=== PATIENT | male | born 1945 | race Caucasian/White ===

== ENCOUNTER 2018-10-17 21:21 | Emergency (ER) | payer MEDICARE, OTHER, MEDICAID ==
[2018-10-17] MEDS ORDERED: Haloperidol Lactate 5 MG/ML SDV IM ONE (21:30)
[2018-10-17] MEDS ORDERED: Haloperidol Lactate 5 MG/ML SDV ONE (21:33)
[2018-10-17] MEDS ORDERED: Sodium Chloride 0.9% 1,000 ML IV ONE (21:40)
[2018-10-17 22:16] LABS: ANION GAP 16.6 mmol/L (10-20); CHLORIDE,CL 103 mmol/L (98-107); SODIUM,NA 138 mmol/L (136-145)
[2018-10-17] MEDS ORDERED: Acetaminophen 650 MG Supp RECTAL ONE (22:35)
[2018-10-17] MEDS ORDERED: cefTRIAXone 1 GM Vial IVPUSH ONE (22:55)
[2018-10-17] MEDS ORDERED: LORazepam 2 MG/ML SDV IVPUSH ONE (23:26)
--- NOTE | 2018-10-18 02:50 | EDM.PDOC ---
ED HPI GENERAL MEDICAL PROBLEM - General Chief Complaint: Fever Stated Complaint: FEVER Time Seen by Provider: 10/17/18 22:30 Source of Information: Reports: Patient, EMS - History of Present Illness INITIAL COMMENTS - FREE TEXT/NARRATIVE: Patient was found to have a fever. He does have history of dementia he also has a history of traumatic brain injury. He is quite combative. We did have to put him in restraints. Lactic acid was elevated. We did recheck his lactic acid four hours later and found it to be normal. He was then discharged at that time. Portable chest x-ray was suggestive. Urine culture is pending. I believe that his infection is secondary to pneumonia. Blood cultures done 2. I will put him on Levaquin until the cultures come back. At times we had to use two or three individuals to assist in blood draws. EMS also helped. Patient also has issues with incontinence. He also will swing his arms around and will inadvertently hit somebody. I also talked to Dr. Denice Hanks regarding this patient. Onset: Today Duration: Getting Worse Severity: Moderate Improves with: Reports: None Associated Symptoms: Reports: Fever/Chills - Related Data Allergies Allergy/AdvReac Type Severity Reaction Status Date / Time No Known Allergies Allergy Verified 10/17/18 22:33 Home Meds: Home Meds clonazePAM [Klonopin] 1 mg PO TID 10/17/18 [History] Levofloxacin [Levaquin] 750 mg PO DAILY #7 tablet 10/18/18 [Rx] QUEtiapine [SEROquel] 100 mg PO TID 10/18/18 [History] traZODone HCl [Trazodone HCl] 150 mg PO BEDTIME 10/18/18 [History] Past Medical History Cardiovascular History: Reports: High Cholesterol Gastrointestinal History: Reports: Chronic Constipation, Other (See Below) Other Gastrointestinal History: Dysphagia Musculoskeletal History: Reports: Osteoporosis Neurological History: Reports: Seizure, Other (See Below) Other Neuro History: Epilepsy, Traumatic Brain Injury Psychiatric History: Reports: Dementia, Schizophrenia, Other (See Below) Other Psychiatric History: Insomnia Endocrine/Metabolic History: Reports: Hypothyroidism Hematologic History: Reports: B12 Deficiency Social & Family History - Tobacco Use Smoking Status *Q: Unknown Ever Smoked ED ROS GENERAL - Review of Systems Review Of Systems: Unable To Obtain ED EXAM, GENERAL - Physical Exam Exam: See Below Exam Limited By: Combative/Threatening General Appearance: Moderate Distress Throat/Mouth: Normal Inspection, Normal Lips Head: Atraumatic, Normocephalic Neck: Normal Inspection, Supple Respiratory/Chest: Other (Somewhat coarse more on the right than the left.) Cardiovascular: Normal Peripheral Pulses, Regular Rate, Rhythm Extremities: Normal Inspection, Normal Range of Motion Neurological: Confused, Disoriented. No: Normal Cognition Psychiatric: Anxious Skin Exam: Warm Course - Vital Signs Text/Narrative:: His temperature did improve with the Tylenol suppository. Last Recorded V/S: Last Vital Signs Temp 36.8 C 10/18/18 02:05 Pulse 98 10/18/18 02:05 Resp 16 10/18/18 02:05 BP 104/63 10/18/18 02:05 Pulse Ox 94 L 10/18/18 02:05 - Orders/Labs/Meds Labs: Laboratory Tests 10/17/18 10/17/18 10/17/18 Range/Units 21:46 21:46 21:46 WBC 11.9 H (4.0-10.0) x10^3/uL RBC 4.38 L (4.5-6.0) x10^6/uL Hgb 12.0 L (14.0-18.0) g/dL Hct 37.4 L (40.0-52.0) % MCV 85.4 (78.0-93.0) fL MCH 27.4 (26.0-32.0) pg MCHC 32.1 (32.0-36.0) g/dL RDW Coeff of El 15.3 H (10.0-15.0) % Plt Count 260 (130-400) x10^3/uL Neut % (Auto) 83.3 H (50.0-80.0) % Lymph % (Auto) 9.7 L (25.0-50.0) % [place] % (Auto) 6.9 (2.0-11.0) % Eos % (Auto) 0.0 (0.0-4.0) % Baso % (Auto) 0.1 L (0.2-1.2) % Sodium 138 (136-145) mmol/L Potassium 4.6 (3.5-5.1) mmol/L Chloride 103 (98-107) mmol/L Carbon Dioxide 23 (21-32) mmol/L Anion Gap 16.6 (10-20) mmol/L BUN 24 H (7-18) mg/dL Creatinine 1.2 (0.70-1.30) mg/dL Est Cr Clr Drug Dosing TNP Estimated GFR (MDRD) 59 Glucose 111 H (74-106) mg/dL Lactic Acid 3.1 H* (0.4-2.0) mmol/L Calcium 9.0 (8.5-10.1) mg/dL Corrected Calcium 9.56 (8.5-10.1) mg/dL Total Bilirubin 0.4 (0.2-1.0) mg/dL AST 37 (15-37) U/L ALT 23 (16-63) U/L Alkaline Phosphatase 135 H (46-116) U/L C-Reactive Protein 5.4 H (<=0.9) mg/dL Total Protein 7.3 (6.4-8.2) g/dL Albumin 3.3 L (3.4-5.0) g/dL Globulin 4.0 Albumin/Globulin Ratio 0.83 10/18/18 Range/Units 02:03 WBC (4.0-10.0) x10^3/uL RBC (4.5-6.0) x10^6/uL Hgb (14.0-18.0) g/dL Hct (40.0-52.0) % MCV (78.0-93.0) fL MCH (26.0-32.0) pg MCHC (32.0-36.0) g/dL RDW Coeff of El (10.0-15.0) % Plt Count (130-400) x10^3/uL Neut % (Auto) (50.0-80.0) % Lymph % (Auto) (25.0-50.0) % [place] % (Auto) (2.0-11.0) % Eos % (Auto) (0.0-4.0) % Baso % (Auto) (0.2-1.2) % Sodium (136-145) mmol/L Potassium (3.5-5.1) mmol/L Chloride (98-107) mmol/L Carbon Dioxide (21-32) mmol/L Anion Gap (10-20) mmol/L BUN (7-18) mg/dL Creatinine (0.70-1.30) mg/dL Est Cr Clr Drug Dosing Estimated GFR (MDRD) Glucose (74-106) mg/dL Lactic Acid 1.8 (0.4-2.0) mmol/L Calcium (8.5-10.1) mg/dL Corrected Calcium (8.5-10.1) mg/dL Total Bilirubin (0.2-1.0) mg/dL AST (15-37) U/L ALT (16-63) U/L Alkaline Phosphatase (46-116) U/L C-Reactive Protein (<=0.9) mg/dL Total Protein (6.4-8.2) g/dL Albumin (3.4-5.0) g/dL Globulin Albumin/Globulin Ratio Meds: Medications Discontinued Medications Generic Name Dose Route Start Last Admin Trade Name Freq PRN Reason Stop Dose Admin Acetaminophen 650 mg 10/17/18 22:35 10/17/18 22:38 Tylenol RECTAL 10/17/18 22:36 650 mg NOW ONE Administration Ceftriaxone Sodium 1 gm 10/17/18 22:55 10/17/18 23:00 Rocephin IVPUSH 10/17/18 22:56 1 gm STAT ONE Administration Chlorpromazine HCl Confirm 10/17/18 21:34 10/17/18 22:45 Thorazine Administered 10/17/18 21:35 Not Given Dose 50 mg .ROUTE .STK-MED ONE Chlorpromazine HCl 25 mg 10/17/18 22:34 10/17/18 21:46 Thorazine IM 10/17/18 22:35 25 mg ONETIME ONE Administration Haloperidol Lactate Confirm 10/17/18 21:33 10/17/18 22:45 Haldol Administered 10/17/18 21:34 Not Given Dose 5 mg .ROUTE .STK-MED ONE Haloperidol Lactate 5 mg 10/17/18 21:30 10/17/18 21:45 Haldol IM 10/17/18 21:31 5 mg STAT ONE Administration Sodium Chloride 1,000 mls @ 999 mls/hr 10/17/18 21:40 10/17/18 22:00 Normal Saline IV 10/17/18 22:40 999 mls/hr ONETIME ONE Administration Levofloxacin 2 packet 10/18/18 02:54 10/18/18 03:00 Take Home: Levofloxacin 500 Mg, 1 Tab Pack PO 10/18/18 02:55 2 packet ONETIME ONE Administration Lorazepam 2 mg 10/17/18 23:26 10/17/18 23:33 Ativan IVPUSH 10/17/18 23:27 2 mg ONETIME ONE Administration Departure - Departure Time of Disposition: 02:47 Disposition: DC/Tfer to SNF 03 Condition: Fair Clinical Impression: Sepsis, unspecified organism Qualifiers: Sepsis type: sepsis due to unspecified organism Qualified Code(s): A41.9 - Sepsis, unspecified organism - Discharge Information *PRESCRIPTION DRUG MONITORING PROGRAM REVIEWED*: Not Applicable *COPY OF PRESCRIPTION DRUG MONITORING REPORT IN PATIENT WILLIAM: Not Applicable Prescriptions: Levofloxacin [Levaquin] 750 mg PO DAILY #7 tablet Referrals: Jorge Shoemaker MD [Primary Care Provider] - Forms: ED Department Discharge
[2018-10-18] MEDS ORDERED: Take Home: Levofloxacin 500 MG Tab, 1 Tab Pack PO ONE (02:54)
--- NOTE | 2018-10-18 18:41 | CR ---
[id number] RAD/RAD Chest PA or AP 1V EXAM: FRONTAL CHEST INDICATION: Fever. COMPARISON: None. DISCUSSION: Hypoinflation. Mild to moderate bilateral interstitial edema and/or infiltrates. Linear scarring or atelectasis in the left lung base with possible left effusion. Borderline cardiomegaly. IMPRESSION: 1. Mild to moderate bilateral interstitial edema and/or infiltrates. Distribution favors edema, but atypical infection could have this appearance in the context of fever. Sebastián Carter MD 10/18/18 [id number] Thank you for allowing us to participate in the care of your patient.
== END 2018-10-18 03:30 ==
LOC: VM.ED 21:21 → UNDOADMIN 23:45 → UNDODISIN 23:45 → VM.MS 23:45
DX: A41.9 Sepsis, unspecified organism (principal)
CPT/HCPCS: 36415; 71045; 80053; 83605; 85025; 86140; 87040; 87804; 87804-59; 96361; 96372; 96374; 96375; 99285; A9270-GY; J0696; J1630; J2060; J3230; J7030

== ENCOUNTER 2020-08-11 12:09 | Inpatient (IN) | payer MEDICARE, MEDICAID ==
[2020-08-11] MEDS ORDERED: Sodium Chloride 0.9% 1,000 ML IV ONE (13:01)
[2020-08-11] MEDS ORDERED: Cefepime 1 GM in Sodium Chloride 0.9% 100 ML IV ONE (13:06)
[2020-08-11] MEDS ORDERED: Piperacillin/Tazobactam 3.375 GM in Sodium Chloride 0.9% 100 ML IV ONE (13:06)
--- NOTE | 2020-08-11 13:15 | EDM.PDOC ---
ED HPI GENERAL MEDICAL PROBLEM - General Stated Complaint: RESPIRATORY Time Seen by Provider: 08/11/20 12:31 Source of Information: Reports: EMS, Care Home Records - History of Present Illness INITIAL COMMENTS - FREE TEXT/NARRATIVE: Trell is a 74 y/o male prison resident who was sent to the ER today via EMS for increased lethargy. He was diagnosed with pneumonia on 08/01/20 and started on a 7 day course of Augmentin and Doxycycline. On 08/08/20 he was still ill and then Ceftriaxone 1gm IM x 3 days was started, he has received 2 doses but over the last 24 hours he has become more lethargic and not eating. He was also given a liter of LR at the care center. He is usualyl combative and much more alert, but he offers no verbal response and is not his normal self. - Related Data Allergies Allergy/AdvReac Type Severity Reaction Status Date / Time No Known Allergies Allergy Verified 10/17/18 22:33 Home Meds: Home Meds clonazePAM [Klonopin] 1 mg PO TID 10/17/18 [History] QUEtiapine [SEROquel] 100 mg PO TID 10/18/18 [History] levoFLOXacin [Levaquin] 750 mg PO DAILY #7 tablet 10/18/18 [Rx] traZODone HCl [Trazodone HCl] 150 mg PO BEDTIME 10/18/18 [History] Past Medical History Cardiovascular History: Reports: High Cholesterol Gastrointestinal History: Reports: Chronic Constipation, Other (See Below) Other Gastrointestinal History: Dysphagia Musculoskeletal History: Reports: Osteoporosis Neurological History: Reports: Seizure, Other (See Below) Other Neuro History: Epilepsy, Traumatic Brain Injury Psychiatric History: Reports: Dementia, Schizophrenia, Other (See Below) Other Psychiatric History: Insomnia Endocrine/Metabolic History: Reports: Hypothyroidism Hematologic History: Reports: B12 Deficiency Review of Systems - Review of Systems Review Of Systems: See Below Reason Not Obtained: Unable to get ROS from patient due to current condition Constitutional: Reports: Weakness Eyes: Reports: No Symptoms Ears: Reports: No Symptoms Nose: Reports: No Symptoms Mouth/Throat: Reports: No Symptoms, Difficulty Swallowing Cardiovascular: Reports: No Symptoms GI/Abdominal: Reports: Decreased Appetite Genitourinary: Reports: No Symptoms Musculoskeletal: Reports: No Symptoms Skin: Reports: No Symptoms Neurological: Reports: Weakness ED EXAM, GENERAL - Physical Exam Exam: See Below General Appearance: Other (Elderly male, lying quietly on the ER cart. He does not offer any verbal response and is lying very still.) Eye Exam: Bilateral Eye: PERRL Ears: Normal External Exam, Other (Cancals blocked with yellow cerumen) Nose: Normal Inspection Throat/Mouth: Other (Widespread dental repair with some teeth in poor repair, tongue is dry) Head: Atraumatic, Normocephalic Neck: Normal Inspection, Supple Respiratory/Chest: No Respiratory Distress, Decreased Breath Sounds (bilateral bases), Other (4 liters/min nasal cannula oxygen on) Cardiovascular: Normal Peripheral Pulses, Regular Rate, Rhythm GI/Abdominal: Normal Bowel Sounds, Soft, Non-Tender (Male) Exam: Deferred Rectal (Males) Exam: Deferred Back Exam: Normal Inspection Extremities: Normal Inspection, Normal Capillary Refill Neurological: Unresponsive Skin Exam: Warm, Dry, Normal Color, No Rash Lymphatic: No Adenopathy Course - Vital Signs Text/Narrative:: 1232 The patient was seen by the IMAGING ACCOUNT MANAGER. Labs, CXR ordered. IV was in on arrival and Cefipime and Zosyn were ordered for abx since he had failed Ceftriaxone. [address] Paz that patient needs acute admission. Probable Pneumonia persisting along with Dehydration. Will order COVID test for admission. Patient to be admitted to Acute care to Dr Paz. Last Recorded V/S: Last Vital Signs Temp 36.8 C 08/11/20 12:15 Pulse 100 08/11/20 12:15 Resp 16 08/11/20 12:15 BP 105/68 08/11/20 12:15 Pulse Ox 99 08/11/20 12:15 - Orders/Labs/Meds Orders: Active Orders 24 hr Category Date Time Status Patient Status [ADT] Routine ADT 08/11/20 13:52 Active CULTURE BLOOD [BC] Stat Lab 08/11/20 13:15 Received CULTURE BLOOD [BC] Stat Lab 08/11/20 13:16 Received Sodium Chloride 0.9% [Saline Flush] Med 08/11/20 13:01 Active 10 ml FLUSH ASDIRECTED PRN Saline Lock Insert [OM.PC] Stat Oth 08/11/20 13:01 Ordered Medication Orders Sodium Chloride (Saline Flush) 10 ml FLUSH ASDIRECTED PRN PRN Reason: Keep Vein Open Labs: Laboratory Tests 08/11/20 08/11/20 08/11/20 Range/Units 13:15 13:15 13:15 WBC 13.6 H (4.0-10.0) x10^3/uL RBC 5.14 (4.5-6.0) x10^6/uL Hgb 14.5 D (14.0-18.0) g/dL Hct 45.0 (40.0-52.0) % MCV 87.5 (78.0-93.0) fL MCH 28.2 (26.0-32.0) pg MCHC 32.2 (32.0-36.0) g/dL RDW Coeff of El 15.7 H (10.0-15.0) % Plt Count 272 (130-400) x10^3/uL Neut % (Auto) 88.5 H (50.0-80.0) % Lymph % (Auto) 6.0 L (25.0-50.0) % [place] % (Auto) 5.4 (2.0-11.0) % Eos % (Auto) 0.0 (0.0-4.0) % Baso % (Auto) 0.1 L (0.2-1.2) % Sodium 147 H (136-145) mmol/L Potassium 3.6 (3.5-5.1) mmol/L Chloride 109 H (98-107) mmol/L Carbon Dioxide 28 (21-32) mmol/L Anion Gap 13.6 (10-20) mmol/L BUN 23 H (7-18) mg/dL Creatinine 1.2 (0.70-1.30) mg/dL Est Cr Clr Drug Dosing TNP Estimated GFR (MDRD) 59 Glucose 96 (74-106) mg/dL Lactic Acid 1.3 (0.4-2.0) mmol/L Calcium 9.1 (8.5-10.1) mg/dL Corrected Calcium 10.22 H (8.5-10.1) mg/dL Total Bilirubin 0.5 (0.2-1.0) mg/dL AST 62 H (15-37) U/L ALT 32 (16-63) U/L Alkaline Phosphatase 157 H (46-116) U/L Total Protein 7.4 (6.4-8.2) g/dL Albumin 2.6 L (3.4-5.0) g/dL Globulin 4.8 Albumin/Globulin Ratio 0.54 SARS CoV-2 RNA Rapid WILIAM (NEGATIVE) 08/11/20 Range/Units 13:51 WBC (4.0-10.0) x10^3/uL RBC (4.5-6.0) x10^6/uL Hgb (14.0-18.0) g/dL Hct (40.0-52.0) % MCV (78.0-93.0) fL MCH (26.0-32.0) pg MCHC (32.0-36.0) g/dL RDW Coeff of El (10.0-15.0) % Plt Count (130-400) x10^3/uL Neut % (Auto) (50.0-80.0) % Lymph % (Auto) (25.0-50.0) % [place] % (Auto) (2.0-11.0) % Eos % (Auto) (0.0-4.0) % Baso % (Auto) (0.2-1.2) % Sodium (136-145) mmol/L Potassium (3.5-5.1) mmol/L Chloride (98-107) mmol/L Carbon Dioxide (21-32) mmol/L Anion Gap (10-20) mmol/L BUN (7-18) mg/dL Creatinine (0.70-1.30) mg/dL Est Cr Clr Drug Dosing Estimated GFR (MDRD) Glucose (74-106) mg/dL Lactic Acid (0.4-2.0) mmol/L Calcium (8.5-10.1) mg/dL Corrected Calcium (8.5-10.1) mg/dL Total Bilirubin (0.2-1.0) mg/dL AST (15-37) U/L ALT (16-63) U/L Alkaline Phosphatase (46-116) U/L Total Protein (6.4-8.2) g/dL Albumin (3.4-5.0) g/dL Globulin Albumin/Globulin Ratio SARS CoV-2 RNA Rapid WILIAM Negative (NEGATIVE) Meds: Medications Generic Name Dose Route Start Last Admin Trade Name Freq PRN Reason Stop Dose Admin Sodium Chloride 10 ml 08/11/20 13:01 Saline Flush FLUSH ASDIRECTED PRN Keep Vein Open Discontinued Medications Generic Name Dose Route Start Last Admin Trade Name Freq PRN Reason Stop Dose Admin Sodium Chloride 1,000 mls @ 999 mls/hr 08/11/20 13:01 08/11/20 13:36 Normal Saline IV 08/11/20 14:01 999 mls/hr ONETIME ONE Administration Cefepime HCl 1 gm/ Sodium 100 mls @ 200 mls/hr 08/11/20 13:06 08/11/20 13:37 Chloride IV 08/11/20 13:35 200 mls/hr STAT ONE Administration Piperacillin Sod/Tazobactam 100 mls @ 200 mls/hr 08/11/20 13:06 08/11/20 13:36 Sod 3.375 gm/ Sodium Chloride IV 08/11/20 13:35 200 mls/hr STAT ONE Administration - Radiology Interpretation Free Text/Narrative:: XR-Chest 1V=bilateral infiltrates, right increasing and left decreasing (See final report) Departure - Departure Time of Disposition: 14:15 Disposition: Admitted As Inpatient 64 Condition: Fair Clinical Impression: Dehydration Pneumonia Qualifiers: Pneumonia type: due to unspecified organism Laterality: bilateral Lung location: unspecified part of lung Qualified Code(s): J18.9 - Pneumonia, unspecified organism - Discharge Information Referrals: Pooja Paz MD [Primary Care Provider] - Sepsis Event Note (ED) - Focused Exam Vital Signs: Vital Signs Temp Pulse Resp BP Pulse Ox 08/11/20 12:15 36.8 C 100 16 105/68 99 - My Orders Last 24 Hours: My Active Orders 08/11/20 13:01 Sodium Chloride 0.9% [Saline Flush] 10 ml FLUSH ASDIRECTED PRN Saline Lock Insert [OM.PC] Stat 08/11/20 13:15 CULTURE BLOOD [BC] Stat 08/11/20 13:16 CULTURE BLOOD [BC] Stat 08/11/20 13:52 Patient Status [ADT] Routine - Assessment/Plan Last 24 Hours: My Active Orders 08/11/20 13:01 Sodium Chloride 0.9% [Saline Flush] 10 ml FLUSH ASDIRECTED PRN Saline Lock Insert [OM.PC] Stat 08/11/20 13:15 CULTURE BLOOD [BC] Stat 08/11/20 13:16 CULTURE BLOOD [BC] Stat 08/11/20 13:52 Patient Status [ADT] Routine Assessment:: 1)Pneumonia 2)Dehydration Plan: -Admit to Acute care in Rm#[id number] Paz. See H&P and acute orders per Dr Paz.
[2020-08-11 13:49] LABS: ANION GAP 13.6 mmol/L (10-20); CHLORIDE,CL 109 mmol/L (98-107); SODIUM,NA 147 mmol/L (136-145)
--- NOTE | 2020-08-11 13:52 | CR ---
[id number] RAD/RAD Chest PA or AP 1V EXAM: FRONTAL CHEST INDICATION: PNEUMONIA. COMPARISON: October 17, 2018. DISCUSSION: There are patchy infiltrates throughout the right lung which are most prominent in the lung base and mild right perihilar infiltrates. These have increased on the left and decreased on the right. Borderline heart size without evidence of congestive heart failure. Possible hiatus hernia. IMPRESSION: 1. Residual or recurrent bilateral infiltrates, increased on the right and decreased on the left. Sebastián Carter MD 08/11/20 6830 Thank you for allowing us to participate in the care of your patient.
--- NOTE | 2020-08-11 15:03 | PCM.HP.2 ---
H&P History of Present Illness - General Date of Service: 08/11/20 Admit Problem/Dx: Admission Diagnosis/Problem Admission Diagnosis/Problem Pneumonia Source of Information: Patient History Limitations: Reports: Altered Mental Status - History of Present Illness Initial Comments - Free Text/Narative: Mr. Knowles is a 74 yo male with PMH of a traumatic brain injury, chronic s chizophrenia, cerebrovascular disease, B12 deficiency, hypothyroidism, seizure disorder, constipation, chronic kidney disease stage III, and osteoarthritis who presented to the emergency room for further evaluation of lethargy. The patient is not awake and does not answer questions. All the history is obtained from nursing staff at [facility] and through chart review. He has been not acting like his usual self for the past 3 days. He has been very sleepy and has not really been interactive at all. He does have a history of being agitated so this is a significant change for him. He has also had a cough now for nearly 2 weeks with multiple negative rapid COVID tests. He has not had any changes in vital signs nor any signs of respiratory distress. No recent seizure activity. No falls or known head injuries. He has been voiding normally. He has not been eating or drinking anything for at least 2-3 days. He has done similar things in the past to a milder degree as a behavior issue but nothing to this extent. He was started on ceftriaxone 2 days ago and given a fluid bolus last night. These interventions have not resulted in any improvement in symptoms. Therefore , further evaluation was recommended. - Related Data Allergies/Adverse Reactions: Allergies Allergy/AdvReac Type Severity Reaction Status Date / Time No Known Allergies Allergy Verified 08/11/20 14:39 Home Medications: Home Meds clonazePAM [Klonopin] 1 mg PO BID 10/17/18 [History] QUEtiapine [SEROquel] 200 mg PO TID 10/18/18 [History] traZODone HCl [Trazodone HCl] 150 mg PO BEDTIME 10/18/18 [History] Acetaminophen 650 mg PO Q4H PRN 08/11/20 [History] Bisacodyl [Gentle Laxative] 10 mg RC DAILY PRN 08/11/20 [History] Calcium Carb, Citrate/Vit D3 [Calcium + D3 ER Tablet] 1 each PO BID 08/11/20 [History] Cyanocobalamin (Vitamin B-12) [B-12] 1,000 mcg PO DAILY 08/11/20 [History] Docusate Sodium/Sennosides [Senna Plus] 1 each PO BID 08/11/20 [History] Ferrous Sulfate 325 mg PO MOWEFR 08/11/20 [History] Gabapentin [Neurontin] 800 mg PO TID 08/11/20 [History] Levothyroxine [Synthroid] 100 mcg PO ACBREAKFAST 08/11/20 [History] OLANZapine [ZyPREXA] 10 mg PO BID 08/11/20 [History] Omeprazole 20 mg PO DAILY 08/11/20 [History] bisacodyL [Dulcolax] 15 mg PO DAILY PRN 08/11/20 [History] polyethylene glycoL 3350 [MiraLAX] 17 gm PO BID 08/11/20 [History] Past Medical History HEENT History: Reports: None Cardiovascular History: Reports: High Cholesterol Respiratory History: Reports: None Gastrointestinal History: Reports: Chronic Constipation, Other (See Below) Other Gastrointestinal History: Dysphagia Genitourinary History: Reports: None Musculoskeletal History: Reports: Osteoporosis Neurological History: Reports: Seizure, Other (See Below) Other Neuro History: Epilepsy, Traumatic Brain Injury Psychiatric History: Reports: Dementia, Schizophrenia, Other (See Below) Other Psychiatric History: Insomnia Endocrine/Metabolic History: Reports: Hypothyroidism Hematologic History: Reports: B12 Deficiency Oncologic (Cancer) History: Reports: None Dermatologic History: Reports: None Social & Family History - Family History Family Medical History: Unobtainable (patient unable to answer and nothing listed in EMR) - Tobacco Use Tobacco Use Status *Q: Never Tobacco User - Alcohol Use Alcohol Use History: No Alcohol Use in Last Twelve Months: No - Recreational Drug Use Recreational Drug Use: No - Living Situation & Occupation Living situation: Reports: Extended Care Facility Occupation: Disabled H&P Review of Systems - Review of Systems: Review Of Systems: Unable To Obtain Reason Not Obtained: patient is lethargic and does not awake to answer questions Exam - Exam Exam: See Below - Vital Signs Vital Signs: Last Vital Signs Temp 36.8 C 08/11/20 12:15 Pulse 80 08/11/20 14:50 Resp 16 08/11/20 14:50 BP 109/68 08/11/20 14:50 Pulse Ox 98 08/11/20 14:50 Weight: 77.111 kg - Exam General: Obtunded (but otherwise in no distress; does appear to attempt to open his eyes after I assist in opening his lids) HEENT: Conjunctiva Clear, Mucosa Moist & [place], Posterior Pharynx Clear, Pupils Equal, Pupils Reactive Neck: Supple, Trachea Midline. No: Lymphadenopathy, Thyromegaly Lungs: Clear to Auscultation (but exam limited by patient inability to participate in exam), Normal Respiratory Effort Cardiovascular: Regular Rate, Regular Rhythm, Normal S1, Normal S2 GI/Abdominal Exam: Normal Bowel Sounds, Soft, Non-Tender, No Organomegaly, No Distention, No Mass Extremities: Normal Inspection, Non-Tender, No Pedal Edema, Normal Capillary Refill Peripheral Pulses: 2+: Radial (L), Radial (R) Skin: Warm, Dry, Intact Neurological: Normal Tone - Patient Data Lab Results Last 24 hrs: Laboratory Results - last 24 hr 08/11/20 08/11/20 08/11/20 Range/Units 13:15 13:15 13:15 WBC 13.6 H (4.0-10.0) x10^3/uL RBC 5.14 (4.5-6.0) x10^6/uL Hgb 14.5 D (14.0-18.0) g/dL Hct 45.0 (40.0-52.0) % MCV 87.5 (78.0-93.0) fL MCH 28.2 (26.0-32.0) pg MCHC 32.2 (32.0-36.0) g/dL RDW Coeff of El 15.7 H (10.0-15.0) % Plt Count 272 (130-400) x10^3/uL Neut % (Auto) 88.5 H (50.0-80.0) % Lymph % (Auto) 6.0 L (25.0-50.0) % Guthrie % (Auto) 5.4 (2.0-11.0) % Eos % (Auto) 0.0 (0.0-4.0) % Baso % (Auto) 0.1 L (0.2-1.2) % Sodium 147 H (136-145) mmol/L Potassium 3.6 (3.5-5.1) mmol/L Chloride 109 H (98-107) mmol/L Carbon Dioxide 28 (21-32) mmol/L Anion Gap 13.6 (10-20) mmol/L BUN 23 H (7-18) mg/dL Creatinine 1.2 (0.70-1.30) mg/dL Est Cr Clr Drug Dosing TNP Estimated GFR (MDRD) 59 Glucose 96 (74-106) mg/dL Lactic Acid 1.3 (0.4-2.0) mmol/L Calcium 9.1 (8.5-10.1) mg/dL Corrected Calcium 10.22 H (8.5-10.1) mg/dL Total Bilirubin 0.5 (0.2-1.0) mg/dL AST 62 H (15-37) U/L ALT 32 (16-63) U/L Alkaline Phosphatase 157 H (46-116) U/L Total Protein 7.4 (6.4-8.2) g/dL Albumin 2.6 L (3.4-5.0) g/dL Globulin 4.8 Albumin/Globulin Ratio 0.54 SARS CoV-2 RNA Rapid WILIAM (NEGATIVE) 08/11/20 Range/Units 13:51 WBC (4.0-10.0) x10^3/uL RBC (4.5-6.0) x10^6/uL Hgb (14.0-18.0) g/dL Hct (40.0-52.0) % MCV (78.0-93.0) fL MCH (26.0-32.0) pg MCHC (32.0-36.0) g/dL RDW Coeff of El (10.0-15.0) % Plt Count (130-400) x10^3/uL Neut % (Auto) (50.0-80.0) % Lymph % (Auto) (25.0-50.0) % Guthrie % (Auto) (2.0-11.0) % Eos % (Auto) (0.0-4.0) % Baso % (Auto) (0.2-1.2) % Sodium (136-145) mmol/L Potassium (3.5-5.1) mmol/L Chloride (98-107) mmol/L Carbon Dioxide (21-32) mmol/L Anion Gap (10-20) mmol/L BUN (7-18) mg/dL Creatinine (0.70-1.30) mg/dL Est Cr Clr Drug Dosing Estimated GFR (MDRD) Glucose (74-106) mg/dL Lactic Acid (0.4-2.0) mmol/L Calcium (8.5-10.1) mg/dL Corrected Calcium (8.5-10.1) mg/dL Total Bilirubin (0.2-1.0) mg/dL AST (15-37) U/L ALT (16-63) U/L Alkaline Phosphatase (46-116) U/L Total Protein (6.4-8.2) g/dL Albumin (3.4-5.0) g/dL Globulin Albumin/Globulin Ratio SARS CoV-2 RNA Rapid WILIAM Negative (NEGATIVE) Result Diagrams: 08/11/20 13:15 08/11/20 13:15 Sepsis Event Note - Evaluation Sepsis Screening Result: No Definite Risk - Focused Exam Vital Signs: Vital Signs Temp Pulse Resp BP Pulse Ox 08/11/20 14:50 80 16 109/68 98 08/11/20 12:15 36.8 C 100 16 105/68 99 - Problem List (1) Delirium SNOMED Code(s): 5891982 ICD Code: R41.0 - DISORIENTATION, UNSPECIFIED Status: Acute Current Visi t: Yes (2) Pneumonia SNOMED Code(s): 607666094 ICD Code: J18.9 - PNEUMONIA, UNSPECIFIED ORGANISM Status: Acute Current Visit: Yes Qualifiers: Pneumonia type: due to unspecified organism Laterality: bilateral Lung location: unspecified part of lung Qualified Code(s): J18.9 - Pneumonia, unspecified organism (3) Dehydration SNOMED Code(s): 23683006 ICD Code: E86.0 - DEHYDRATION Status: Acute Current Visit: Yes (4) Acute on chronic renal failure SNOMED Code(s): 261816333 ICD Code: N17.9 - ACUTE KIDNEY FAILURE, UNSPECIFIED; N18.9 - CHRONIC KIDNEY DISEASE, UNSPECIFIED Status: Acute Current Visit: Yes Qualifiers: Acute renal failure type: unspecified Chronic kidney disease stage: stage 3 (moderate) Chronic kidney disease stage 3 subtype: unspecified whether 3a or 3b Qualified Code(s): N17.9 - Acute kidney failure, unspecified; N18.30 - Chronic kidney disease, stage 3 unspecified (5) Hypothyroidism SNOMED Code(s): 34653020 ICD Code: E03.9 - HYPOTHYROIDISM, UNSPECIFIED Status: Chronic Current Visit: Yes Qualifiers: Hypothyroidism type: acquired Qualified Code(s): E03.9 - Hypothyroidism, unspecified (6) Constipation SNOMED Code(s): 74860891 ICD Code: K59.00 - CONSTIPATION, UNSPECIFIED Status: Chronic Current Visit: No Qualifiers: Constipation type: unspecified constipation type Qualified Code(s): K59.00 - Constipation, unspecified (7) Hypercholesterolemia SNOMED Code(s): 06299463 ICD Code: E78.00 - PURE HYPERCHOLESTEROLEMIA, UNSPECIFIED Status: Chronic Current Visit: No (8) Osteoporosis SNOMED Code(s): 95833354 ICD Code: M81.0 - AGE-RELATED OSTEOPOROSIS W/O CURRENT PATHOLOGICAL FRACTURE Status: Chronic Current Visit: No Qualifiers: Osteoporosis type: age-related Presence of current pathological fracture: without current pathological fracture Qualified Code(s): M81.0 - Age-related osteoporosis without current pathological fracture (9) Schizophrenia SNOMED Code(s): 04760896 ICD Code: F20.9 - SCHIZOPHRENIA, UNSPECIFIED Status: Chronic Current Visit: No Qualifiers: Schizophrenia type: unspecified Qualified Code(s): F20.9 - Schizophrenia, unspecified (10) Seizure SNOMED Code(s): 69209549 ICD Code: R56.9 - UNSPECIFIED CONVULSIONS Status: Chronic Current Visit: No (11) TBI (traumatic brain injury) SNOMED Code(s): 269911409 ICD Code: S06.9X9A - UNSP INTRACRANIAL INJURY W LOC OF UNSP DURATION, INIT Status: Chronic Current Visit: No Qualifiers: Encounter type: sequela Loss of consciousness presence/duration: with LOC of unspecified duration Qualified Code(s): S06.9X9S - Unspecified intracranial injury with loss of consciousness of unspecified duration, sequela Problem List Initiated/Reviewed/Updated: Yes Orders Last 24hrs: Active Orders 24 hr Category Date Time Status Patient Status [ADT] Routine ADT 08/11/20 13:52 Active Head wo Cont [CT] Stat Exams 08/11/20 14:40 Ordered BASIC METABOLIC PANEL,BMP [CHEM] Routine Lab 08/12/20 05:11 Ordered C-REACTIVE PROTEIN [CHEM] Routine Lab 08/12/20 05:11 Ordered CBC WITH AUTO DIFF [HEME] Routine Lab 08/12/20 05:11 Ordered CULTURE BLOOD [BC] Stat Lab 08/11/20 13:15 Received CULTURE BLOOD [BC] Stat Lab 08/11/20 13:16 Received Lactated Ringers [Ringers, Lactated] 1,000 ml Med 08/11/20 15:00 Ordered IV ASDIRECTED Piperacillin/Tazobactam [Zosyn] 4.5 gm Med 08/11/20 21:00 Ordered Sodium Chloride 0.9% [Normal Saline] 100 ml IV Q6H Sodium Chloride 0.9% [Saline Flush] Med 08/11/20 13:01 Active 10 ml FLUSH ASDIRECTED PRN Saline Lock Insert [OM.PC] Stat Oth 08/11/20 13:01 Ordered Medication Orders Lactated Ringer's (Ringers, Lactated) 1,000 mls @ 150 mls/hr IV ASDIRECTED BREE Piperacillin Sod/Tazobactam (Sod 4.5 gm/ Sodium Chloride) 100 mls @ 25 mls/hr IV Q6H BREE Sodium Chloride (Saline Flush) 10 ml FLUSH ASDIRECTED PRN PRN Reason: Keep Vein Open Assessment/Plan Comment:: 74 yo male admitted with delirium presumed to be secondary to community acquired pneumonia not responsive to outpatient therapies. #1 Delirium - Current mental status impairment is more than I would expect given overall mild degree of pneumonia on CXR, stability of WBC from 2 days ago, and lack of vital sign changes. - Main differential for infection at this time is polypharmacy. See dose adjustments below. - However, his labs were otherwise unremarkable for any hepatic disfunction, lactic acidosis, significant electrolyte abnormalities, or severe anemia. - CT head done and without acute findings. - Possibly is related to his underlying infection and will improve with time. If not, main other differential would be a primary [employer] etiology in which case an MRI may be helpful. Consider status epilepticus but that is extremely unlikely based on exam and infrequent nature of seizures previously. Is not consistent with meningitis but an LP to rule out other causes could be considered if need be. - Benefit of further work-up is likely minimal but POA strongly wishes to pursue all possibilities/treatments. - Will monitor for improvement and reassess need for further evaluation. #2 Community acquired pneumonia - Does have pneumonia on x-ray. Does not meet sepsis criteria on admit. - Influenza negative last week. Multiple negative COVID tests in the past 2 weeks. - Continue supplemental oxygen to maintain saturations >90%. Will wean as able. - Given lack of response to ceftriaxone, will broaden to zosyn. Clinical picture not at all consistent with MRSA; therefore, will hold off on vancomycin for now. Will add this if any changes/lack of improvement. - Repeat CXR tomorrow once he has been fluid resuscitated. #3 Dehydration #4 Acute on chronic renal failure - Likely due to severe decrease in oral intake/prerenal etiology. - Will do LR @ 150 cc/hr overnight. - Recheck labs in the am. #5 Hypothyroidism #6 Constipation #7 Hyperlipidemia #8 Osteoporosis #9 Schizophrenia #10 Seizure disorder #11 Traumatic brain injury - Will update TSH with am labs. - Patient is highly unlikely to have much success with swallowing; therefore, will hold his oral bowel regimen and vitamins. - Will continue gabapentin and clonazepam as per usual given risk for seizures if held. - Will continue pm dosing for seroquel and zyprexa but hold daytime doses yamileth orrow. Will decrease trazodone to 100 mg at hs. Hopefully some of these medication changes will help with his mentation. Patient will be admitted to acute. See details under problems above. Discussed with his POA and she is agreeable to this plan. Did also discuss with her that his status is guarded based on degree of mental status change without significant vital sign or other changes. She voices understanding. Code status is full - discussed with POA on admission. Lovenox for VTE prophylaxis. Dr. Alfred to follow for the weekend.
--- NOTE | 2020-08-11 15:13 | CT ---
[id number] CT/CT Head WO IV EXAM: CT Head WO IV CLINICAL DATA: CHANGE IN MENTAL STATUS COMPARISON: NO PREVIOUS SIMILAR EXAM IS AVAILABLE FOR COMPARISON. FINDINGS: There is no mass or mass effect. There is no hemorrhage or hydrocephalus. There are no extra-axial fluid collections. There are no sites of abnormal attenuation. IMPRESSION: NO PLAIN CT EVIDENCE OF ACUTE INTRACRANIAL PROCESS. Robson Carolina MD 08/11/20 9813 Thank you for allowing us to participate in the care of your patient.
[2020-08-11] MEDS ORDERED: Acetaminophen 325 MG Tab PO PRN (15:23)
[2020-08-11] MEDS ORDERED: Bisacodyl 10 MG Supp RECTAL PRN (15:23)
[2020-08-11] MEDS ORDERED: Bisacodyl 5 MG Tab PO PRN (15:23)
[2020-08-11] MEDS: Lactated Ringers 1,000 ML IV SCH ×2 (16:50→23:52)
[2020-08-11] MEDS: Sodium Chloride 0.9% 10 ML Syringe FLUSH PRN (19:53)
[2020-08-11] MEDS: Piperacillin/Tazobactam 3.375 GM in Sodium Chloride 0.9% 100 ML IV SCH (19:55)
[2020-08-11] MEDS: ClonazePAM 0.5 MG Tab PO SCH (21:32)
[2020-08-11] MEDS: traZODone 50 MG Tab PO SCH (21:33)
[2020-08-11] MEDS: Gabapentin 400 MG Cap PO SCH (21:33)
[2020-08-11] MEDS: OLANZapine 10 MG Tab PO SCH (21:33)
[2020-08-11] MEDS: QUEtiapine 100 MG Tab PO SCH (21:33)
[2020-08-12] MEDS: Piperacillin/Tazobactam 3.375 GM in Sodium Chloride 0.9% 100 ML IV SCH ×3 (04:21→19:46)
[2020-08-12] MEDS: Levothyroxine 100 MCG Tab PO SCH ×2 (06:50→08:03)
[2020-08-12] MEDS: Omeprazole 20 MG Cap.CR PO SCH ×2 (06:50→08:03)
[2020-08-12] MEDS: Lactated Ringers 1,000 ML IV SCH ×2 (06:57→14:06)
[2020-08-12] MEDS: Enoxaparin 40 MG/0.4 ML Syringe SUBCUT SCH (08:02)
[2020-08-12] MEDS: ClonazePAM 0.5 MG Tab PO SCH ×2 (08:02→19:47)
[2020-08-12] MEDS: Gabapentin 400 MG Cap PO SCH ×3 (08:03→19:47)
[2020-08-12 08:24] LABS: ANION GAP 12.5 mmol/L (10-20); CHLORIDE,CL 112 mmol/L (98-107); SODIUM,NA 147 mmol/L (136-145)
--- NOTE | 2020-08-12 09:14 | PN ---
Progress Note for SHON POZO Date: 08/12/2020 Room #: VM.203 SUBJECTIVE: This is patient's 2nd hospital day for being admitted with pneumonia and lethargy. The patient has started to become more alert this morning. The patient does have a cough. He is still nonverbal, but he will smile. His urine was noted to have gone from more of a dark cola-color to now it is dark-yellow in nature. OBJECTIVE: Vital Signs: His temperature is 37.6, pulse 96, blood pressure is 100/57, respiratory rate is 22, saturations are 98% on 2 L. General: The patient's eyes are open. He is alert in bed, coughing. Lungs: Reveal some fine crackles on the left base and right. Heart: Regular rate and rhythm. Abdomen: Soft. Extremities: Lower Extremities, no edema. He does have a scab on his left toe. Extremities, he tends to have them in contracted position. : Urine is yellow. Neurologic: The patient is nonverbal. He is demented. LABORATORY DATA: His lab shows his white blood cell count 9.0, hemoglobin 12.72, 69 segs. Sodium 147, potassium 3.5, creatinine 1.1, GFR greater than 60. Lactic acid today is 0.8. His CRP is still pending today. TSH was 2.21. To note, his COVID test yesterday was negative. IMPRESSION: 1. Pneumonia.with sepsis. 2. Traumatic brain injury. 3. Chronic schizophrenia. 4. Lethargy, which is improving. 5. Dehydration, improving. PLAN: We will continue IV fluid rate at the same rate. We will continue his IV Zosyn. We will right now hold on his antipsychotic medications as he has been lethargic. May need to resume these tomorrow. We will repeat lab work tomorrow. The patient is still on Lovenox for DVT prophylaxis. GM08/12/2020 08:44:13 MODL: 08/12/2020 09:08:37 /[id number] DWAYNE
[2020-08-12] MEDS: Sodium Chloride 0.9% 10 ML Syringe FLUSH PRN (12:00)
[2020-08-12] MEDS: QUEtiapine 100 MG Tab PO SCH (19:47)
[2020-08-12] MEDS: OLANZapine 10 MG Tab PO SCH (19:47)
[2020-08-12] MEDS: traZODone 50 MG Tab PO SCH (19:47)
[2020-08-12] MEDS: guaiFENesin 100 MG/5 ML Soln 10 ML UD Cup PO PRN (20:17)
[2020-08-13] MEDS: Lactated Ringers 1,000 ML IV SCH ×3 (04:31→19:30)
[2020-08-13] MEDS: Piperacillin/Tazobactam 3.375 GM in Sodium Chloride 0.9% 100 ML IV SCH ×3 (04:31→19:29)
[2020-08-13] MEDS: Levothyroxine 100 MCG Tab PO SCH (06:13)
[2020-08-13] MEDS: Omeprazole 20 MG Cap.CR PO SCH (06:13)
[2020-08-13] MEDS: ClonazePAM 0.5 MG Tab PO SCH ×2 (08:05→19:28)
[2020-08-13] MEDS: Enoxaparin 40 MG/0.4 ML Syringe SUBCUT SCH (08:05)
[2020-08-13] MEDS: Gabapentin 400 MG Cap PO SCH ×3 (08:05→19:28)
[2020-08-13 08:40] LABS: CHLORIDE,CL 110 mmol/L (98-107); SODIUM,NA 145 mmol/L (136-145)
[2020-08-13 08:41] LABS: ANION GAP 13.5 mmol/L (10-20)
--- NOTE | 2020-08-13 09:36 | CR ---
[id number] RAD/RAD Chest PA or AP 1V EXAM: SINGLE VIEW CHEST. INDICATION: PNEUMONIA COMPARISON: CORRELATION IS MADE WITH AUGUST 11, 2020 FINDINGS: Left-sided infiltrates are slightly increased The right lung is overall clear IMPRESSION: SLIGHT WORSENING SINCE LAST EXAM Robson Carolina MD 08/13/20 0912 Thank you for allowing us to participate in the care of your patient.
[2020-08-13] MEDS: Albuterol/Ipratropium 3.0-0.5 MG/3 ML Neb Soln NEB SCH ×4 (09:50→19:29)
--- NOTE | 2020-08-13 09:55 | PN ---
Progress Note for SHON POZO Date: 08/13/2020 Room #: VM.203 SUBJECTIVE: This is the patient's 3rd hospital day. He is improving neurologically with being more mentally alert. He has been still coughing. Cough syrup did not really help much. He did have a drop in blood pressure last evening, but he did respond to a fluid bolus. OBJECTIVE: Vital Signs: His temperature is 36.6, pulse 70, blood pressure is 129/75, respiratory rate is 20, sats are 95% on 2 L. General: The patient is sitting, alert, smiling in his bed as he is getting a bed bath. Heart: Regular rate and rhythm. Lungs: Have diminished breath sounds in bases. Abdomen: Soft. Urine is more clear yellow in color. Neurologic: The patient is fairly nonspeaking, is confused. Does move all extremities. LABORATORY DATA: Shows his MRSA screen was negative. Blood cultures are negative so far. White blood cell count stable at 7.3, hemoglobin 12.5, platelets are 255. Sodium is 145, potassium 3.5, creatinine 1.1, GFR greater than 60. CRP is improved to 20.3. Chest x-ray does reveal left lower lobe infiltrate. IMPRESSION: 1. Sepsis. 2. Community-acquired pneumonia. 3. Lethargy, improved. 4. Schizophrenia. PLAN: We will continue same IV antibiotics and same IV fluids. We will order neb treatments to help improve pulmonary function and will repeat lab work tomorrow on the patient. GM08/13/2020 09:05:32 MODL: 08/13/2020 09:49:15 /[id number]
[2020-08-13] MEDS: Sodium Chloride 0.9% 10 ML Syringe FLUSH PRN (12:19)
[2020-08-13] MEDS ORDERED: Metoprolol Tartrate 5 MG/5 ML SDV IVPUSH ONE (13:58)
[2020-08-13] MEDS: traZODone 50 MG Tab PO SCH (19:28)
[2020-08-13] MEDS: QUEtiapine 100 MG Tab PO SCH (19:28)
[2020-08-13] MEDS: OLANZapine 10 MG Tab PO SCH (19:50)
[2020-08-14] MEDS: Piperacillin/Tazobactam 3.375 GM in Sodium Chloride 0.9% 100 ML IV SCH ×2 (04:55→12:25)
[2020-08-14] MEDS: Levothyroxine 100 MCG Tab PO SCH (06:13)
[2020-08-14] MEDS: Omeprazole 20 MG Cap.CR PO SCH (06:13)
[2020-08-14] MEDS: Albuterol/Ipratropium 3.0-0.5 MG/3 ML Neb Soln NEB SCH (07:21)
[2020-08-14 07:22] LABS: CHLORIDE,CL 110 mmol/L (98-107); SODIUM,NA 145 mmol/L (136-145)
[2020-08-14 07:23] LABS: ANION GAP 12.6 mmol/L (10-20)
[2020-08-14] MEDS: Lactated Ringers 1,000 ML IV SCH (08:51)
[2020-08-14] MEDS: ClonazePAM 0.5 MG Tab PO SCH ×2 (08:53→20:04)
[2020-08-14] MEDS: Gabapentin 400 MG Cap PO SCH ×3 (08:54→20:05)
[2020-08-14] MEDS: Enoxaparin 40 MG/0.4 ML Syringe SUBCUT SCH (08:58)
[2020-08-14] MEDS: guaiFENesin 100 MG/5 ML Soln 10 ML UD Cup PO PRN (08:58)
--- NOTE | 2020-08-14 09:10 | PCM.PN ---
- General Info Date of Service: 08/14/20 Subjective Update: 74 yo male hospital day #4 admitted with delirium secondary to community acquired pneumonia that had not responded to outpatient treatment. He is unable to answer questions due to severe underlying dementia at baseline. Does seem in good spirits today per nursing. Nursing staff deny any concerns at this point. He is drinking/eating some but they are not sure it is enough to maintain hydration without IV fluids. - Review of Systems Systems Review Comment:: unable to assess due to severe dementia - Patient Data Vitals - Most Recent: Last Vital Signs Temp 36.3 C 08/14/20 05:57 Pulse 61 08/14/20 05:57 Resp 20 08/14/20 05:57 BP 135/81 08/14/20 05:57 Pulse Ox 93 L 08/14/20 07:22 Weight - Most Recent: 77.111 kg I&O - Last 24 Hours: Intake & Output 08/13/20 08/14/20 08/14/20 22:59 06:59 14:59 Intake Total 480 907 0 Output Total 850 700 Balance -370 207 0 Lab Results Last 24 Hours: Laboratory Results - last 24 hr 08/14/20 08/14/20 Range/Units 06:32 06:32 WBC 5.1 (4.0-10.0) x10^3/uL RBC 4.12 L (4.5-6.0) x10^6/uL Hgb 11.7 L (14.0-18.0) g/dL Hct 37.1 L (40.0-52.0) % MCV 90.0 (78.0-93.0) fL MCH 28.4 (26.0-32.0) pg MCHC 31.5 L (32.0-36.0) g/dL RDW Coeff of El 15.0 (10.0-15.0) % Plt Count 239 (130-400) x10^3/uL Add Manual Diff Yes Neutrophils % (Manual) 62 (50-80) % Band Neutrophils % 1 (0-6) % Lymphocytes % (Manual) 33 (25-50) % Monocytes % (Manual) 3 (2-11) % Metamyelocytes % 1 H (0) % Toxic Granulation Moderate Platelet Estimate Adequate Anisocytosis Rare Sodium 145 (136-145) mmol/L Potassium 3.6 (3.5-5.1) mmol/L Chloride 110 H (98-107) mmol/L Carbon Dioxide 26 (21-32) mmol/L Anion Gap 12.6 (10-20) mmol/L BUN 8 (7-18) mg/dL Creatinine 1.0 (0.70-1.30) mg/dL Est Cr Clr Drug Dosing 64.89 mL/min Estimated GFR (MDRD) > 60 Glucose 89 (74-106) mg/dL Calcium 7.9 L (8.5-10.1) mg/dL Corrected Calcium 9.58 (8.5-10.1) mg/dL Total Bilirubin 0.5 (0.2-1.0) mg/dL AST 39 H (15-37) U/L ALT 26 (16-63) U/L Alkaline Phosphatase 103 (46-116) U/L C-Reactive Protein 9.0 H (<=0.9) mg/dL Total Protein 5.8 L (6.4-8.2) g/dL Albumin 1.9 L (3.4-5.0) g/dL Globulin 3.9 Albumin/Globulin Ratio 0.49 Daniele Results Last 24 Hours: Microbiology 08/11/20 13:16 Aerobic Blood Culture - Preliminary Blood - Venous - Lab Draw NO GROWTH AFTER 2 DAYS Anaerobic Blood Culture - Preliminary NO GROWTH AFTER 2 DAYS 08/11/20 13:15 Aerobic Blood Culture - Preliminary Blood - Venous NO GROWTH AFTER 2 DAYS Anaerobic Blood Culture - Preliminary NO GROWTH AFTER 2 DAYS Med Orders - Current: Current Medications Acetaminophen (Tylenol) 650 mg PO Q4H PRN PRN Reason: Pain OR FEVER Last Admin: 08/12/20 14:32 Dose: 650 mg Documented by: Amoxicillin/Clavulanate Potassium (Augmentin 875 Mg/125 Mg) 1 tab PO BID [facility] Bisacodyl (Dulcolax) 15 mg PO DAILY PRN PRN Reason: Constipation Bisacodyl (Dulcolax) 10 mg RECTAL DAILY PRN PRN Reason: Constipation Clonazepam (Klonopin) 1 mg PO BID [facility] Last Admin: 08/14/20 08:53 Dose: 1 mg Documented by: Enoxaparin Sodium (Lovenox) 40 mg SUBCUT DAILY [facility] Last Admin: 08/14/20 08:58 Dose: 40 mg Documented by: Gabapentin (Neurontin) 800 mg PO TID [facility] Last Admin: 08/14/20 08:54 Dose: 800 mg Documented by: Guaifenesin (Robitussin) 200 mg PO Q4H PRN PRN Reason: Cough Last Admin: 08/14/20 08:58 Dose: 200 mg Documented by: Piperacillin Sod/Tazobactam (Sod 3.375 gm/ Sodium Chloride) 100 mls @ 25 mls/hr IV Q8H [facility] Stop: 08/14/20 16:00 Last Admin: 08/14/20 04:55 Dose: 25 mls/hr Documented by: Levothyroxine Sodium (Synthroid) 100 mcg PO ACBREAKFAST [facility] Last Admin: 08/14/20 06:13 Dose: 100 mcg Documented by: Olanzapine (Zyprexa) 10 mg PO BEDTIME [facility] Last Admin: 08/13/20 19:50 Dose: 10 mg Documented by: Omeprazole (Omeprazole) 20 mg PO DAILY@0700 [facility] Last Admin: 08/14/20 06:13 Dose: 20 mg Documented by: Quetiapine Fumarate (Seroquel) 200 mg PO BEDTIME [facility] Last Admin: 08/13/20 19:28 Dose: 200 mg Documented by: Senna/Docusate Sodium (Senna Plus) 1 tab PO BID [facility] Last Admin: 08/14/20 08:59 Dose: Not Given Documented by: Sodium Chloride (Saline Flush) 10 ml FLUSH ASDIRECTED PRN PRN Reason: Keep Vein Open Last Admin: 08/13/20 12:19 Dose: 10 ml Documented by: Trazodone HCl (Trazodone) 100 mg PO BEDTIME [facility] Last Admin: 08/13/20 19:28 Dose: 100 mg Documented by: Discontinued Medications Albuterol/Ipratropium (Duoneb 3.0-0.5 Mg/3 Ml) 3 ml NEB QID [facility] Last Admin: 08/13/20 12:19 Dose: 3 ml Documented by: Albuterol/Ipratropium (Duoneb 3.0-0.5 Mg/3 Ml) 3 ml NEB QIDRT [facility] Last Admin: 08/14/20 07:21 Dose: 3 ml Documented by: Sodium Chloride (Normal Saline) 1,000 mls @ 999 mls/hr IV ONETIME ONE Stop: 08/11/20 14:01 Last Admin: 08/11/20 13:36 Dose: 999 mls/hr Documented by: Cefepime HCl 1 gm/ Sodium (Chloride) 100 mls @ 200 mls/hr IV STAT ONE Stop: 08/11/20 13:35 Last Admin: 08/11/20 13:37 Dose: 200 mls/hr Documented by: Piperacillin Sod/Tazobactam (Sod 3.375 gm/ Sodium Chloride) 100 mls @ 200 mls/hr IV STAT ONE Stop: 08/11/20 13:35 Last Admin: 08/11/20 13:36 Dose: 200 mls/hr Documented by: Lactated Ringer's (Ringers, Lactated) 1,000 mls @ 150 mls/hr IV ASDIRECTED [facility] Last Admin: 08/13/20 11:10 Dose: 150 mls/hr Documented by: Lactated Ringer's (Ringers, Lactated) 1,000 mls @ 75 mls/hr IV ASDIRECTED [facility] Last Admin: 08/14/20 08:51 Dose: 75 mls/hr Documented by: - Exam General: Alert (resting in bed but alerts to voice), No Acute Distress HEENT: Mucous Membr. Moist/[place] Neck: Supple, Trachea Midline, No Thyromegaly. No: Lymphadenopathy Lungs: Normal Respiratory Effort, Crackles (L>R lower lung mi) Cardiovascular: Regular Rate, Regular Rhythm, No Murmurs GI/Abdominal Exam: Normal Bowel Sounds, Soft, Non-Tender, No Organomegaly, No Distention, No Mass Extremities: No Pedal Edema, Normal Capillary Refill Peripheral Pulses: 2+: Radial (L), Radial (R) Skin: Warm, Dry, Intact Neurological: No New Focal Deficit Psy/Mental Status: Alert, Normal Affect, Normal Mood Sepsis Event Note - Evaluation Sepsis Screening Result: No Definite Risk - Focused Exam Vital Signs: Vital Signs Temp Pulse Resp BP Pulse Ox Pulse Ox 08/14/20 07:22 93 L 08/14/20 05:57 36.3 C 61 20 135/81 98 08/14/20 02:00 36.4 C 65 18 109/60 97 08/13/20 22:00 36.6 C 67 18 103/62 95 - Problem List & Annotations (1) Delirium SNOMED Code(s): 3286219 Code(s): R41.0 - DISORIENTATION, UNSPECIFIED Status: Acute Current Visit: Yes (2) Pneumonia SNOMED Code(s): 413883176 Code(s): J18.9 - PNEUMONIA, UNSPECIFIED ORGANISM Status: Acute Current Visit: Yes Qualifiers: Pneumonia type: due to unspecified organism Laterality: bilateral Lung location: unspecified part of lung Qualified Code(s): J18.9 - Pneumonia, unspecified organism (3) Dehydration SNOMED Code(s): 80524110 Code(s): E86.0 - DEHYDRATION Status: Acute Current Visit: Yes (4) Acute on chronic renal failure SNOMED Code(s): 440577546 Code(s): N17.9 - ACUTE KIDNEY FAILURE, UNSPECIFIED; N18.9 - CHRONIC KIDNEY DISEASE, UNSPECIFIED Status: Acute Current Visit: Yes Qualifiers: Acute renal failure type: unspecified Chronic kidney disease stage: stage 3 (moderate) Chronic kidney disease stage 3 subtype: unspecified whether 3a or 3b Qualified Code(s): N17.9 - Acute kidney failure, unspecified; N18.30 - Chronic kidney disease, stage 3 unspecified (5) Hypothyroidism SNOMED Code(s): 90361886 Code(s): E03.9 - HYPOTHYROIDISM, UNSPECIFIED Status: Chronic Current Visit: Yes Qualifiers: Hypothyroidism type: acquired Qualified Code(s): E03.9 - Hypothyroidism, unspecified (6) Constipation SNOMED Code(s): 52319470 Code(s): K59.00 - CONSTIPATION, UNSPECIFIED Status: Chronic Current Visit: No Qualifiers: Constipation type: unspecified constipation type Qualified Code(s): K59.00 - Constipation, unspecified (7) Hypercholesterolemia SNOMED Code(s): 47903996 Code(s): E78.00 - PURE HYPERCHOLESTEROLEMIA, UNSPECIFIED Status: Chronic Current Visit: No (8) Osteoporosis SNOMED Code(s): 05630800 Code(s): M81.0 - AGE-RELATED OSTEOPOROSIS W/O CURRENT PATHOLOGICAL FRACTURE Status: Chronic Current Visit: No Qualifiers: Osteoporosis type: age-related Presence of current pathological fracture: without current pathological fracture Qualified Code(s): M81.0 - Age-related osteoporosis without current pathological fracture (9) Schizophrenia SNOMED Code(s): 74659055 Code(s): F20.9 - SCHIZOPHRENIA, UNSPECIFIED Status: Chronic Current Visit: No Qualifiers: Schizophrenia type: unspecified Qualified Code(s): F20.9 - Schizophrenia, unspecified (10) Seizure SNOMED Code(s): 06609528 Code(s): R56.9 - UNSPECIFIED CONVULSIONS Status: Chronic Current Visit: No (11) TBI (traumatic brain injury) SNOMED Code(s): 914303415 Code(s): S06.9X9A - UNSP INTRACRANIAL INJURY W LOC OF UNSP DURATION, INIT Status: Chronic Current Visit: No Qualifiers: Encounter type: sequela Loss of consciousness presence/duration: with LOC of unspecified duration Qualified Code(s): S06.9X9S - Unspecified intracranial injury with loss of consciousness of unspecified duration, sequela - Problem List Review Problem List Initiated/Reviewed/Updated: Yes - My Orders Last 24 Hours: My Active Orders 08/14/20 07:42 Dietary Supplements [RC] ACBED 08/14/20 09:04 Dietary Supplements [RC] BIDMEALS 08/14/20 20:00 Amoxicillin/Clavulanate K [Augmentin 875 MG/125 MG] 1 tab PO BID - Assessment Assessment:: 74 yo male hospital day #4 admitted for delirium secondary to community acquired pneumonia. Is steadily improving clinically and as per labs. - Plan Plan:: #1 Delirium - Still not back to his usual self but significant improvement noted from admit. - Presumed to be secondary to CAP +/- contribution from polypharmacy. - See plans as noted below. - No indication for further work-up since he is improving. #2 Community acquired pneumonia - Sepsis listed on progress notes over the weekend but he never truly met sepsis criteria. - Has improved on zosyn. Will do 1 more dose of zosyn at mid-day today and then switch to augmentin this evening. - Continue supplemental oxygen to maintain saturations >90%. Will wean as able. - Nebs d/c'd as he has no history of COPD/asthma and has not been wheezing. #3 Dehydration, resolved #4 Acute on chronic renal failure, resolved - Will d/c fluids today. - He will be encouraged to eat/drink ad juan. - Recheck labs tomorrow am. #5 Hypothyroidism #6 Constipation #7 Hyperlipidemia #8 Osteoporosis #9 Schizophrenia #10 Seizure disorder #11 Traumatic brain injury - Doing well on his current medication regimen. - Therefore, will continue as ordered. Patient will be remain on acute today - will plan to d/c fluids and see how he eats/drinks as well as to transition to oral antibiotics later on today. If this goes well, will plan for d/c back to the care center tomorrow. Code status is full - discussed with POA on admission. Lovenox for VTE prophylaxis.
[2020-08-14] MEDS: Amoxicillin/Clavulanate K 875-125 MG Tab PO SCH (20:04)
[2020-08-14] MEDS: OLANZapine 10 MG Tab PO SCH (20:05)
[2020-08-14] MEDS: traZODone 50 MG Tab PO SCH (20:05)
[2020-08-14] MEDS: QUEtiapine 100 MG Tab PO SCH (20:05)
[2020-08-15] MEDS: Omeprazole 20 MG Cap.CR PO SCH (06:43)
[2020-08-15] MEDS: Levothyroxine 100 MCG Tab PO SCH (06:43)
[2020-08-15 07:31] LABS: CHLORIDE,CL 106 mmol/L (98-107); SODIUM,NA 143 mmol/L (136-145)
[2020-08-15 07:37] LABS: ANION GAP 11.5 mmol/L (10-20)
--- NOTE | 2020-08-15 08:12 | PCM.DCSUM1 ---
Discharge Summary - Hospital Course Brief History: Mr. Knowles is a 74 yo male who was admitted for delirium secondary to community acquired pneumonia after failing outpatient treatment for the same. - Discharge Data Discharge Date: 08/15/20 Discharge Disposition: DC/Tfer to SNF 03 Condition: Good - Referral to Home Health Primary Care Physician: Pooja Paz MD - Discharge Diagnosis/Problem(s) (1) Delirium SNOMED Code(s): 3206615 ICD Code: R41.0 - DISORIENTATION, UNSPECIFIED Status: Acute Current Visit: Yes (2) Pneumonia SNOMED Code(s): 241670162 ICD Code: J18.9 - PNEUMONIA, UNSPECIFIED ORGANISM Status: Acute Current Visit: Yes Qualifiers: Pneumonia type: due to unspecified organism Laterality: bilateral Lung location: unspecified part of lung Qualified Code(s): J18.9 - Pneumonia, unspecified organism (3) Dehydration SNOMED Code(s): 64432846 ICD Code: E86.0 - DEHYDRATION Status: Acute Current Visit: Yes (4) Acute on chronic renal failure SNOMED Code(s): 438455069 ICD Code: N17.9 - ACUTE KIDNEY FAILURE, UNSPECIFIED; N18.9 - CHRONIC KIDNEY DISEASE, UNSPECIFIED Status: Acute Current Visit: Yes Qualifiers: Acute renal failure type: unspecified Chronic kidney disease stage: stage 3 (moderate) Chronic kidney disease stage 3 subtype: unspecified whether 3a or 3b Qualified Code(s): N17.9 - Acute kidney failure, unspecified; N18.30 - Chronic kidney disease, stage 3 unspecified (5) Hypothyroidism SNOMED Code(s): 95395548 ICD Code: E03.9 - HYPOTHYROIDISM, UNSPECIFIED Status: Chronic Current Visit: Yes Qualifiers: Hypothyroidism type: acquired Qualified Code(s): E03.9 - Hypothyroidism, unspecified (6) Constipation SNOMED Code(s): 68890646 ICD Code: K59.00 - CONSTIPATION, UNSPECIFIED Status: Chronic Current Visit: No Qualifiers: Constipation type: unspecified constipation type Qualified Code(s): K59.00 - Constipation, unspecified (7) Hypercholesterolemia SNOMED Code(s): 02428312 ICD Code: E78.00 - PURE HYPERCHOLESTEROLEMIA, UNSPECIFIED Status: Chronic Current Visit: No (8) Osteoporosis SNOMED Code(s): 16365215 ICD Code: M81.0 - AGE-RELATED OSTEOPOROSIS W/O CURRENT PATHOLOGICAL FRACTURE Status: Chronic Current Visit: No Qualifiers: Osteoporosis type: age-related Presence of current pathological fracture: without current pathological fracture Qualified Code(s): M81.0 - Age-related osteoporosis without current pathological fracture (9) Schizophrenia SNOMED Code(s): 20224964 ICD Code: F20.9 - SCHIZOPHRENIA, UNSPECIFIED Status: Chronic Current Visit: No Qualifiers: Schizophrenia type: unspecified Qualified Code(s): F20.9 - Schizophrenia, u nspecified (10) Seizure SNOMED Code(s): 11813809 ICD Code: R56.9 - UNSPECIFIED CONVULSIONS Status: Chronic Current Visit: No (11) TBI (traumatic brain injury) SNOMED Code(s): 501991126 ICD Code: S06.9X9A - UNSP INTRACRANIAL INJURY W LOC OF UNSP DURATION, INIT Status: Chronic Current Visit: No Qualifiers: Encounter type: sequela Loss of consciousness presence/duration: with LOC of unspecified duration Qualified Code(s): S06.9X9S - Unspecified intracranial injury with loss of consciousness of unspecified duration, sequela - Patient Summary/Data Operative Procedure(s) Performed: none Complications: none Consults: none Labs Pending at D/C: none Recommended Follow-up Testing/Procedures: none Planned Operative Procedure(s) after DC: none Hospital Course: The patient was admitted and given IV fluids as well as zosyn. His psychiatric medication doses were also decreased significantly and reduced to bedtime dosing only. He progressively improved each day in terms of his mentation and oral intake. He has not had a fever since admit. Overnight hospital day #2-#3, he did have an episode of hypotension that improved with an IV fluid bolus. His IV fluids were discontinued yesterday am and he has been eating and drinking well since then. He was also transitioned to oral antibiotics last evening without any issue. He is near his baseline mental status today and is felt stable for d/c back to the care center. He will complete a 7 day course of antibiotics with augmentin. He will remain on the lower doses of his psychiatric medications with plans to adjust these as indicated. - Patient Instructions Diet: Usual Diet as Tolerated Activity: As Tolerated - Discharge Plan *PRESCRIPTION DRUG MONITORING PROGRAM REVIEWED*: No *COPY OF PRESCRIPTION DRUG MONITORING REPORT IN PATIENT WILLIAM: No Prescriptions/Med Rec: Amoxicillin/Clavulanate K [Augmentin 875-125 MG] 1 tab PO BID #5 tablet Home Medications: Home Meds clonazePAM [Klonopin] 1 mg PO BID 10/17/18 [History] traZODone HCl [Trazodone HCl] 150 mg PO BEDTIME 10/18/18 [History] Acetaminophen 650 mg PO Q4H PRN 08/11/20 [History] Bisacodyl [Gentle Laxative] 10 mg RC DAILY PRN 08/11/20 [History] Calcium Carb, Citrate/Vit D3 [Calcium + D3 ER Tablet] 1 each PO BID 08/11/20 [History] Cyanocobalamin (Vitamin B-12) [B-12] 1,000 mcg PO DAILY 08/11/20 [History] Docusate Sodium/Sennosides [Senna Plus] 1 each PO BID 08/11/20 [History] Ferrous Sulfate 325 mg PO MOWEFR 08/11/20 [History] Gabapentin [Neurontin] 800 mg PO TID 08/11/20 [History] Levothyroxine [Synthroid] 100 mcg PO ACBREAKFAST 08/11/20 [History] Omeprazole 20 mg PO DAILY 08/11/20 [History] bisacodyL [Dulcolax] 15 mg PO DAILY PRN 08/11/20 [History] polyethylene glycoL 3350 [MiraLAX] 17 gm PO BID 08/11/20 [History] Amoxicillin/Clavulanate K [Augmentin 875-125 MG] 1 tab PO BID #5 tablet 08/15/20 [Rx] OLANZapine [ZyPREXA] 10 mg PO BEDTIME tablet 08/15/20 [Rx] QUEtiapine [SEROquel] 200 mg PO BEDTIME tablet 08/15/20 [Rx] Referrals: Pooja Paz MD [Primary Care Provider] - - Discharge Summary/Plan Comment DC Time >30 min.: No - General Info Date of Service: 08/15/20 Subjective Update: 74 yo male hospital day #5 admitted with delirium secondary to community acquired pneumonia. He is alert this morning. He does talk but in nonsensical speech. No overnight events per nursing. - Review of Systems Systems Review Comment: unable to assess due to nonsensical speech in the setting of severe dementia - Patient Data Vitals - Most Recent: Last Vital Signs Temp 36.2 C 08/15/20 06:00 Pulse 75 08/15/20 06:00 Resp 18 08/15/20 06:00 BP 121/71 08/15/20 06:00 Pulse Ox 96 08/15/20 06:00 Weight - Most Recent: 77.111 kg I&O - Last 24 hours: Intake & Output 08/14/20 08/15/20 08/15/20 22:59 06:59 14:59 Intake Total 360 Output Total 1000 1400 Balance -640 -1400 Lab Results - Last 24 hrs: Laboratory Results - last 24 hr 08/15/20 08/15/20 Range/Units 06:37 06:37 WBC 8.2 (4.0-10.0) x10^3/uL RBC 4.37 L (4.5-6.0) x10^6/uL Hgb 12.6 L (14.0-18.0) g/dL Hct 38.3 L (40.0-52.0) % MCV 87.6 (78.0-93.0) fL MCH 28.8 (26.0-32.0) pg MCHC 32.9 (32.0-36.0) g/dL RDW Coeff of El 14.5 (10.0-15.0) % Plt Count 252 (130-400) x10^3/uL Neut % (Auto) 78.2 (50.0-80.0) % Lymph % (Auto) 13.6 L (25.0-50.0) % [place] % (Auto) 8.1 (2.0-11.0) % Eos % (Auto) 0.0 (0.0-4.0) % Baso % (Auto) 0.1 L (0.2-1.2) % Sodium 143 (136-145) mmol/L Potassium 3.5 (3.5-5.1) mmol/L Chloride 106 (98-107) mmol/L Carbon Dioxide 29 (21-32) mmol/L Anion Gap 11.5 (10-20) mmol/L BUN 7 (7-18) mg/dL Creatinine 0.8 (0.70-1.30) mg/dL Est Cr Clr Drug Dosing 81.11 mL/min Estimated GFR (MDRD) > 60 Glucose 89 (74-106) mg/dL Calcium 7.9 L (8.5-10.1) mg/dL HUSSAIN Results - Last 24 hrs: Microbiology 08/11/20 13:16 Aerobic Blood Culture - Preliminary Blood - Venous - Lab Draw NO GROWTH AFTER 3 DAYS Anaerobic Blood Culture - Preliminary NO GROWTH AFTER 3 DAYS 08/11/20 13:15 Aerobic Blood Culture - Preliminary Blood - Venous NO GROWTH AFTER 3 DAYS Anaerobic Blood Culture - Preliminary NO GROWTH AFTER 3 DAYS Med Orders - Current: Current Medications Acetaminophen (Tylenol) 650 mg PO Q4H PRN PRN Reason: Pain OR FEVER Last Admin: 08/12/20 14:32 Dose: 650 mg Documented by: Amoxicillin/Clavulanate Potassium (Augmentin 875 Mg/125 Mg) 1 tab PO BID [facility] Stop: 08/17/20 20:01 Last Admin: 08/14/20 20:04 Dose: 1 tab Documented by: Bisacodyl (Dulcolax) 15 mg PO DAILY PRN PRN Reason: Constipation Bisacodyl (Dulcolax) 10 mg RECTAL DAILY PRN PRN Reason: Constipation Clonazepam (Klonopin) 1 mg PO BID [facility] Last Admin: 08/14/20 20:04 Dose: 1 mg Documented by: Enoxaparin Sodium (Lovenox) 40 mg SUBCUT DAILY [facility] Last Admin: 08/14/20 08:58 Dose: 40 mg Documented by: Gabapentin (Neurontin) 800 mg PO TID [facility] Last Admin: 08/14/20 20:05 Dose: 800 mg Documented by: Guaifenesin (Robitussin) 200 mg PO Q4H PRN PRN Reason: Cough Last Admin: 08/14/20 08:58 Dose: 200 mg Documented by: Levothyroxine Sodium (Synthroid) 100 mcg PO ACBREAKFAST [facility] Last Admin: 08/15/20 06:43 Dose: 100 mcg Documented by: Olanzapine (Zyprexa) 10 mg PO BEDTIME [facility] Last Admin: 08/14/20 20:05 Dose: 10 mg Documented by: Omeprazole (Omeprazole) 20 mg PO DAILY@0700 [facility] Last Admin: 08/15/20 06:43 Dose: 20 mg Documented by: Quetiapine Fumarate (Seroquel) 200 mg PO BEDTIME [facility] Last Admin: 08/14/20 20:05 Dose: 200 mg Documented by: Senna/Docusate Sodium (Senna Plus) 1 tab PO BID [facility] Last Admin: 08/14/20 20:06 Dose: Not Given Documented by: Sodium Chloride (Saline Flush) 10 ml FLUSH ASDIRECTED PRN PRN Reason: Keep Vein Open Last Admin: 08/13/20 12:19 Dose: 10 ml Documented by: Trazodone HCl (Trazodone) 100 mg PO BEDTIME [facility] Last Admin: 08/14/20 20:05 Dose: 100 mg Documented by: Discontinued Medications Albuterol/Ipratropium (Duoneb 3.0-0.5 Mg/3 Ml) 3 ml NEB QID [facility] Last Admin: 08/13/20 12:19 Dose: 3 ml Documented by: Albuterol/Ipratropium (Duoneb 3.0-0.5 Mg/3 Ml) 3 ml NEB QIDRT [facility] Last Admin: 08/14/20 07:21 Dose: 3 ml Documented by: Sodium Chloride (Normal Saline) 1,000 mls @ 999 mls/hr IV ONETIME ONE Stop: 08/11/20 14:01 Last Admin: 08/11/20 13:36 Dose: 999 mls/hr Documented by: Cefepime HCl 1 gm/ Sodium (Chloride) 100 mls @ 200 mls/hr IV STAT ONE Stop: 08/11/20 13:35 Last Admin: 08/11/20 13:37 Dose: 200 mls/hr Documented by: Piperacillin Sod/Tazobactam (Sod 3.375 gm/ Sodium Chloride) 100 mls @ 200 mls/hr IV STAT ONE Stop: 08/11/20 13:35 Last Admin: 08/11/20 13:36 Dose: 200 mls/hr Documented by: Lactated Ringer's (Ringers, Lactated) 1,000 mls @ 150 mls/hr IV ASDIRECTED [facility] Last Admin: 08/13/20 11:10 Dose: 150 mls/hr Documented by: Piperacillin Sod/Tazobactam (Sod 3.375 gm/ Sodium Chloride) 100 mls @ 25 mls/hr IV Q8H [facility] Stop: 08/14/20 15:59 Last Admin: 08/14/20 12:25 Dose: 25 mls/hr Documented by: Lactated Ringer's (Ringers, Lactated) 1,000 mls @ 75 mls/hr IV ASDIRECTED [facility] Last Admin: 08/14/20 08:51 Dose: 75 mls/hr Documented by: - Exam General: Reports: Alert, Cooperative, No Acute Distress HEENT: Reports: Mucous Membr. Moist/[place] Neck: Reports: Supple, Trachea Midline, No Thyromegaly. Denies: Lymphadenopathy Lungs: Reports: Clear to Auscultation (but exam limited by patient inability to participate in exam), Normal Respiratory Effort Cardiovascular: Reports: Regular Rate, Regular Rhythm, No Murmurs GI/Abdominal Exam: Normal Bowel Sounds, Soft, Non-Tender, No Organomegaly, No Distention, No Mass Extremities: Non-Tender, No Pedal Edema, Normal Capillary Refill Skin: Reports: Warm, Dry, Intact Neurological: Reports: No New Focal Deficit
[2020-08-15] MEDS: ClonazePAM 0.5 MG Tab PO SCH (08:40)
[2020-08-15] MEDS: Amoxicillin/Clavulanate K 875-125 MG Tab PO SCH (08:40)
[2020-08-15] MEDS: Enoxaparin 40 MG/0.4 ML Syringe SUBCUT SCH (08:40)
[2020-08-15] MEDS: Gabapentin 400 MG Cap PO SCH (08:41)
== END 2020-08-15 10:30 | DRG 871 ==
LOC: VM.ED 12:09 → VM.MS 13:52
PROVIDERS: ADMIT Family Medicine; ATTEND Family Medicine
DX: A41.9 Sepsis, unspecified organism (principal); J18.9 Pneumonia, unspecified organism; N17.9 Acute kidney failure, unspecified; K59.09 Other constipation; R13.10 Dysphagia, unspecified; E86.0 Dehydration; N18.30 Chronic kidney disease, stage 3 unspecified; E03.9 Hypothyroidism, unspecified; K59.00 Constipation, unspecified; E78.00 Pure hypercholesterolemia, unspecified; M81.0 Age-related osteoporosis without current pathological fracture; F20.9 Schizophrenia, unspecified; Z20.828 Contact with and (suspected) exposure to other viral communicable diseases; E78.5 Hyperlipidemia, unspecified; I95.9 Hypotension, unspecified; E53.8 Deficiency of other specified B group vitamins; G40.909 Epilepsy, unspecified, not intractable, without status epilepticus; M19.90 Unspecified osteoarthritis, unspecified site; F03.90 Unspecified dementia, unspecified severity, without behavioral disturbance, psychotic disturbance, mood disturbance, and anxiety; G47.00 Insomnia, unspecified; Z79.899 Other long term (current) drug therapy; Z87.820 Personal history of traumatic brain injury; Z79.890 Hormone replacement therapy; Z86.73 Personal history of transient ischemic attack (TIA), and cerebral infarction without residual deficits
CPT/HCPCS: 36415; 71045; 80053; 83605; 85025; 87040 ×2; 96374; 99284; 99285; J0692; J2543; J7030; J7050 ×2; U0002; 51702; 70450; 80048; 84443; 86140; 94640; 94760; A9270-GY; J1650; J7120; J7620-GY

== ENCOUNTER 2021-09-27 11:17 | Inpatient (IN) | payer MEDICARE, MEDICAID ==
[2021-09-27] MEDS ORDERED: cefTRIAXone 2 GM Vial IVPUSH ONE (12:08)
[2021-09-27 12:27] LABS: CORONAVIRUS COVID-19 NAA NEGATIVE (NEGATIVE)
[2021-09-27 12:28] LABS: RESPIRATORY SYNCYTIAL VIR NAA NEGATIVE (NEGATIVE)
--- NOTE | 2021-09-27 12:42 | CR ---
[id number] RAD/RAD Chest PA or AP 1V EXAM: RAD Chest PA or AP 1V INDICATION: RALES TO LUNGS. COMPARISON: August 13, 2020. DISCUSSION/IMPRESSION: Cardiomediastinal silhouette is unchanged in size and contour compared to the prior examination. Subtle patchy areas of scattered groundglass parenchymal opacification in both lungs. Findings are nonspecific. Correlate for signs of infection to exclude pneumonia, including COVID pneumonia. Darian Meredith MD 09/27/21 1443 Thank you for allowing us to participate in the care of your patient.
[2021-09-27 12:48] LABS: CHLORIDE,CL 111 mmol/L (98-107); SODIUM,NA 148 mmol/L (136-145)
[2021-09-27 12:51] LABS: PCO2 ARTERIAL,POC 33 mmHg (35-48)
[2021-09-27 12:55] LABS: ANION GAP 15.2 mmol/L (5-15)
--- NOTE | 2021-09-27 13:01 | EDM.PDOC ---
ED HPI GENERAL MEDICAL PROBLEM - General Chief Complaint: Neurological Problem Time Seen by Provider: 09/27/21 11:45 Source of Information: Reports: Patient - History of Present Illness INITIAL COMMENTS - FREE TEXT/NARRATIVE: Patient presents via EMS with complaints of reduced level of consciousness, UTI, no urine output. Visited with Dr. Paz regarding possible admission. Baseline for him is oriented x 1 and combative. No longer really responding. Reports of lower right abdominal mass. Has received 3L of iv fluids over the last day with only 100 mL out. Onset: Gradual Duration: Getting Worse - Related Data Allergies Allergy/AdvReac Type Severity Reaction Status Date / Time No Known Allergies Allergy Verified 08/11/20 14:39 Home Meds: Home Meds clonazePAM [Klonopin] 1 mg PO BID 10/17/18 [History] traZODone HCl [Trazodone HCl] 150 mg PO BEDTIME 10/18/18 [History] Acetaminophen 650 mg PO Q4H PRN 08/11/20 [History] Bisacodyl [Gentle Laxative] 10 mg RC DAILY PRN 08/11/20 [History] Calcium Carb, Citrate/Vit D3 [Calcium + D3 ER Tablet] 1 each PO BID 08/11/20 [History] Cyanocobalamin (Vitamin B-12) [B-12] 1,000 mcg PO DAILY 08/11/20 [History] Docusate Sodium/Sennosides [Senna Plus] 1 each PO BID 08/11/20 [History] Ferrous Sulfate 325 mg PO MOWEFR 08/11/20 [History] Gabapentin [Neurontin] 800 mg PO TID 08/11/20 [History] Levothyroxine [Synthroid] 100 mcg PO ACBREAKFAST 08/11/20 [History] Omeprazole 20 mg PO DAILY 08/11/20 [History] bisacodyL [Dulcolax] 15 mg PO DAILY PRN 08/11/20 [History] polyethylene glycoL 3350 [MiraLAX] 17 gm PO BID 08/11/20 [History] Amoxicillin/Clavulanate K [Augmentin 875-125 MG] 1 tab PO BID #5 tablet 08/15/20 [Rx] OLANZapine [ZyPREXA] 10 mg PO BEDTIME tablet 08/15/20 [Rx] QUEtiapine [SEROquel] 200 mg PO BEDTIME tablet 08/15/20 [Rx] Past Medical History HEENT History: Reports: None Cardiovascular History: Reports: High Cholesterol Respiratory History: Reports: None Gastrointestinal History: Reports: Chronic Constipation, Other (See Below) Other Gastrointestinal History: Dysphagia Genitourinary History: Reports: None Musculoskeletal History: Reports: Osteoporosis Neurological History: Reports: Seizure, Other (See Below) Other Neuro History: Epilepsy, Traumatic Brain Injury Psychiatric History: Reports: Dementia, Schizophrenia, Other (See Below) Other Psychiatric History: Insomnia Endocrine/Metabolic History: Reports: Hypothyroidism Hematologic History: Reports: B12 Deficiency Oncologic (Cancer) History: Reports: None Dermatologic History: Reports: None Social & Family History - Family History Family Medical History: Unobtainable (patient unable to answer and nothing list ed in EMR) - Living Situation & Occupation Living situation: Reports: Extended Care Facility Occupation: Disabled ED ROS GENERAL - Review of Systems Review Of Systems: Unable To Obtain Reason Not Obtained: not responsive or cooperative Constitutional: Reports: Fever, Weakness HEENT: Reports: No Symptoms Respiratory: Reports: No Symptoms Cardiovascular: Reports: No Symptoms Endocrine: Reports: No Symptoms GI/Abdominal: Reports: Other (possible mass RLQ) : Reports: Other Musculoskeletal: Reports: No Symptoms Skin: Reports: No Symptoms Neurological: Reports: Confusion Psychiatric: Reports: No Symptoms Hematologic/Lymphatic: Reports: No Symptoms Immunologic: Reports: No Symptoms ED EXAM, NEURO - Physical Exam Exam: See Below Exam Limited By: Altered Mental Status General Appearance: No Apparent Distress, Lethargic Ears: Normal External Exam, Normal Canal, Hearing Grossly Normal, Normal TMs Nose: Normal Inspection, Normal Mucosa, No Blood Throat/Mouth: Normal Inspection, Normal Lips, Normal Teeth, Normal Gums, Normal Oropharynx, Normal Voice, No Airway Compromise Head Exam: Atraumatic, Normocephalic Neck: Normal Inspection, Supple, Non-Tender, Full Range of Motion Respiratory/Chest: No Respiratory Distress, No Accessory Muscle Use, Chest Non- Tender, Crackles Cardiovascular: Normal Peripheral Pulses, Regular Rate, Rhythm, No Edema, No Gallop, No JVD, No Murmur, No Rub GI/Abdominal: Normal Bowel Sounds, Soft, Non-Tender, No Organomegaly, No Distention, No Abnormal Bruit, No Mass Neurological: Alert, Normal Mood/Affect, Normal Dorsiflexion, CN II-XII Intact, Normal Plantar Flexion, Normal Gait, Normal Reflexes, No Motor/Sensory Deficits, Oriented x 3 Back Exam: Normal Inspection, Full Range of Motion, NT Extremities: Normal Inspection, Normal Range of Motion, Non-Tender, No Pedal Edema, Normal Capillary Refill Psychiatric: Normal Affect, Normal Mood Skin Exam: Warm, Dry, Intact, Normal Color, No Rash Course - Orders/Labs/Meds Orders: Active Orders 24 hr Category Date Time Status EKG Documentation Completion [RC] STAT Care 09/27/21 11:59 Ordered Head wo Cont [CT] Stat Exams 09/27/21 11:59 Ordered BLOOD GAS ARTERIAL [BG] Stat Lab 09/27/21 11:59 Ordered CULTURE BLOOD [BC] Stat Lab 09/27/21 12:07 Ordered CULTURE BLOOD [BC] Stat Lab 09/27/21 12:07 Ordered CULTURE URINE [RM] Stat Lab 09/27/21 11:30 Received Blood Culture x2 Reflex Set [OM.PC] Stat Oth 09/27/21 12:07 Ordered Labs: Laboratory Tests 09/27/21 09/27/21 09/27/21 Range/Units 11:30 11:30 11:30 WBC 15.1 H (4.0-10.0) x10^3/uL RBC 4.78 (4.5-6.0) x10^6/uL Hgb 13.5 L (14.0-18.0) g/dL Hct 42.0 (40.0-52.0) % MCV 87.9 (78.0-93.0) fL MCH 28.2 (26.0-32.0) pg MCHC 32.1 (32.0-36.0) g/dL RDW Coeff of El 13.7 (10.0-15.0) % Plt Count 337 (130-400) x10^3/uL Immature Gran % (Auto) 0.50 H (0.00-0.43) % Neut % (Auto) 86.5 H (50.0-80.0) % Lymph % (Auto) 7.1 L (25.0-50.0) % [place] % (Auto) 5.8 (2.0-11.0) % Eos % (Auto) 0.0 (0.0-4.0) % Baso % (Auto) 0.1 L (0.2-1.2) % Neut # (Auto) 13.0 H (1.8-7.7) x10^3/uL Lymph # (Auto) 1.1 (1.0-4.8) x10^3/uL [place] # (Auto) 0.9 H (0.0-0.8) x10^3/uL Eos # (Auto) 0.0 (0.0-0.5) x10^3/uL Baso # (Auto) 0.0 (0.0-0.2) x10^3/uL Immature Gran # (Auto) 0.07 (0.00-0.07) x10^3/uL POC ABG pH (7.35-7.45) pH POC ABG pCO2 (35-48) mmHg POC ABG pO2 (83-108) mmHg POC ABG HCO3 (21-28) mmol/L POC ABG Total CO2 (22-29) mmol/L POC ABG O2 Sat (94-98) % POC ABG Base Excess ((-2)-3) mmol/L POC FiO2 Sodium 148 H (136-145) mmol/L Potassium 4.2 (3.5-5.1) mmol/L Chloride 111 H (98-107) mmol/L Carbon Dioxide 26 (21-32) mmol/L Anion Gap 15.2 H (5-15) mmol/L BUN 54 H D (7-18) mg/dL Creatinine 2.7 H D (0.70-1.30) mg/dL Est Cr Clr Drug Dosing TNP Estimated GFR (MDRD) 23 Glucose 144 H (70-99) mg/dL Lactic Acid (0.4-2.0) mmol/L Calcium 8.7 (8.5-10.1) mg/dL Corrected Calcium 10.4 H (8.5-10.1) mg/dL Magnesium 2.7 H (1.8-2.4) mg/dL Total Bilirubin 0.4 (0.2-1.0) mg/dL AST 42 H (15-37) U/L ALT 26 (16-63) U/L Alkaline Phosphatase 112 (46-116) U/L C-Reactive Protein 31.9 H (<=0.9) mg/dL Total Protein 6.9 (6.4-8.2) g/dL Albumin 1.9 L (3.4-5.0) g/dL Globulin 5.0 Albumin/Globulin Ratio 0.38 Urine Color Brown H (YELLOW) Urine Appearance Cloudy H (CLEAR) Urine pH 5.5 (5.0-8.0) Ur Specific [place] 1.020 Urine Protein 30 H (NEGATIVE) mg/dL Urine Glucose (UA) Negative (NEGATIVE) mg/dL Urine Ketones Negative (NEGATIVE) mg/dL Urine Occult Blood Large H (NEGATIVE) Urine Nitrite Negative (NEGATIVE) Urine Bilirubin Small H (NEGATIVE) Urine Urobilinogen 1.0 (0.2) EU/dL Ur Leukocyte Esterase Trace H (NEGATIVE) Urine RBC >100 H (NOT SEEN) /HPF Urine WBC 5-10 H (NOT SEEN) /HPF Ur Squamous Epith Cells Not seen (NOT SEEN) /HPF Urine Bacteria Moderate H (NOT SEEN) /HPF Urine Mucus Few H (NOT SEEN) /LPF Influenza Type A RNA (NEGATIVE) RSV RNA (INAAT) (NEGATIVE) Influenza Type B RNA (NEGATIVE) SARS-CoV-2 RNA (WILIAM) (NEGATIVE) 09/27/21 09/27/21 09/27/21 Range/Units 11:30 11:35 12:47 WBC (4.0-10.0) x10^3/uL RBC (4.5-6.0) x10^6/uL Hgb (14.0-18.0) g/dL Hct (40.0-52.0) % MCV (78.0-93.0) fL MCH (26.0-32.0) pg MCHC (32.0-36.0) g/dL RDW Coeff of El (10.0-15.0) % Plt Count (130-400) x10^3/uL Immature Gran % (Auto) (0.00-0.43) % Neut % (Auto) (50.0-80.0) % Lymph % (Auto) (25.0-50.0) % [place] % (Auto) (2.0-11.0) % Eos % (Auto) (0.0-4.0) % Baso % (Auto) (0.2-1.2) % Neut # (Auto) (1.8-7.7) x10^3/uL Lymph # (Auto) (1.0-4.8) x10^3/uL [place] # (Auto) (0.0-0.8) x10^3/uL Eos # (Auto) (0.0-0.5) x10^3/uL Baso # (Auto) (0.0-0.2) x10^3/uL Immature Gran # (Auto) (0.00-0.07) x10^3/uL POC ABG pH 7.47 H (7.35-7.45) pH POC ABG pCO2 33 L (35-48) mmHg POC ABG pO2 54 L* (83-108) mmHg POC ABG HCO3 23.6 (21-28) mmol/L POC ABG Total CO2 24.2 (22-29) mmol/L POC ABG O2 Sat 90.1 L (94-98) % POC ABG Base Excess 0 ((-2)-3) mmol/L POC FiO2 28 Sodium (136-145) mmol/L Potassium (3.5-5.1) mmol/L Chloride (98-107) mmol/L Carbon Dioxide (21-32) mmol/L Anion Gap (5-15) mmol/L BUN (7-18) mg/dL Creatinine (0.70-1.30) mg/dL Est Cr Clr Drug Dosing Estimated GFR (MDRD) Glucose (70-99) mg/dL Lactic Acid 1.7 (0.4-2.0) mmol/L Calcium (8.5-10.1) mg/dL Corrected Calcium (8.5-10.1) mg/dL Magnesium (1.8-2.4) mg/dL Total Bilirubin (0.2-1.0) mg/dL AST (15-37) U/L ALT (16-63) U/L Alkaline Phosphatase (46-116) U/L C-Reactive Protein (<=0.9) mg/dL Total Protein (6.4-8.2) g/dL Albumin (3.4-5.0) g/dL Globulin Albumin/Globulin Ratio Urine Color (YELLOW) Urine Appearance (CLEAR) Urine pH (5.0-8.0) Ur Specific [place] Urine Protein (NEGATIVE) mg/dL Urine Glucose (UA) (NEGATIVE) mg/dL Urine Ketones (NEGATIVE) mg/dL Urine Occult Blood (NEGATIVE) Urine Nitrite (NEGATIVE) Urine Bilirubin (NEGATIVE) Urine Urobilinogen (0.2) EU/dL Ur Leukocyte Esterase (NEGATIVE) Urine RBC (NOT SEEN) /HPF Urine WBC (NOT SEEN) /HPF Ur Squamous Epith Cells (NOT SEEN) /HPF Urine Bacteria (NOT SEEN) /HPF Urine Mucus (NOT SEEN) /LPF Influenza Type A RNA Negative (NEGATIVE) RSV RNA (INAAT) Negative (NEGATIVE) Influenza Type B RNA Negative (NEGATIVE) SARS-CoV-2 RNA (WILIAM) Negative (NEGATIVE) Meds: Medications Discontinued Medications Generic Name Dose Route Start Last Admin Trade Name Freq PRN Reason Stop Dose Admin Ceftriaxone Sodium 2 gm 09/27/21 12:08 09/27/21 12:26 Ceftriaxone 2 Gm Vial IVPUSH 09/27/21 12:09 2 gm STAT ONE Administration Departure - Discharge Information Referrals: Pooja Paz MD [Primary Care Provider] - Forms: ED Department Discharge - My Orders Last 24 Hours: My Active Orders 09/27/21 11:30 CULTURE URINE [RM] Stat 09/27/21 11:59 EKG Documentation Completion [RC] STAT Head wo Cont [CT] Stat BLOOD GAS ARTERIAL [BG] Stat 09/27/21 12:07 CULTURE BLOOD [BC] Stat CULTURE BLOOD [BC] Stat Blood Culture x2 Reflex Set [OM.PC] Stat - Assessment/Plan Last 24 Hours: My Active Orders 09/27/21 11:30 CULTURE URINE [RM] Stat 09/27/21 11:59 EKG Documentation Completion [RC] STAT Head wo Cont [CT] Stat BLOOD GAS ARTERIAL [BG] Stat 09/27/21 12:07 CULTURE BLOOD [BC] Stat CULTURE BLOOD [BC] Stat Blood Culture x2 Reflex Set [OM.PC] Stat
--- NOTE | 2021-09-27 13:22 | CT ---
[id number] CT/CT Head WO IV EXAM: CT Head WO IV CLINICAL DATA: RALES TO LUNGS COMPARISON STUDY: August 11, 2020. FINDINGS: No intracranial hemorrhage, extra-axial fluid collection, mass, or acute ischemia. Generalized parenchymal atrophy with scattered areas of nonspecific white matter disease, commonly seen as sequela of chronic microvascular ischemia. Soft tissues are unremarkable. Paranasal sinuses and mastoid air cells are clear. IMPRESSION: No acute intracranial findings. Sonido Bales DO 09/27/21 0559 Thank you for allowing us to participate in the care of your patient.
--- NOTE | 2021-09-27 13:40 | PCM.HP.2 ---
H&P History of Present Illness - General Date of Service: 09/27/21 Admit Problem/Dx: Admission Diagnosis/Problem Admission Diagnosis/Problem Urosepsis Source of Information: Provider, RN History Limitations: Reports: Altered Mental Status - History of Present Illness Initial Comments - Free Text/Narative: Mr. Knowles is a 75 yo male with PMH of severe dementia from which he is non- verbal at baseline, schizophrenia, TBI, seizure disorder, B12 deficiency, hypothyroidism, constipation, CKD, lumbar spine DDD, and osteoporosis who was brought to the ER from SNF for evaluation due to low urine output despite receiving IV fluids over the past 2 days. Patient is non-verbal so history is obtained from caregivers and what I already know about him. He was seen at the SNF 2 days ago for evaluation of increased fatigue, decreased oral intake, and an overall change in behavior. He has not been febrile or really had any infection symptoms. He was started on ceftriaxone for a UTI and given IV fluids. He has not improved despite 2 days of antibiotics and fluids, and his urine o utput had remained very low. Notably, the ER placed a new catheter upon arrival with return of nearly 2000 mL of urine. He has been more alert at times throughout the past 2 days and his vitals have been stable. He really has not woken up to eat or drink much at all. - Related Data Allergies/Adverse Reactions: Allergies Allergy/AdvReac Type Severity Reaction Status Date / Time No Known Allergies Allergy Verified 09/27/21 13:51 Home Medications: Home Meds clonazePAM [Klonopin] 1 mg PO BID 10/17/18 [History] traZODone HCl [Trazodone HCl] 100 mg PO BEDTIME 10/18/18 [History] Calcium Carb, Citrate/Vit D3 [Calcium + D3 ER Tablet] 1 tab PO BID 08/11/20 [History] Cyanocobalamin (Vitamin B-12) [B-12] 1,000 mcg PO DAILY 08/11/20 [History] Docusate Sodium/Sennosides [Senna Plus] 1 tab PO BID 08/11/20 [History] Ferrous Sulfate 325 mg PO MOWEFR@0800 08/11/20 [History] Gabapentin [Neurontin] 800 mg PO TID 08/11/20 [History] Levothyroxine [Synthroid] 100 mcg PO ACBREAKFAST 08/11/20 [History] Omeprazole 20 mg PO DAILY 08/11/20 [History] bisacodyL [Dulcolax] 15 mg PO DAILY PRN 08/11/20 [History] polyethylene glycoL 3350 [MiraLAX] 17 gm PO BID 08/11/20 [History] QUEtiapine [SEROquel] 200 mg PO BEDTIME tablet 08/15/20 [Rx] OLANZapine [ZyPREXA] 10 mg PO BID 09/27/21 [History] Past Medical History HEENT History: Reports: None Cardiovascular History: Reports: High Cholesterol Respiratory History: Reports: None Gastrointestinal History: Reports: Chronic Constipation, Other (See Below) Other Gastrointestinal History: Dysphagia Genitourinary History: Reports: None Musculoskeletal History: Reports: Osteoporosis Neurological History: Reports: Seizure, Other (See Below) Other Neuro History: Epilepsy, Traumatic Brain Injury Psychiatric History: Reports: Dementia, Schizophrenia, Other (See Below) Other Psychiatric History: Insomnia Endocrine/Metabolic History: Reports: Hypothyroidism Hematologic History: Reports: B12 Deficiency Oncologic (Cancer) History: Reports: None Dermatologic History: Reports: None Social & Family History - Family History Family Medical History: Unobtainable (patient unable to answer and nothing listed in EMR) - Tobacco Use Tobacco Use Status *Q: Never Tobacco User - Alcohol Use Alcohol Use History: No Alcohol Use in Last Twelve Months: No - Recreational Drug Use Recreational Drug Use: No - Living Situation & Occupation Living situation: Reports: Extended Care Facility Occupation: Disabled H&P Review of Systems - Review of Systems: Review Of Systems: Unable To Obtain Reason Not Obtained: nonverbal at baseline Exam - Exam Exam: See Below - Exam General: Other (resting in bed in no acute distress; does not awake to voice; does awake to touch) HEENT: Conjunctiva Clear, Mucosa Moist & Caspar, Posterior Pharynx Clear, Pupils Equal, Pupils Reactive, TMs Clear Neck: Supple, Trachea Midline. No: Lymphadenopathy, Thyromegaly Lungs: Normal Respiratory Effort, Crackles (both lower lungs) Cardiovascular: Regular Rate, Regular Rhythm, Normal S1, Normal S2 GI/Abdominal Exam: Normal Bowel Sounds, Soft, Non-Tender, No Organomegaly, No Distention, No Mass Extremities: Normal Inspection, Normal Range of Motion, Non-Tender, No Pedal Edema, Normal Capillary Refill Peripheral Pulses: 2+: Radial (L), Radial (R) Skin: Warm, Dry, Intact Neurological: Other (tone equal bilaterally; no obvious facial droop or other neurologic symptoms) - Patient Data Lab Results Last 24 hrs: Laboratory Results - last 24 hr 09/27/21 09/27/21 09/27/21 Range/Units 11:30 11:30 11:30 WBC 15.1 H (4.0-10.0) x10^3/uL RBC 4.78 (4.5-6.0) x10^6/uL Hgb 13.5 L (14.0-18.0) g/dL Hct 42.0 (40.0-52.0) % MCV 87.9 (78.0-93.0) fL MCH 28.2 (26.0-32.0) pg MCHC 32.1 (32.0-36.0) g/dL RDW Coeff of El 13.7 (10.0-15.0) % Plt Count 337 (130-400) x10^3/uL Immature Gran % (Auto) 0.50 H (0.00-0.43) % Neut % (Auto) 86.5 H (50.0-80.0) % Lymph % (Auto) 7.1 L (25.0-50.0) % [place] % (Auto) 5.8 (2.0-11.0) % Eos % (Auto) 0.0 (0.0-4.0) % Baso % (Auto) 0.1 L (0.2-1.2) % Neut # (Auto) 13.0 H (1.8-7.7) x10^3/uL Lymph # (Auto) 1.1 (1.0-4.8) x10^3/uL [place] # (Auto) 0.9 H (0.0-0.8) x10^3/uL Eos # (Auto) 0.0 (0.0-0.5) x10^3/uL Baso # (Auto) 0.0 (0.0-0.2) x10^3/uL Immature Gran # (Auto) 0.07 (0.00-0.07) x10^3/uL POC ABG pH (7.35-7.45) pH POC ABG pCO2 (35-48) mmHg POC ABG pO2 (83-108) mmHg POC ABG HCO3 (21-28) mmol/L POC ABG Total CO2 (22-29) mmol/L POC ABG O2 Sat (94-98) % POC ABG Base Excess ((-2)-3) mmol/L POC FiO2 POC Blood Gas Comment Sodium 148 H (136-145) mmol/L Potassium 4.2 (3.5-5.1) mmol/L Chloride 111 H (98-107) mmol/L Carbon Dioxide 26 (21-32) mmol/L Anion Gap 15.2 H (5-15) mmol/L BUN 54 H D (7-18) mg/dL Creatinine 2.7 H D (0.70-1.30) mg/dL Est Cr Clr Drug Dosing TNP Estimated GFR (MDRD) 23 Glucose 144 H (70-99) mg/dL Lactic Acid (0.4-2.0) mmol/L Calcium 8.7 (8.5-10.1) mg/dL Corrected Calcium 10.4 H (8.5-10.1) mg/dL Magnesium 2.7 H (1.8-2.4) mg/dL Total Bilirubin 0.4 (0.2-1.0) mg/dL AST 42 H (15-37) U/L ALT 26 (16-63) U/L Alkaline Phosphatase 112 (46-116) U/L C-Reactive Protein 31.9 H (<=0.9) mg/dL Total Protein 6.9 (6.4-8.2) g/dL Albumin 1.9 L (3.4-5.0) g/dL Globulin 5.0 Albumin/Globulin Ratio 0.38 Urine Color Brown H (YELLOW) Urine Appearance Cloudy H (CLEAR) Urine pH 5.5 (5.0-8.0) Ur Specific Roy 1.020 Urine Protein 30 H (NEGATIVE) mg/dL Urine Glucose (UA) Negative (NEGATIVE) mg/dL Urine Ketones Negative (NEGATIVE) mg/dL Urine Occult Blood Large H (NEGATIVE) Urine Nitrite Negative (NEGATIVE) Urine Bilirubin Small H (NEGATIVE) Urine Urobilinogen 1.0 (0.2) EU/dL Ur Leukocyte Esterase Trace H (NEGATIVE) Urine RBC >100 H (NOT SEEN) /HPF Urine WBC 5-10 H (NOT SEEN) /HPF Ur Squamous Epith Cells Not seen (NOT SEEN) /HPF Urine Bacteria Moderate H (NOT SEEN) /HPF Urine Mucus Few H (NOT SEEN) /LPF Influenza Type A RNA (NEGATIVE) RSV RNA (INAAT) (NEGATIVE) Influenza Type B RNA (NEGATIVE) SARS-CoV-2 RNA (WILIAM) (NEGATIVE) 09/27/21 09/27/21 09/27/21 Range/Units 11:30 11:35 12:47 WBC (4.0-10.0) x10^3/uL RBC (4.5-6.0) x10^6/uL Hgb (14.0-18.0) g/dL Hct (40.0-52.0) % MCV (78.0-93.0) fL MCH (26.0-32.0) pg MCHC (32.0-36.0) g/dL RDW Coeff of El (10.0-15.0) % Plt Count (130-400) x10^3/uL Immature Gran % (Auto) (0.00-0.43) % Neut % (Auto) (50.0-80.0) % Lymph % (Auto) (25.0-50.0) % [place] % (Auto) (2.0-11.0) % Eos % (Auto) (0.0-4.0) % Baso % (Auto) (0.2-1.2) % Neut # (Auto) (1.8-7.7) x10^3/uL Lymph # (Auto) (1.0-4.8) x10^3/uL [place] # (Auto) (0.0-0.8) x10^3/uL Eos # (Auto) (0.0-0.5) x10^3/uL Baso # (Auto) (0.0-0.2) x10^3/uL Immature Gran # (Auto) (0.00-0.07) x10^3/uL POC ABG pH 7.47 H (7.35-7.45) pH POC ABG pCO2 33 L (35-48) mmHg POC ABG pO2 54 L* (83-108) mmHg POC ABG HCO3 23.6 (21-28) mmol/L POC ABG Total CO2 24.2 (22-29) mmol/L POC ABG O2 Sat 90.1 L (94-98) % POC ABG Base Excess 0 ((-2)-3) mmol/L POC FiO2 28 POC Blood Gas Comment Called critical res Sodium (136-145) mmol/L Potassium (3.5-5.1) mmol/L Chloride (98-107) mmol/L Carbon Dioxide (21-32) mmol/L Anion Gap (5-15) mmol/L BUN (7-18) mg/dL Creatinine (0.70-1.30) mg/dL Est Cr Clr Drug Dosing Estimated GFR (MDRD) Glucose (70-99) mg/dL Lactic Acid 1.7 (0.4-2.0) mmol/L Calcium (8.5-10.1) mg/dL Corrected Calcium (8.5-10.1) mg/dL Magnesium (1.8-2.4) mg/dL Total Bilirubin (0.2-1.0) mg/dL AST (15-37) U/L ALT (16-63) U/L Alkaline Phosphatase (46-116) U/L C-Reactive Protein (<=0.9) mg/dL Total Protein (6.4-8.2) g/dL Albumin (3.4-5.0) g/dL Globulin Albumin/Globulin Ratio Urine Color (YELLOW) Urine Appearance (CLEAR) Urine pH (5.0-8.0) Ur Specific Roy Urine Protein (NEGATIVE) mg/dL Urine Glucose (UA) (NEGATIVE) mg/dL Urine Ketones (NEGATIVE) mg/dL Urine Occult Blood (NEGATIVE) Urine Nitrite (NEGATIVE) Urine Bilirubin (NEGATIVE) Urine Urobilinogen (0.2) EU/dL Ur Leukocyte Esterase (NEGATIVE) Urine RBC (NOT SEEN) /HPF Urine WBC (NOT SEEN) /HPF Ur Squamous Epith Cells (NOT SEEN) /HPF Urine Bacteria (NOT SEEN) /HPF Urine Mucus (NOT SEEN) /LPF Influenza Type A RNA Negative (NEGATIVE) RSV RNA (INAAT) Negative (NEGATIVE) Influenza Type B RNA Negative (NEGATIVE) SARS-CoV-2 RNA (WILIAM) Negative (NEGATIVE) Result Diagrams: 09/27/21 11:30 09/27/21 11:30 - Problem List (1) Sepsis, unspecified organism SNOMED Code(s): 22930267 ICD Code: A41.9 - SEPSIS, UNSPECIFIED ORGANISM Status: Acute Current Visit: No Qualifiers: Sepsis type: sepsis due to unspecified organism Qualified Code(s): A41.9 - Sepsis, unspecified organism (2) UTI (urinary tract infection) SNOMED Code(s): 60228225 ICD Code: N39.0 - URINARY TRACT INFECTION, SITE NOT SPECIFIED Status: Acute Current Visit: Yes Qualifiers: Urinary tract infection type: site unspecified Hematuria presence: with hematuria Qualified Code(s): N39.0 - Urinary tract infection, site not specified; R31.9 - Hematuria, unspecified (3) Pneumonia SNOMED Code(s): 747102341 ICD Code: J18.9 - PNEUMONIA, UNSPECIFIED ORGANISM Status: Acute Current Visit: No Qualifiers: Pneumonia type: due to unspecified organism Laterality: bilateral Lung location: unspecified part of lung Qualified Code(s): J18.9 - Pneumonia, unspecified organism (4) Delirium SNOMED Code(s): 9845380 ICD Code: R41.0 - DISORIENTATION, UNSPECIFIED Status: Acute Current Visit: No (5) Acute on chronic renal failure SNOMED Code(s): 431576861 ICD Code: N17.9 - ACUTE KIDNEY FAILURE, UNSPECIFIED; N18.9 - CHRONIC KIDNEY DISEASE, UNSPECIFIED Status: Acute Current Visit: No Qualifiers: Acute renal failure type: unspecified Chronic kidney disease stage: stage 3 (moderate) Chronic kidney disease stage 3 subtype: unspecified whether 3a or 3b Qualified Code(s): N17.9 - Acute kidney failure, unspecified; N18.30 - Chronic kidney disease, stage 3 unspecified (6) Dehydration SNOMED Code(s): 48206338 ICD Code: E86.0 - DEHYDRATION Status: Acute Current Visit: No (7) B12 deficiency SNOMED Code(s): 556041605 ICD Code: E53.8 - DEFICIENCY OF OTHER SPECIFIED B GROUP VITAMINS Status: Chronic Current Visit: Yes (8) Constipation SNOMED Code(s): 57264768 ICD Code: K59.00 - CONSTIPATION, UNSPECIFIED Status: Chronic Current Visit: No Qualifiers: Constipation type: unspecified constipation type Qualified Code(s): K59.00 - Constipation, unspecified (9) Hypothyroidism SNOMED Code(s): 51796262 ICD Code: E03.9 - HYPOTHYROIDISM, UNSPECIFIED Status: Chronic Current V isit: No Qualifiers: Hypothyroidism type: acquired Qualified Code(s): E03.9 - Hypothyroidism, unspecified (10) Osteoporosis SNOMED Code(s): 88602731 ICD Code: M81.0 - AGE-RELATED OSTEOPOROSIS W/O CURRENT PATHOLOGICAL FRACTURE Status: Chronic Current Visit: No Qualifiers: Osteoporosis type: age-related Presence of current pathological fracture: without current pathological fracture Qualified Code(s): M81.0 - Age-related osteoporosis without current pathological fracture (11) Schizophrenia SNOMED Code(s): 45306223 ICD Code: F20.9 - SCHIZOPHRENIA, UNSPECIFIED Status: Chronic Current Visit: No Qualifiers: Schizophrenia type: unspecified Qualified Code(s): F20.9 - Schizophrenia, unspecified (12) Seizure SNOMED Code(s): 77894421 ICD Code: R56.9 - UNSPECIFIED CONVULSIONS Status: Chronic Current Visit: No (13) TBI (traumatic brain injury) SNOMED Code(s): 603436066 ICD Code: S06.9X9A - UNSP INTRACRANIAL INJURY W LOC OF UNSP DURATION, INIT Status: Chronic Current Visit: No Qualifiers: Encounter type: sequela Loss of consciousness presence/duration: with LOC of unspecified duration Qualified Code(s): S06.9X9S - Unspecified intracranial injury with loss of consciousness of unspecified duration, sequela Problem List Initiated/Reviewed/Updated: Yes Orders Last 24hrs: Active Orders 24 hr Category Date Time Status Patient Status [ADT] Routine ADT 09/27/21 13:04 Active Dietary Supplements [RC] BIDMEALS Care 09/27/21 13:29 Active EKG Documentation Completion [RC] STAT Care 09/27/21 11:59 Active Notify Provider Vital Signs [RC] ASDIRECTED Care 09/27/21 13:28 Active Oxygen Therapy [RC] PRN Care 09/27/21 13:27 Active Up With Assistance [RC] ASDIRECTED Care 09/27/21 13:27 Active VTE/DVT Education [RC] PER UNIT ROUTINE Care 09/27/21 13:27 Active Vital Signs [RC] Q4H Care 09/27/21 13:27 Active Regular Diet [DIET] Diet 09/27/21 Dinner Active BASIC METABOLIC PANEL,BMP [CHEM] Routine Lab 09/28/21 05:11 Ordered C-REACTIVE PROTEIN [CHEM] Routine Lab 09/28/21 05:11 Ordered CBC WITH AUTO DIFF [HEME] Routine Lab 09/28/21 05:11 Ordered CULTURE BLOOD [BC] Stat Lab 09/27/21 11:39 Received CULTURE BLOOD [BC] Stat Lab 09/27/21 12:25 Received CULTURE URINE [RM] Stat Lab 09/27/21 11:30 Received Heparin Sodium Med 09/27/21 13:30 Ordered 5,000 units SUBCUT Q8H Sodium Chloride 0.9% [Normal Saline] 1,000 ml Med 09/27/21 13:30 Ordered IV ASDIRECTED cefTRIAXone [Rocephin] Med 09/28/21 08:00 Ordered 2 gm IVPUSH DAILY Blood Culture x2 Reflex Set [OM.PC] Stat Oth 09/27/21 12:07 Ordered Resuscitation Status Routine Resus Stat 09/27/21 13:27 Ordered Medication Orders Ceftriaxone Sodium (Ceftriaxone 2 Gm Vial) 2 gm IVPUSH DAILY BREE Heparin Sodium (Porcine) (Heparin Sodium 5,000 Units/Ml Vial) 5,000 units SUBCUT Q8H BREE Sodium Chloride (Normal Saline) 1,000 mls @ 100 mls/hr IV ASDIRECTED BREE Assessment/Plan Comment:: 75 yo male admitted with sepsis secondary to UTI and pneumonia after presenting to the ER for decreased urine output despite outpatient treatment with antibiotics and fluids at the SNF for the past 2 days. #1 Sepsis, secondary to #2 and #3 #2 UTI #3 Pneumonia - Meets sepsis criteria with tachycardia and leukocytosis. - Lactic acid normal. - Blood cultures pending. - Vitals stable. Will give gentle IV repletion for below issues. Can bolus PRN for hypotension. - Unlikely that the ceftriaxone is not going to be effective; more likely just needs more time and other therapies. - Will continue ceftriaxone and add azithromycin. Could broaden to zosyn if he is not improving. - Recheck labs in the am. #4 Delirium - Presumed to be related to above. Rest of labs show mild hypernatremia, which likely would not explain his level of lethargy. CT head ok. Not likely to be status epilepticus given periods of alertness. - Will monitor for improvement with above treatments and pursue further ev aluation if he is not responding as expected. #5 Acute on chronic renal failure #6 Iatrogenic urinary retention #7 Dehydration - GREG likely related to dehydration as well as obstruction. - Catheter in place and draining well. Will continue for the next 24 hours for close I/O monitoring. - IV fluids at 100 cc/hr. - Recheck labs in the am. #8 B12 deficiency #9 Constipation #10 Hypothyroidism #11 Osteoporosis #12 Schizophrenia #13 Seizures #14 h/o TBI - Continue home medications as he is able to swallow. Patient will be admitted to acute - anticipate he will end up staying through the holiday weekend due to living location is SNF. Code status is full - discussed with guardians on admission. Lovenox for VTE prophylaxis. - Mortality Measure Prognosis:: Poor (patient has impaired functional status at baseline)
[2021-09-27] MEDS: Sodium Chloride 0.9% 1,000 ML IV SCH (15:28)
[2021-09-27] MEDS: Gabapentin 400 MG Cap PO SCH ×2 (17:02→21:26)
[2021-09-27] MEDS: Azithromycin 500 MG in Sodium Chloride 0.9% 250 ML IV SCH (17:06)
[2021-09-27] MEDS: OLANZapine 10 MG Tab PO SCH (21:26)
[2021-09-27] MEDS: Polyethylene Glycol 3350 Powder 17 GM Packet PO SCH (21:26)
[2021-09-27] MEDS: traZODone 50 MG Tab PO SCH (21:26)
[2021-09-27] MEDS: ClonazePAM 0.5 MG Tab PO SCH (21:26)
[2021-09-27] MEDS: QUEtiapine 100 MG Tab PO SCH (21:26)
[2021-09-27] MEDS: Heparin Sodium 5,000 Units/ML Vial SUBCUT SCH (21:28)
[2021-09-28] MEDS: Sodium Chloride 0.9% 1,000 ML IV SCH (01:58)
[2021-09-28] MEDS: Levothyroxine 100 MCG Tab PO SCH (06:48)
[2021-09-28] MEDS ORDERED: cefTRIAXone 2 GM Vial IVPUSH SCH (08:00)
[2021-09-28 08:50] LABS: CHLORIDE,CL 115 mmol/L (98-107); SODIUM,NA 154 mmol/L (136-145)
[2021-09-28 09:06] LABS: ANION GAP 14.8 mmol/L (5-15)
[2021-09-28] MEDS ORDERED: Flumazenil 0.1 MG/ML 5 ML MDV IVPUSH PRN (09:26)
[2021-09-28] MEDS ORDERED: LORazepam 2 MG/ML SDV IVPUSH PRN (09:27)
--- NOTE | 2021-09-28 10:30 | PN ---
Progress Note for SHON POZO Date: 09/28/2021 Room #: VM.201 SUBJECTIVE: This is hospital day #2 on a 75-year-old with severe dementia who is nonverbal and underlying schizophrenia, traumatic brain disorder, seizure disorder, and multiple other medical comorbidities who was having increased lethargy at the [facility] over the past several days. In fact, he received 3 L of fluid over there and had already been getting IV Rocephin for UTI. He had a Key in place, but unfortunately it was found to not be draining well which was the cause of his low urine output, and when he arrived in the ER, a catheter was put in and he had 200 mL of urine. He had low-grade temp on arrival of 100, but has not had any fever since. He has not been able to take any of his psychotropic medications. He is not overly agitated, but he does have a history of seizure disorder. He has not had any seizure activity. This morning, a tray was left in his room and he did drink his juice per the aides, but not under supervision. There was some cereal across his chest. He did then fail a swallow study by nursing and they did not even feel comfortable giving him his oral medications. OBJECTIVE: General: I did hear him coughing from the hallway, and then when I came in, he was in no distress, resting comfortably. He did try to open his eyes to verbal commands, but his eyes were almost matted shut and his mouth was very dry. Heart: Regular rate and rhythm. S1, S2 without murmur. Lungs: Sounds are decreased throughout. He has rhonchi noted, especially in both bases. Abdomen: Nondistended. Positive bowel sounds. Soft, nontender. Extremities: Warm, dry. He just has trace edema to that left ankle and foot, but extremities are warm. He has bilateral heel ulcers that appear old. They are not open. They are scabbed over. Mental Status: He is completely disoriented. He is nonverbal. Vital Signs: Did show a temperature of 97.7, pulse 76, blood pressure 98/62, respiratory rate 20, and O2 of 94% on room air. DIAGNOSTIC DATA: Lab work did show him to have a white count down to 10.5, hemoglobin 12.2, platelets 274. PH on admission 7.47, CO2 of 33, PO2 of 54. He has remained on just the 2 L. Sodium up to 154, potassium 3.8, chloride 115, bicarb 28, BUN 36, creatinine 1.1, glucose 102, calcium 8.5. CRP up from 31.9 to 34.5. Influenza, COVID testing all negative. UA still showed greater than 100 rbc's yesterday and 5 to 10 wbc's. ASSESSMENT: 1. Zznie-ba-dmdnxut renal failure due to volume depletion, dehydration, post obstructive uropathy. Creatinine has returned to normal at 1. 2. Sepsis secondary to urinary tract infection and pneumonia. Clinically improving. Infections are being treated. We will continue with the same antibiotics. Day #2 of Zithromax and Rocephin. 3. Hypernatremia, likely due to some postobstructive diuresis and poor oral intake. We will try to get him drinking some free water and change him over to half-normal saline 175 mL/h. Repeat lab work tomorrow. 4. Urinary tract infection. No culture results available, but clinically improving on Rocephin. 5. Pneumonia. There is concern for possible aspiration given his poor swallowing. For now, we will continue the current antibiotics as he is clinically improving. 6. Severe dementia and underlying schizophrenia. We will continue supportive cares. 7. History of seizure disorder. Because he is unable to take his benzodiazepines, I will give him IV Ativan to prevent seizures. Hopefully, he is awake and alert enough later today to take some Neurontin. 8. Hypothyroidism. We will check a TSH with next labs. 9. Deep venous thrombosis prophylaxis. Now that renal function has improved, I will switch him over to Lovenox daily. 10.History of traumatic brain injury. 11.Delirium related to acute medical illness and underlying dementia. PLAN: The patient will continue on acute cares. We will switch over his IV fluids. We will continue IV antibiotics with Rocephin and Zithromax as he is not reliably taking p.o. medications. I will update his sister who is his power- of-supervisor mending, contact center associate later today to further discuss code status as his condition continues to remain guarded. He remains a code level 1. We will also continue his catheter for strict in's and out's and also due to the obstructive uropathy at this time. MKA: 09/28/2021 09:44:19 MODL: 09/28/2021 10:21:43 /[id number] MTDD
[2021-09-28] MEDS: Enoxaparin 40 MG/0.4 ML Syringe SUBCUT SCH (11:15)
[2021-09-28] MEDS: LORazepam 2 MG/ML SDV IVPUSH SCH ×2 (11:16→21:50)
[2021-09-28] MEDS: Sodium Chloride 0.45% 1,000 ML IV SCH ×2 (11:30→23:51)
[2021-09-28] MEDS: ClonazePAM 0.5 MG Tab PO SCH ×2 (11:30→21:50)
[2021-09-28] MEDS: OLANZapine 10 MG Tab PO SCH ×2 (11:34→21:50)
[2021-09-28] MEDS: Omeprazole 20 MG Cap.CR PO SCH (11:35)
[2021-09-28] MEDS: Gabapentin 400 MG Cap PO SCH ×3 (11:35→21:50)
[2021-09-28] MEDS: Polyethylene Glycol 3350 Powder 17 GM Packet PO SCH ×2 (11:35→21:50)
[2021-09-28] MEDS: Heparin Sodium 5,000 Units/ML Vial SUBCUT SCH (11:36)
--- NOTE | 2021-09-28 16:09 | PCM.SN.2 ---
- Free Text/Narrative Note: Discussed with Cousin Zari and she will talk with her sister they are co guardians. Discussed overall case and she was wondering about culture but not done in clinic and hospital no growth in the end due to likely aspiration pneumonia and doing well in 08/18 I did switch Rocephin over to Zosyn but will continue Zithromax. She is not too keen on doing any tube feeds so I will hold off on any NG and just try to push free water. He has 1 to 1 assist with eating at the care center and the hope is that he will be alert enough to do that on 09/29.
[2021-09-28] MEDS ORDERED: Piperacillin/Tazobactam 4.5 GM in Sodium Chloride 0.9% 100 ML IV ONE (16:15)
[2021-09-28] MEDS: Azithromycin 500 MG in Sodium Chloride 0.9% 250 ML IV SCH (18:13)
[2021-09-28] MEDS: QUEtiapine 100 MG Tab PO SCH (21:50)
[2021-09-28] MEDS: traZODone 50 MG Tab PO SCH (21:50)
[2021-09-29] MEDS: Piperacillin/Tazobactam 3.375 GM in Sodium Chloride 0.9% 100 ML IV SCH ×3 (00:07→17:26)
[2021-09-29] MEDS: Levothyroxine 100 MCG Tab PO SCH (06:08)
[2021-09-29] MEDS: Sodium Chloride 0.45% 1,000 ML IV SCH ×2 (06:52→13:45)
[2021-09-29 08:46] LABS: CHLORIDE,CL 117 mmol/L (98-107); SODIUM,NA 153 mmol/L (136-145)
[2021-09-29 08:49] LABS: ANION GAP 12.5 mmol/L (5-15)
[2021-09-29] MEDS: LORazepam 2 MG/ML SDV IVPUSH SCH ×2 (09:14→20:16)
[2021-09-29] MEDS: Enoxaparin 40 MG/0.4 ML Syringe SUBCUT SCH (09:15)
[2021-09-29] MEDS: ClonazePAM 0.5 MG Tab PO SCH ×2 (10:00→20:29)
[2021-09-29] MEDS: Polyethylene Glycol 3350 Powder 17 GM Packet PO SCH ×2 (10:00→20:29)
[2021-09-29] MEDS: Gabapentin 400 MG Cap PO SCH ×3 (10:01→20:28)
[2021-09-29] MEDS: Omeprazole 20 MG Cap.CR PO SCH (10:01)
[2021-09-29] MEDS: OLANZapine 10 MG Tab PO SCH ×2 (10:02→20:29)
--- NOTE | 2021-09-29 13:00 | PN ---
Progress Note for SHON POZO Date: 09/29/2021 Room #: VM.201 SUBJECTIVE: This is hospital day #3 on a 75-year-old admitted with acute renal failure due to bladder obstruction from a Key and UTI. His urine function did improve, but he had not been able to have any oral intake and his sodium went up to 154. We switched him to half-normal saline. He is still 153 today. He seems to be slightly more alert, but at baseline he has severe dementia and is nonverbal. He is sort of resistive to me trying to listen to his lungs. He opens his eyes to command. He does not appear to be in any pain. He is not coughing this morning as he has not had anything to eat whereas yesterday when he tried to drink stuff, he was coughing. He does not appear short of breath. His O2 sats are up to 99 on 2 L. He is normally not on oxygen. He has been afebrile. We did switch him over to Zosyn yesterday after I discussed with his cousin who is a healthcare decision maker. OBJECTIVE: Vital Signs: His weight is 70 kg, temp 97.1, pulse 83, blood pressure 106/62, respiratory rate 24, O2 of 99% on 2 L. General: He is in no acute distress. Heart: Regular rate and rhythm. S1, S2 without murmur. Lungs: Lung sounds are actually clear to auscultation bilaterally without crackles or wheezes. Abdomen: Positive bowel sounds. Soft, nondistended, nontender. Extremities: Warm and dry. No edema. He does have bilateral heel ulcers which were present on admission. Mental Status: Unable to obtain due to severe dementia. LABORATORY DATA: Lab work today did show his white count 10.2, hemoglobin 11.2, platelets 250. Sodium 153, potassium 3.5, chloride 117, bicarb 27, BUN 25, creatinine 0.9, calcium 8.1, albumin 1.6, TSH 2.3. ASSESSMENT: 1. Acute renal failure due to volume depletion from poor oral intake and urinary obstruction, resolved. 2. Complicated urinary tract infection. Cultures negative. He is on day #2 of Zosyn, previously on Rocephin even prior to admission. He is also on Zithromax for pneumonia. 3. Sepsis secondary to urinary tract infection and pneumonia. 4. Pneumonia, probably aspiration. Should be well-covered by the Zosyn. Plan to complete 5 days of antibiotics. 5. Severe dementia and underlying schizophrenia. He is unable to take his home medications. 6. History of seizure disorder. Unable to take Neurontin. We are giving his benzodiazepines IV. 7. Hypothyroidism, treated. 8. Deep venous thrombosis prophylaxis, on Lovenox. 9. History of traumatic brain injury. 10.Delirium related to acute medical conditions. 11.Hypernatremia. PLAN: The patient will continue on acute cares. We will continue with IV Rocephin to complete a 5-day course due to his poor oral intake. I will continue the IV fluids half-normal saline at 175 an hour as his lungs are clear and he is oxygenating well. He remains a code level 1 until I discuss further with his cousin later today. She was going to try to get a hold of her sister. They were not too interested in pursuing a feeding tube. He would possibly need an NG for some free fluids, but we will hold off on that at this time. MKA: 09/29/2021 12:34:41 MODL: 09/29/2021 12:56:56 /[id number]
[2021-09-29] MEDS: Azithromycin 500 MG in Sodium Chloride 0.9% 250 ML IV SCH (16:12)
[2021-09-29] MEDS: QUEtiapine 100 MG Tab PO SCH (20:29)
[2021-09-29] MEDS: traZODone 50 MG Tab PO SCH (20:29)
[2021-09-30] MEDS: Piperacillin/Tazobactam 3.375 GM in Sodium Chloride 0.9% 100 ML IV SCH ×3 (00:18→17:22)
[2021-09-30] MEDS: Sodium Chloride 0.45% 1,000 ML IV SCH ×2 (00:25→08:38)
[2021-09-30] MEDS: Levothyroxine 100 MCG Tab PO SCH (08:19)
[2021-09-30] MEDS: LORazepam 2 MG/ML SDV IVPUSH SCH ×2 (08:20→19:43)
[2021-09-30] MEDS: Gabapentin 400 MG Cap PO SCH ×3 (08:27→19:40)
[2021-09-30] MEDS: Omeprazole 20 MG Cap.CR PO SCH (08:27)
[2021-09-30] MEDS: Enoxaparin 40 MG/0.4 ML Syringe SUBCUT SCH (08:27)
[2021-09-30] MEDS: Polyethylene Glycol 3350 Powder 17 GM Packet PO SCH ×2 (08:28→19:43)
[2021-09-30] MEDS: ClonazePAM 0.5 MG Tab PO SCH ×2 (08:28→19:42)
[2021-09-30] MEDS: OLANZapine 10 MG Tab PO SCH ×2 (08:28→19:42)
[2021-09-30 08:52] LABS: CHLORIDE,CL 114 mmol/L (98-107); SODIUM,NA 149 mmol/L (136-145)
[2021-09-30 08:53] LABS: ANION GAP 15.2 mmol/L (5-15)
--- NOTE | 2021-09-30 10:02 | PN ---
Progress Note for SHON POZO Date: 09/30/2021 Room #: VM.201 SUBJECTIVE: This is hospital day #4 on a 75-year-old admitted with a UTI and acute renal failure with Key in place due to poor urine output, but it was obstructed. He got several liters of fluid here. He was in acute renal failure that has resolved. Unfortunately, the patient has severe dementia and is verbal only to words that you can understand. He has not been able to eat or drink. He has not been able to safely take pills, therefore, he has had hypernatremia. We have adjusted his IV fluids and that has improved some. I have not heard him coughing like he was when he tried to drink something 2 days ago. He has not had any bowel movements. He is still having good urine output 1.4 L in 24 hours. He has been afebrile. He has been weaned off oxygen just this morning as he was 100% on 1 L. I have not yet updated his cousin since 09/28. She was going to talk with her sister about code status. OBJECTIVE: VITAL SIGNS: His weight is 73.4 kg, temperature 97.5, pulse 87, blood pressure 112/64, respiratory rate 20, and O2 of 94% on room air. GENERAL: He is in no acute distress. He is resting in bed. He appears just mildly agitated but is trying to talk, so it seems he is frustrated that he cannot get his points across. He did answer yes to some questions, but not always appropriately. HEART: Regular rate and rhythm with murmur. LUNGS: Sounds are clear to auscultation bilaterally, just decreased slightly in the left base. ABDOMEN: Has positive bowel sounds. Soft, nondistended, nontender. EXTREMITIES: Warm and dry. He continues to have trace edema over that left leg as compared to the right. MENTAL STATUS: Disoriented. LABORATORY DATA: Laboratory work did show white count down to 9.1, hemoglobin 11.1, platelets 269. Sodium 149, potassium 3.2, chloride 114, bicarb 23, BUN 17, creatinine 0.7, glucose 79, calcium 7.5 but corrected to 9.4. Bilirubin, ALT, AST all normal. Albumin 1.6. MRSA negative for surveillance, and blood and urine cultures here have been no growth. ASSESSMENT AND PLAN: 1. Acute renal failure due to volume depletion from poor oral intake and some urinary obstruction, resolved. 2. Hypokalemia, likely due to poor oral intake. We will change his fluids over to half-normal saline with 20 KCl at 125 an hour. 3. Complicated urinary tract infections. Urine cultures negative. He is on day #3 of Zosyn, previously was on Rocephin for at least 2 days prior to admission. He is on Zithromax and should complete a 5-day course for pneumonia on that tomorrow. 4. Sepsis secondary to urinary tract infection and pneumonia, resolved. 5. Pneumonia, probably aspiration. He should complete 5 days of Zosyn or Augmentin for this. Right now, he will continue IV antibiotics because he cannot reliably take p.o. 6. Severe dementia and underlying schizophrenia, unable to take home medications. 7. History of seizure disorder, unable to take Neurontin. He has been getting scheduled benzodiazepines IV. He did get a p.r.n. dose around midnight last night. This was his first dose. He has not had a seizure activity. 8. Hypothyroidism, treated. 9. Deep venous thrombosis prophylaxis, on Lovenox. 10.History of traumatic brain injury. 11.Delirium related to acute medical conditions. 12.Hypernatremia, improving. We will adjust IV fluids to decrease the rate. 13.Severe malnutrition. We will discuss again with his power of radiologist diagnostic, his cousin, in fact the patient is not able to eat. We would allow him to eat as I had discussed with her for comfort, however, he is not even alert and safe enough to do this and the fact that he is code level 1, but they were not too keen on a feeding tube. Goals of care will need to be continued to discuss with them. PLAN: The patient will continue on acute cares with IV fluid, IV antibiotics, monitoring of electrolytes with a possible [facility] as soon as tomorrow especially if he were to go on like a comfort care. Otherwise, he would need to complete at least a full course of antibiotics here. Dr. Paz to resume care tomorrow. MKA: 09/30/2021 09:10:49 MODL: 09/30/2021 09:58:08 /[id number]
[2021-09-30] MEDS: Sodium Chloride 0.45% with KCl 1,000 ML IV SCH (13:39)
[2021-09-30] MEDS: Azithromycin 500 MG in Sodium Chloride 0.9% 250 ML IV SCH (15:50)
[2021-09-30] MEDS: traZODone 50 MG Tab PO SCH (19:42)
[2021-09-30] MEDS: QUEtiapine 100 MG Tab PO SCH (19:42)
[2021-10-01] MEDS: Piperacillin/Tazobactam 3.375 GM in Sodium Chloride 0.9% 100 ML IV SCH ×4 (00:10→23:09)
[2021-10-01] MEDS: Levothyroxine 100 MCG Tab PO SCH (06:50)
[2021-10-01 07:20] LABS: CHLORIDE,CL 114 mmol/L (98-107); SODIUM,NA 148 mmol/L (136-145)
[2021-10-01 07:21] LABS: ANION GAP 12.4 mmol/L (5-15)
[2021-10-01] MEDS: Enoxaparin 40 MG/0.4 ML Syringe SUBCUT SCH (09:14)
[2021-10-01] MEDS: OLANZapine 10 MG Tab PO SCH (09:15)
[2021-10-01] MEDS: Omeprazole 20 MG Cap.CR PO SCH (09:15)
[2021-10-01] MEDS: Gabapentin 400 MG Cap PO SCH (09:15)
[2021-10-01] MEDS: Polyethylene Glycol 3350 Powder 17 GM Packet PO SCH (09:15)
[2021-10-01] MEDS: ClonazePAM 0.5 MG Tab PO SCH (09:15)
--- NOTE | 2021-10-01 09:15 | PCM.PN ---
- General Info Date of Service: 10/01/21 Subjective Update: 75 yo male hospital day #5 admitted with a UTI and GREG with decreased urine output. Patient is not able to answer questions, even at baseline. Per nursing, no o vernight events. They were able to get his pills in last night with crushing them and putting them in applesauce. He has been doing some soft foods but very little. He has also been drinking very little. Whenever he does eat or drink, he coughs. - Review of Systems Systems Review Comment:: unable to obtain - non-verbal - Patient Data Vitals - Most Recent: Last Vital Signs Temp 37.2 C 10/01/21 06:00 Pulse 85 10/01/21 06:00 Resp 28 H 10/01/21 06:00 BP 111/63 10/01/21 06:00 Pulse Ox 94 L 10/01/21 06:00 Weight - Most Recent: 74.979 kg I&O - Last 24 Hours: Intake & Output 09/30/21 10/01/21 10/01/21 22:59 06:59 14:59 Intake Total 941 1253 Output Total 500 575 Balance 441 678 Lab Results Last 24 Hours: Laboratory Results - last 24 hr 09/30/21 10/01/21 10/01/21 Range/Units 07:51 06:52 06:52 WBC 7.0 (4.0-10.0) x10^3/uL RBC 3.54 L (4.5-6.0) x10^6/uL Hgb 10.0 L (14.0-18.0) g/dL Hct 31.9 L (40.0-52.0) % MCV 90.1 (78.0-93.0) fL MCH 28.2 (26.0-32.0) pg MCHC 31.3 L (32.0-36.0) g/dL RDW Coeff of El 13.5 (10.0-15.0) % Plt Count 255 (130-400) x10^3/uL Immature Gran % (Auto) 0.90 H (0.00-0.43) % Neut % (Auto) 78.9 (50.0-80.0) % Lymph % (Auto) 14.5 L (25.0-50.0) % [place] % (Auto) 5.7 (2.0-11.0) % Eos % (Auto) 0.0 (0.0-4.0) % Baso % (Auto) 0.0 L (0.2-1.2) % Neut # (Auto) 5.5 (1.8-7.7) x10^3/uL Lymph # (Auto) 1.0 (1.0-4.8) x10^3/uL [place] # (Auto) 0.4 (0.0-0.8) x10^3/uL Eos # (Auto) 0.0 (0.0-0.5) x10^3/uL Baso # (Auto) 0.0 (0.0-0.2) x10^3/uL Immature Gran # (Auto) 0.06 (0.00-0.07) x10^3/uL Sodium 148 H (136-145) mmol/L Potassium 3.4 L (3.5-5.1) mmol/L Chloride 114 H (98-107) mmol/L Carbon Dioxide 25 (21-32) mmol/L Anion Gap 12.4 (5-15) mmol/L BUN 12 (7-18) mg/dL Creatinine 0.6 L (0.70-1.30) mg/dL Est Cr Clr Drug Dosing TNP Estimated GFR (MDRD) > 60 Glucose 98 (70-99) mg/dL Calcium 7.2 L (8.5-10.1) mg/dL Magnesium (1.8-2.4) mg/dL C-Reactive Protein 21.7 H (<=0.9) mg/dL 10/01/21 Range/Units 06:52 WBC (4.0-10.0) x10^3/uL RBC (4.5-6.0) x10^6/uL Hgb (14.0-18.0) g/dL Hct (40.0-52.0) % MCV (78.0-93.0) fL MCH (26.0-32.0) pg MCHC (32.0-36.0) g/dL RDW Coeff of El (10.0-15.0) % Plt Count (130-400) x10^3/uL Immature Gran % (Auto) (0.00-0.43) % Neut % (Auto) (50.0-80.0) % Lymph % (Auto) (25.0-50.0) % [place] % (Auto) (2.0-11.0) % Eos % (Auto) (0.0-4.0) % Baso % (Auto) (0.2-1.2) % Neut # (Auto) (1.8-7.7) x10^3/uL Lymph # (Auto) (1.0-4.8) x10^3/uL [place] # (Auto) (0.0-0.8) x10^3/uL Eos # (Auto) (0.0-0.5) x10^3/uL Baso # (Auto) (0.0-0.2) x10^3/uL Immature Gran # (Auto) (0.00-0.07) x10^3/uL Sodium (136-145) mmol/L Potassium (3.5-5.1) mmol/L Chloride (98-107) mmol/L Carbon Dioxide (21-32) mmol/L Anion Gap (5-15) mmol/L BUN (7-18) mg/dL Creatinine (0.70-1.30) mg/dL Est Cr Clr Drug Dosing Estimated GFR (MDRD) Glucose (70-99) mg/dL Calcium (8.5-10.1) mg/dL Magnesium 2.3 (1.8-2.4) mg/dL C-Reactive Protein (<=0.9) mg/dL Daniele Results Last 24 Hours: Microbiology 09/27/21 12:25 Aerobic Blood Culture - Preliminary Blood - Venous - Lab Draw NO GROWTH AFTER 3 DAYS Anaerobic Blood Culture - Preliminary NO GROWTH AFTER 3 DAYS 09/27/21 11:39 Aerobic Blood Culture - Preliminary Blood - Venous NO GROWTH AFTER 3 DAYS Anaerobic Blood Culture - Preliminary NO GROWTH AFTER 3 DAYS Med Orders - Current: Current Medications Clonazepam (Clonazepam 0.5 Mg Tab) 1 mg PO BID [facility] Last Admin: 09/30/21 19:42 Dose: 1 mg Documented by: Enoxaparin Sodium (Enoxaparin 40 Mg/0.4 Ml Syringe) 40 mg SUBCUT Q24H [facility] Last Admin: 09/30/21 08:27 Dose: 40 mg Documented by: Flumazenil (Flumazenil 0.1 Mg/Ml 5 Ml Mdv) 0.2 mg IVPUSH ASDIRECTED PRN PRN Reason: Respiratory Depression Gabapentin (Gabapentin 400 Mg Cap) 800 mg PO TID [facility] Last Admin: 09/30/21 19:40 Dose: 800 mg Documented by: Azithromycin 500 mg/ Sodium (Chloride) 250 mls @ 250 mls/hr IV Q24H [facility] Last Admin: 09/30/21 15:50 Dose: 250 mls/hr Documented by: Piperacillin Sod/Tazobactam (Sod 3.375 gm/ Sodium Chloride) 100 mls @ 25 mls/hr IV Q8H [facility] Last Admin: 10/01/21 08:35 Dose: 25 mls/hr Documented by: Potassium Chloride/Sodium Chloride (1/2 Ns With 20 Meq Kcl) 1,000 mls @ 125 mls/hr IV ASDIRECTED [facility] Last Admin: 09/30/21 13:39 Dose: 125 mls/hr Documented by: Levothyroxine Sodium (Levothyroxine 100 Mcg Tab) 100 mcg PO ACBREAKFAST [facility] Last Admin: 10/01/21 06:50 Dose: Not Given Documented by: Lorazepam (Lorazepam 2 Mg/Ml Sdv) 0.25 mg IVPUSH BID [facility] Last Admin: 09/30/21 19:43 Dose: 0.25 mg Documented by: Lorazepam (Lorazepam 2 Mg/Ml Sdv) 0.5 mg IVPUSH Q4H PRN PRN Reason: Anxiety Last Admin: 09/30/21 00:18 Dose: 0.5 mg Documented by: Olanzapine (Olanzapine 10 Mg Tab) 10 mg PO BID [facility] Last Admin: 09/30/21 19:42 Dose: 10 mg Documented by: Omeprazole (Omeprazole 20 Mg Cap.Cr) 20 mg PO DAILY [facility] Last Admin: 09/30/21 08:27 Dose: Not Given Documented by: Polyethylene Glycol (Polyethylene Glycol 3350 Powder 17 Gm Packet) 17 gm PO BID [facility] Last Admin: 09/30/21 19:43 Dose: Not Given Documented by: Quetiapine Fumarate (Quetiapine 100 Mg Tab) 200 mg PO BEDTIME [facility] Last Admin: 09/30/21 19:42 Dose: 200 mg Documented by: Trazodone HCl (Trazodone 50 Mg Tab) 100 mg PO BEDTIME [facility] Last Admin: 09/30/21 19:42 Dose: 100 mg Documented by: Discontinued Medications Ceftriaxone Sodium (Ceftriaxone 2 Gm Vial) 2 gm IVPUSH STAT ONE Stop: 09/27/21 12:09 Last Admin: 09/27/21 12:26 Dose: 2 gm Documented by: Ceftriaxone Sodium (Ceftriaxone 2 Gm Vial) 2 gm IVPUSH DAILY [facility] Last Admin: 09/28/21 11:08 Dose: 2 gm Documented by: Heparin Sodium (Porcine) (Heparin Sodium 5,000 Units/Ml Vial) 5,000 units SUBCUT Q12H [facility] Last Admin: 09/28/21 11:36 Dose: Not Given Documented by: Sodium Chloride (Normal Saline) 1,000 mls @ 100 mls/hr IV ASDIRECTED [facility] Last Admin: 09/28/21 01:58 Dose: 100 mls/hr Documented by: Sodium Chloride (Sodium Chloride 0.45%) 1,000 mls @ 175 mls/hr IV ASDIRECTED [facility] Last Admin: 09/30/21 08:38 Dose: 175 mls/hr Documented by: Piperacillin Sod/Tazobactam (Sod 4.5 gm/ Sodium Chloride) 100 mls @ 200 mls/hr IV ONETIME ONE Stop: 09/28/21 16:44 Last Admin: 09/28/21 18:13 Dose: 200 mls/hr Documented by: - Exam Urinary Catheter Total Time: 3Days 10Hours General: No Acute Distress, Other (resting quietly in bed; does alert to voice and touch) HEENT: Mucous Membr. Moist/[place] Neck: Supple, Trachea Midline, No Thyromegaly. No: Lymphadenopathy Lungs: Clear to Auscultation, Normal Respiratory Effort Cardiovascular: Regular Rate, Regular Rhythm, No Murmurs GI/Abdominal Exam: Normal Bowel Sounds, Soft, Non-Tender, No Organomegaly, No Distention, No Mass Extremities: Normal Inspection, Non-Tender, No Pedal Edema, Normal Capillary Refill Peripheral Pulses: 2+: Radial (L), Radial (R) Skin: Warm, Dry, Intact Neurological: No New Focal Deficit - Patient Data Lab Results Last 24 hrs: Laboratory Results - last 24 hr 09/30/21 10/01/21 10/01/21 Range/Units 07:51 06:52 06:52 WBC 7.0 (4.0-10.0) x10^3/uL RBC 3.54 L (4.5-6.0) x10^6/uL Hgb 10.0 L (14.0-18.0) g/dL Hct 31.9 L (40.0-52.0) % MCV 90.1 (78.0-93.0) fL MCH 28.2 (26.0-32.0) pg MCHC 31.3 L (32.0-36.0) g/dL RDW Coeff of El 13.5 (10.0-15.0) % Plt Count 255 (130-400) x10^3/uL Immature Gran % (Auto) 0.90 H (0.00-0.43) % Neut % (Auto) 78.9 (50.0-80.0) % Lymph % (Auto) 14.5 L (25.0-50.0) % [place] % (Auto) 5.7 (2.0-11.0) % Eos % (Auto) 0.0 (0.0-4.0) % Baso % (Auto) 0.0 L (0.2-1.2) % Neut # (Auto) 5.5 (1.8-7.7) x10^3/uL Lymph # (Auto) 1.0 (1.0-4.8) x10^3/uL [place] # (Auto) 0.4 (0.0-0.8) x10^3/uL Eos # (Auto) 0.0 (0.0-0.5) x10^3/uL Baso # (Auto) 0.0 (0.0-0.2) x10^3/uL Immature Gran # (Auto) 0.06 (0.00-0.07) x10^3/uL Sodium 148 H (136-145) mmol/L Potassium 3.4 L (3.5-5.1) mmol/L Chloride 114 H (98-107) mmol/L Carbon Dioxide 25 (21-32) mmol/L Anion Gap 12.4 (5-15) mmol/L BUN 12 (7-18) mg/dL Creatinine 0.6 L (0.70-1.30) mg/dL Est Cr Clr Drug Dosing TNP Estimated GFR (MDRD) > 60 Glucose 98 (70-99) mg/dL Calcium 7.2 L (8.5-10.1) mg/dL Magnesium (1.8-2.4) mg/dL C-Reactive Protein 21.7 H (<=0.9) mg/dL 10/01/21 Range/Units 06:52 WBC (4.0-10.0) x10^3/uL RBC (4.5-6.0) x10^6/uL Hgb (14.0-18.0) g/dL Hct (40.0-52.0) % MCV (78.0-93.0) fL MCH (26.0-32.0) pg MCHC (32.0-36.0) g/dL RDW Coeff of El (10.0-15.0) % Plt Count (130-400) x10^3/uL Immature Gran % (Auto) (0.00-0.43) % Neut % (Auto) (50.0-80.0) % Lymph % (Auto) (25.0-50.0) % [place] % (Auto) (2.0-11.0) % Eos % (Auto) (0.0-4.0) % Baso % (Auto) (0.2-1.2) % Neut # (Auto) (1.8-7.7) x10^3/uL Lymph # (Auto) (1.0-4.8) x10^3/uL [place] # (Auto) (0.0-0.8) x10^3/uL Eos # (Auto) (0.0-0.5) x10^3/uL Baso # (Auto) (0.0-0.2) x10^3/uL Immature Gran # (Auto) (0.00-0.07) x10^3/uL Sodium (136-145) mmol/L Potassium (3.5-5.1) mmol/L Chloride (98-107) mmol/L Carbon Dioxide (21-32) mmol/L Anion Gap (5-15) mmol/L BUN (7-18) mg/dL Creatinine (0.70-1.30) mg/dL Est Cr Clr Drug Dosing Estimated GFR (MDRD) Glucose (70-99) mg/dL Calcium (8.5-10.1) mg/dL Magnesium 2.3 (1.8-2.4) mg/dL C-Reactive Protein (<=0.9) mg/dL Result Diagrams: 10/01/21 06:52 10/01/21 06:52 Daniele Results Last 24 hrs: Microbiology 09/27/21 12:25 Aerobic Blood Culture - Preliminary Blood - Venous - Lab Draw NO GROWTH AFTER 3 DAYS Anaerobic Blood Culture - Preliminary NO GROWTH AFTER 3 DAYS 09/27/21 11:39 Aerobic Blood Culture - Preliminary Blood - Venous NO GROWTH AFTER 3 DAYS Anaerobic Blood Culture - Preliminary NO GROWTH AFTER 3 DAYS Sepsis Event Note - Evaluation Sepsis Screening Result: No Definite Risk - Focused Exam Vital Signs: Vital Signs Temp Pulse Resp BP Pulse Ox 10/01/21 06:00 37.2 C 85 28 H 111/63 94 L 10/01/21 02:25 99/60 95 10/01/21 02:00 36.8 C 81 28 H 89/50 L 92 L 09/30/21 22:00 36.7 C 91 18 111/67 91 L - Problem List & Annotations (1) Sepsis, unspecified organism SNOMED Code(s): 74170275 Code(s): A41.9 - SEPSIS, UNSPECIFIED ORGANISM Status: Acute Current Visit: No Qualifiers: Sepsis type: sepsis due to unspecified organism Qualified Code(s): A41.9 - Sepsis, unspecified organism (2) UTI (urinary tract infection) SNOMED Code(s): 96968544 Code(s): N39.0 - URINARY TRACT INFECTION, SITE NOT SPECIFIED Status: Acute Current Visit: Yes Qualifiers: Urinary tract infection type: site unspecified Hematuria presence: with hematuria Qualified Code(s): N39.0 - Urinary tract infection, site not specified; R31.9 - Hematuria, unspecified (3) Pneumonia SNOMED Code(s): 510967047 Code(s): J18.9 - PNEUMONIA, UNSPECIFIED ORGANISM Status: Acute Current Visit: No Qualifiers: Pneumonia type: due to unspecified organism Laterality: bilateral Lung location: unspecified part of lung Qualified Code(s): J18.9 - Pneumonia, unspecified organism (4) Delirium SNOMED Code(s): 3047106 Code(s): R41.0 - DISORIENTATION, UNSPECIFIED Status: Acute Current Visit: No (5) Acute on chronic renal failure SNOMED Code(s): 167380635 Code(s): N17.9 - ACUTE KIDNEY FAILURE, UNSPECIFIED; N18.9 - CHRONIC KIDNEY DISEASE, UNSPECIFIED Status: Acute Current Visit: No Qualifiers: Acute renal failure type: unspecified Chronic kidney disease stage: stage 3 (moderate) Chronic kidney disease stage 3 subtype: unspecified whether 3a or 3b Qualified Code(s): N17.9 - Acute kidney failure, unspecified; N18.30 - Chronic kidney disease, stage 3 unspecified (6) Dehydration SNOMED Code(s): 97760776 Code(s): E86.0 - DEHYDRATION Status: Acute Current Visit: No (7) B12 deficiency SNOMED Code(s): 814340546 Code(s): E53.8 - DEFICIENCY OF OTHER SPECIFIED B GROUP VITAMINS Status: Chronic Current Visit: Yes (8) Constipation SNOMED Code(s): 68844306 Code(s): K59.00 - CONSTIPATION, UNSPECIFIED Status: Chronic Current Visit: No Qualifiers: Constipation type: unspecified constipation type Qualified Code(s): K59.00 - Constipation, unspecified (9) Hypothyroidism SNOMED Code(s): 34637301 Code(s): E03.9 - HYPOTHYROIDISM, UNSPECIFIED Status: Chronic Current Visit: No Qualifiers: Hypothyroidism type: acquired Qualified Code(s): E03.9 - Hypothyroidism, unspecified (10) Osteoporosis SNOMED Code(s): 24993695 Code(s): M81.0 - AGE-RELATED OSTEOPOROSIS W/O CURRENT PATHOLOGICAL FRACTURE Status: Chronic Current Visit: No Qualifiers: Osteoporosis type: age-related Presence of current pathological fracture: without current pathological fracture Qualified Code(s): M81.0 - Age-related osteoporosis without current pathological fracture (11) Schizophrenia SNOMED Code(s): 86528248 Code(s): F20.9 - SCHIZOPHRENIA, UNSPECIFIED Status: Chronic Current Visit: No Qualifiers: Schizophrenia type: unspecified Qualified Code(s): F20.9 - Schizophrenia, unspecified (12) Seizure SNOMED Code(s): 87818178 Code(s): R56.9 - UNSPECIFIED CONVULSIONS Status: Chronic Current Visit: No (13) TBI (traumatic brain injury) SNOMED Code(s): 342669712 Code(s): S06.9X9A - UNSP INTRACRANIAL INJURY W LOC OF UNSP DURATION, INIT Status: Chronic Current Visit: No Qualifiers: Encounter type: sequela Loss of consciousness presence/duration: with LOC of unspecified duration Qualified Code(s): S06.9X9S - Unspecified intracranial injury with loss of consciousness of unspecified duration, sequela - Problem List Review Problem List Initiated/Reviewed/Updated: Yes - My Orders Last 24 Hours: My Active Orders 10/02/21 05:11 BASIC METABOLIC PANEL,BMP [CHEM] Routine CBC WITH AUTO DIFF [HEME] Routine - Assessment Assessment:: 75 yo male hospital day #5 admitted with sepsis secondary to UTI along with GREG and decreased urine output. Labs and vitals have improved. He is still not really awake/eating/drinking. - Plan Plan:: #1 Sepsis, secondary to #2 and #3, resolved #2 UTI #3 Pneumonia - Met sepsis criteria on admission with tachycardia and leukocytosis. No longer meeting sepsis criteria. - He is still on IV antibiotics, mainly due to swallowing concerns. Continuing zosyn until the swallowing issues are further evaluated. Will have completed 5 days of azithromycin today; therefore, that will be discontinued after today's dose. - Blood cultures NGTD. Urine culture was not done from clinic. - Recheck labs in the am. #4 Delirium - Presumed to be related to above. - He is still not back to his usual self. - Possibly related to progression of underlying dementia in the setting of acute illness. - Will have swallow eval today and then will discuss further plans with family. #5 Acute on chronic renal failure, resolved #6 Iatrogenic urinary retention #7 Dehydration #8 Hypernatremia #9 Hypokalemia - GREG likely related to dehydration as well as obstruction. - Labs much better now but he is not drinking well enough to maintain hydration. - Electrolytes better on current fluids. Therefore, will continue. - Recheck labs in the am. #10 B12 deficiency #11 Constipation #12 Hypothyroidism #13 Osteoporosis #14 Schizophrenia #15 Seizures #16 h/o TBI - Continue home medications as much as he is able to take them. Hold IV lorazepam if he is able to take PO. Patient will remain on acute today - really need results of his swallow evaluation to determine longer term planning. He may d/c back on comfort cares depending on those results/discussions with family. However, he is very sedated today due to essentially getting an extra dose of benzos last night since he was also able to take the PO. Code status is full - discussed with guardians on admission. Lovenox for VTE prophylaxis. Addendum: Contacted by speech therapy. They recommend that he be NPO today and that they reassess tomorrow as he really is not able to participate with the swallow evaluation today. Will d/c all oral meds, make him NPO, and continue IV fluids. Reassess tomorrow. Note that this will take him over 96 hours of admission but he is not ready for d/c yet and there is no indication to transfer him to [facility] as they would not be doing anything differently at this point.
[2021-10-01] MEDS: LORazepam 2 MG/ML SDV IVPUSH SCH ×2 (10:32→20:26)
[2021-10-01] MEDS: Azithromycin 500 MG in Sodium Chloride 0.9% 250 ML IV SCH (16:06)
[2021-10-01] MEDS: Sodium Chloride 0.45% with KCl 1,000 ML IV SCH (21:02)
[2021-10-02 07:00] LABS: ANION GAP 13.6 mmol/L (5-15); CHLORIDE,CL 109 mmol/L (98-107); SODIUM,NA 144 mmol/L (136-145)
[2021-10-02] MEDS: Sodium Chloride 0.45% with KCl 1,000 ML IV SCH (07:13)
[2021-10-02] MEDS: Piperacillin/Tazobactam 3.375 GM in Sodium Chloride 0.9% 100 ML IV SCH ×2 (07:22→15:26)
[2021-10-02] MEDS: LORazepam 2 MG/ML SDV IVPUSH SCH (07:26)
[2021-10-02] MEDS: Enoxaparin 40 MG/0.4 ML Syringe SUBCUT SCH (08:19)
[2021-10-02] MEDS: ClonazePAM 0.5 MG Tab PO SCH ×2 (11:50→20:28)
[2021-10-02] MEDS: Gabapentin 400 MG Cap PO SCH ×2 (11:50→20:28)
--- NOTE | 2021-10-02 13:16 | PCM.PN ---
- General Info Date of Service: 10/02/21 Subjective Update: 75 yo male hospital day #6 admitted with a UTI and GREG with decreased urine output. Patient is not verbal so not able to answer questions. History comes from nu rsing and family. Family not present at bedside but concerned about his weight gain since admission. Had not been having much swelling but this is more noticeable over the past 24 hours. Nursing notes no concerns from a respiratory standpoint. More awake and restless this morning. - Review of Systems Systems Review Comment:: unable to obtain - nonverbal - Patient Data Vitals - Most Recent: Last Vital Signs Temp 36.3 C 10/02/21 10:00 Pulse 79 10/02/21 10:00 Resp 20 10/02/21 10:00 BP 107/69 10/02/21 10:00 Pulse Ox 94 L 10/02/21 10:00 Weight - Most Recent: 74.4 kg I&O - Last 24 Hours: Intake & Output 10/01/21 10/02/21 10/02/21 22:59 06:59 14:59 Intake Total 1247 1300 Output Total 450 900 Balance 797 400 Lab Results Last 24 Hours: Laboratory Results - last 24 hr 10/02/21 10/02/21 Range/Units 06:24 06:24 WBC 8.0 (4.0-10.0) x10^3/uL RBC 3.96 L (4.5-6.0) x10^6/uL Hgb 11.1 L (14.0-18.0) g/dL Hct 34.9 L (40.0-52.0) % MCV 88.1 (78.0-93.0) fL MCH 28.0 (26.0-32.0) pg MCHC 31.8 L (32.0-36.0) g/dL RDW Coeff of El 13.4 (10.0-15.0) % Plt Count 298 (130-400) x10^3/uL Immature Gran % (Auto) 1.00 H (0.00-0.43) % Neut % (Auto) 75.1 (50.0-80.0) % Lymph % (Auto) 17.8 L (25.0-50.0) % [place] % (Auto) 6.1 (2.0-11.0) % Eos % (Auto) 0.0 (0.0-4.0) % Baso % (Auto) 0.0 L (0.2-1.2) % Neut # (Auto) 6.0 (1.8-7.7) x10^3/uL Lymph # (Auto) 1.4 (1.0-4.8) x10^3/uL [place] # (Auto) 0.5 (0.0-0.8) x10^3/uL Eos # (Auto) 0.0 (0.0-0.5) x10^3/uL Baso # (Auto) 0.0 (0.0-0.2) x10^3/uL Immature Gran # (Auto) 0.08 H (0.00-0.07) x10^3/uL Sodium 144 (136-145) mmol/L Potassium 3.6 (3.5-5.1) mmol/L Chloride 109 H (98-107) mmol/L Carbon Dioxide 25 (21-32) mmol/L Anion Gap 13.6 (5-15) mmol/L BUN 10 (7-18) mg/dL Creatinine 0.6 L (0.70-1.30) mg/dL Est Cr Clr Drug Dosing TNP Estimated GFR (MDRD) > 60 Glucose 74 (70-99) mg/dL Calcium 7.3 L (8.5-10.1) mg/dL C-Reactive Protein 10.9 H (<=0.9) mg/dL Daniele Results Last 24 Hours: Microbiology 09/27/21 12:25 Aerobic Blood Culture - Final Blood - Venous - Lab Draw NO GROWTH AFTER 5 DAYS Anaerobic Blood Culture - Final NO GROWTH AFTER 5 DAYS 09/27/21 11:39 Aerobic Blood Culture - Final Blood - Venous NO GROWTH AFTER 5 DAYS Anaerobic Blood Culture - Final NO GROWTH AFTER 5 DAYS Med Orders - Current: Current Medications Clonazepam (Clonazepam 0.5 Mg Tab) 0.5 mg PO BID [facility] Last Admin: 10/02/21 11:50 Dose: 0.5 mg Documented by: Enoxaparin Sodium (Enoxaparin 40 Mg/0.4 Ml Syringe) 40 mg SUBCUT Q24H [facility] Last Admin: 10/02/21 08:19 Dose: 40 mg Documented by: Flumazenil (Flumazenil 0.1 Mg/Ml 5 Ml Mdv) 0.2 mg IVPUSH ASDIRECTED PRN PRN Reason: Respiratory Depression Gabapentin (Gabapentin 400 Mg Cap) 400 mg PO TID [facility] Last Admin: 10/02/21 11:50 Dose: 400 mg Documented by: Piperacillin Sod/Tazobactam (Sod 3.375 gm/ Sodium Chloride) 100 mls @ 25 mls/hr IV Q8H [facility] Last Admin: 10/02/21 07:22 Dose: 25 mls/hr Documented by: Lorazepam (Lorazepam 2 Mg/Ml Sdv) 0.5 mg IVPUSH Q4H PRN PRN Reason: Anxiety Last Admin: 09/30/21 00:18 Dose: 0.5 mg Documented by: Olanzapine (Olanzapine 5 Mg Tab) 5 mg PO BID [facility] Quetiapine Fumarate (Quetiapine 100 Mg Tab) 100 mg PO BEDTIME BREE Trazodone HCl (Trazodone 50 Mg Tab) 50 mg PO BEDTIME [facility] Discontinued Medications Ceftriaxone Sodium (Ceftriaxone 2 Gm Vial) 2 gm IVPUSH STAT ONE Stop: 09/27/21 12:09 Last Admin: 09/27/21 12:26 Dose: 2 gm Documented by: Ceftriaxone Sodium (Ceftriaxone 2 Gm Vial) 2 gm IVPUSH DAILY [facility] Last Admin: 09/28/21 11:08 Dose: 2 gm Documented by: Clonazepam (Clonazepam 0.5 Mg Tab) 1 mg PO BID [facility] Last Admin: 10/01/21 09:15 Dose: Not Given Documented by: Gabapentin (Gabapentin 400 Mg Cap) 800 mg PO TID [facility] Last Admin: 10/01/21 09:15 Dose: Not Given Documented by: Heparin Sodium (Porcine) (Heparin Sodium 5,000 Units/Ml Vial) 5,000 units SUBCUT Q12H [facility] Last Admin: 09/28/21 11:36 Dose: Not Given Documented by: Sodium Chloride (Normal Saline) 1,000 mls @ 100 mls/hr IV ASDIRECTED [facility] Last Admin: 09/28/21 01:58 Dose: 100 mls/hr Documented by: Azithromycin 500 mg/ Sodium (Chloride) 250 mls @ 250 mls/hr IV Q24H [facility] Stop: 10/01/21 16:01 Last Admin: 10/01/21 16:06 Dose: 250 mls/hr Documented by: Sodium Chloride (Sodium Chloride 0.45%) 1,000 mls @ 175 mls/hr IV ASDIRECTED [facility] Last Admin: 09/30/21 08:38 Dose: 175 mls/hr Documented by: Piperacillin Sod/Tazobactam (Sod 4.5 gm/ Sodium Chloride) 100 mls @ 200 mls/hr IV ONETIME ONE Stop: 09/28/21 16:44 Last Admin: 09/28/21 18:13 Dose: 200 mls/hr Documented by: Potassium Chloride/Sodium Chloride (1/2 Ns With 20 Meq Kcl) 1,000 mls @ 100 mls/hr IV ASDIRECTED [facility] Last Admin: 10/02/21 07:13 Dose: 125 mls/hr Documented by: Levothyroxine Sodium (Levothyroxine 100 Mcg Tab) 100 mcg PO ACBREAKFAST [facility] Last Admin: 10/01/21 06:50 Dose: Not Given Documented by: Lorazepam (Lorazepam 2 Mg/Ml Sdv) 0.25 mg IVPUSH BID [facility] Last Admin: 10/02/21 07:26 Dose: 0.25 mg Documented by: Olanzapine (Olanzapine 10 Mg Tab) 10 mg PO BID [facility] Last Admin: 10/01/21 09:15 Dose: Not Given Documented by: Omeprazole (Omeprazole 20 Mg Cap.Cr) 20 mg PO DAILY [facility] Last Admin: 10/01/21 09:15 Dose: Not Given Documented by: Polyethylene Glycol (Polyethylene Glycol 3350 Powder 17 Gm Packet) 17 gm PO BID [facility] Last Admin: 10/01/21 09:15 Dose: Not Given Documented by: Quetiapine Fumarate (Quetiapine 100 Mg Tab) 200 mg PO BEDTIME [facility] Last Admin: 09/30/21 19:42 Dose: 200 mg Documented by: Trazodone HCl (Trazodone 50 Mg Tab) 100 mg PO BEDTIME [facility] Last Admin: 09/30/21 19:42 Dose: 100 mg Documented by: - Exam Urinary Catheter Total Time: 4Days 21Hours General: Alert, No Acute Distress HEENT: Mucous Membr. Moist/[place] Neck: Supple, Trachea Midline, No Thyromegaly. No: Lymphadenopathy Lungs: Clear to Auscultation, Normal Respiratory Effort Cardiovascular: Regular Rate, Regular Rhythm, No Murmurs GI/Abdominal Exam: Normal Bowel Sounds, Soft, Non-Tender, No Organomegaly, No Distention, No Mass Extremities: Normal Inspection, Non-Tender, Normal Capillary Refill, Pedal Edema (1+ bilaterally) Peripheral Pulses: 2+: Radial (L), Radial (R) Skin: Warm, Dry Neurological: No New Focal Deficit - Patient Data Lab Results Last 24 hrs: Laboratory Results - last 24 hr 10/02/21 10/02/21 Range/Units 06:24 06:24 WBC 8.0 (4.0-10.0) x10^3/uL RBC 3.96 L (4.5-6.0) x10^6/uL Hgb 11.1 L (14.0-18.0) g/dL Hct 34.9 L (40.0-52.0) % MCV 88.1 (78.0-93.0) fL MCH 28.0 (26.0-32.0) pg MCHC 31.8 L (32.0-36.0) g/dL RDW Coeff of El 13.4 (10.0-15.0) % Plt Count 298 (130-400) x10^3/uL Immature Gran % (Auto) 1.00 H (0.00-0.43) % Neut % (Auto) 75.1 (50.0-80.0) % Lymph % (Auto) 17.8 L (25.0-50.0) % [place] % (Auto) 6.1 (2.0-11.0) % Eos % (Auto) 0.0 (0.0-4.0) % Baso % (Auto) 0.0 L (0.2-1.2) % Neut # (Auto) 6.0 (1.8-7.7) x10^3/uL Lymph # (Auto) 1.4 (1.0-4.8) x10^3/uL [place] # (Auto) 0.5 (0.0-0.8) x10^3/uL Eos # (Auto) 0.0 (0.0-0.5) x10^3/uL Baso # (Auto) 0.0 (0.0-0.2) x10^3/uL Immature Gran # (Auto) 0.08 H (0.00-0.07) x10^3/uL Sodium 144 (136-145) mmol/L Potassium 3.6 (3.5-5.1) mmol/L Chloride 109 H (98-107) mmol/L Carbon Dioxide 25 (21-32) mmol/L Anion Gap 13.6 (5-15) mmol/L BUN 10 (7-18) mg/dL Creatinine 0.6 L (0.70-1.30) mg/dL Est Cr Clr Drug Dosing TNP Estimated GFR (MDRD) > 60 Glucose 74 (70-99) mg/dL Calcium 7.3 L (8.5-10.1) mg/dL C-Reactive Protein 10.9 H (<=0.9) mg/dL Result Diagrams: 10/02/21 06:24 10/02/21 06:24 Daniele Results Last 24 hrs: Microbiology 09/27/21 12:25 Aerobic Blood Culture - Final Blood - Venous - Lab Draw NO GROWTH AFTER 5 DAYS Anaerobic Blood Culture - Final NO GROWTH AFTER 5 DAYS 09/27/21 11:39 Aerobic Blood Culture - Final Blood - Venous NO GROWTH AFTER 5 DAYS Anaerobic Blood Culture - Final NO GROWTH AFTER 5 DAYS Sepsis Event Note - Evaluation Sepsis Screening Result: No Definite Risk - Focused Exam Vital Signs: Vital Signs Temp Pulse Resp BP Pulse Ox 10/02/21 10:00 36.3 C 79 20 107/69 94 L 10/02/21 06:00 36.4 C 86 16 117/63 93 L 10/02/21 02:00 36.4 C 79 18 113/65 94 L - Problem List & Annotations (1) Sepsis, unspecified organism SNOMED Code(s): 31574995 Code(s): A41.9 - SEPSIS, UNSPECIFIED ORGANISM Status: Acute Current Visit: No Qualifiers: Sepsis type: sepsis due to unspecified organism Qualified Code(s): A41.9 - Sepsis, unspecified organism (2) UTI (urinary tract infection) SNOMED Code(s): 52532706 Code(s): N39.0 - URINARY TRACT INFECTION, SITE NOT SPECIFIED Status: Acute Current Visit: Yes Qualifiers: Urinary tract infection type: site unspecified Hematuria presence: with hematuria Qualified Code(s): N39.0 - Urinary tract infection, site not specified; R31.9 - Hematuria, unspecified (3) Pneumonia SNOMED Code(s): 116960551 Code(s): J18.9 - PNEUMONIA, UNSPECIFIED ORGANISM Status: Acute Current Visit: No Qualifiers: Pneumonia type: due to unspecified organism Laterality: bilateral Lung location: unspecified part of lung Qualified Code(s): J18.9 - Pneumonia, unspecified organism (4) Delirium SNOMED Code(s): 7878228 Code(s): R41.0 - DISORIENTATION, UNSPECIFIED Status: Acute Current Visit: No (5) Acute on chronic renal failure SNOMED Code(s): 740121437 Code(s): N17.9 - ACUTE KIDNEY FAILURE, UNSPECIFIED; N18.9 - CHRONIC KIDNEY DISEASE, UNSPECIFIED Status: Acute Current Visit: No Qualifiers: Acute renal failure type: unspecified Chronic kidney disease stage: stage 3 (moderate) Chronic kidney disease stage 3 subtype: unspecified whether 3a or 3b Qualified Code(s): N17.9 - Acute kidney failure, unspecified; N18.30 - Chronic kidney disease, stage 3 unspecified (6) Dehydration SNOMED Code(s): 01054307 Code(s): E86.0 - DEHYDRATION Status: Acute Current Visit: No (7) B12 deficiency SNOMED Code(s): 175464805 Code(s): E53.8 - DEFICIENCY OF OTHER SPECIFIED B GROUP VITAMINS Status: Chronic Current Visit: Yes (8) Constipation SNOMED Code(s): 80592688 Code(s): K59.00 - CONSTIPATION, UNSPECIFIED Status: Chronic Current Visit: No Qualifiers: Constipation type: unspecified constipation type Qualified Code(s): K59.00 - Constipation, unspecified (9) Hypothyroidism SNOMED Code(s): 41158939 Code(s): E03.9 - HYPOTHYROIDISM, UNSPECIFIED Status: Chronic Current Visit: No Qualifiers: Hypothyroidism type: acquired Qualified Code(s): E03.9 - Hypothyroidism, unspecified (10) Osteoporosis SNOMED Code(s): 23891557 Code(s): M81.0 - AGE-RELATED OSTEOPOROSIS W/O CURRENT PATHOLOGICAL FRACTURE Status: Chronic Current Visit: No Qualifiers: Osteoporosis type: age-related Presence of current pathological fracture: without current pathological fracture Qualified Code(s): M81.0 - Age-related osteoporosis without current pathological fracture (11) Schizophrenia SNOMED Code(s): 63614782 Code(s): F20.9 - SCHIZOPHRENIA, UNSPECIFIED Status: Chronic Current Visit: No Qualifiers: Schizophrenia type: unspecified Qualified Code(s): F20.9 - Schizophrenia, unspecified (12) Seizure SNOMED Code(s): 04051855 Code(s): R56.9 - UNSPECIFIED CONVULSIONS Status: Chronic Current Visit: No (13) TBI (traumatic brain injury) SNOMED Code(s): 049729702 Code(s): S06.9X9A - UNSP INTRACRANIAL INJURY W LOC OF UNSP DURATION, INIT Status: Chronic Current Visit: No Qualifiers: Encounter type: sequela Loss of consciousness presence/duration: with LOC of unspecified duration Qualified Code(s): S06.9X9S - Unspecified intracranial injury with loss of consciousness of unspecified duration, sequela - Problem List Review Problem List Initiated/Reviewed/Updated: Yes - My Orders Last 24 Hours: My Active Orders 10/01/21 20:00 Renew/Continue Urinary Catheter [OM.PC] Routine 10/02/21 Lunch Pureed Diet [DIET] 10/02/21 12:00 ClonazePAM [KlonoPIN] 0.5 mg PO BID Gabapentin [Neurontin] 400 mg PO TID 10/02/21 20:00 OLANZapine [ZyPREXA] 5 mg PO BID QUEtiapine [SEROqueL] 100 mg PO BEDTIME traZODone 50 mg PO BEDTIME - Assessment Assessment:: 75 yo male hospital day #6 admitted with sepsis secondary to UTI along with GREG and decreased urine output. Labs and vitals have improved. He is more awake this morning and will have his swallow evaluation today. - Plan Plan:: #1 Sepsis, secondary to #2 and #3, resolved #2 UTI #3 Pneumonia - Met sepsis criteria on admission with tachycardia and leukocytosis. No longer meeting sepsis criteria. - Plan is for d/c back to SNF tomorrow. Finished azithromycin yesterday. Will finish zosyn through today and that will complete his antibiotic therapy as today is day 7 overall. Will not need oral antibiotics upon d/c. - Blood cultures NGTD. Urine culture from hospital negative but was not done from clinic sample obtained prior to antibiotics. - Recheck labs in the am. #4 Delirium, resolving - Presumed to be related to above. He is much improved today. #5 Acute on chronic renal failure, resolved #6 Iatrogenic urinary retention, resolved #7 Dehydration, resolved #8 Hypernatremia, resolved #9 Hypokalemia, resolved - GREG likely related to dehydration as well as obstruction. - Labs back to normal today. - He is also somewhat edematous and passed his swallow evaluation this morning. - Will d/c IV fluids and allow him to eat/drink PO. - Will also remove the catheter and ensure he is able to void. #10 B12 deficiency #11 Constipation #12 Hypothyroidism #13 Osteoporosis #14 Schizophrenia #15 Seizures #16 h/o TBI - Passed his swallow evaluation. - Will d/c IV scheduled lorazepam. - Will resume all home medications but all at half the prior dose. Patient will remain on acute today - anticipate he will d/c back to SNF tomorrow barring any new issues in the next 24 hours. Code status is DNR - notes from yesterday incorrect as this had changed since admission with manager contact provider discussion with guardians. Lovenox for VTE prophylaxis. Guardians updated with above plan of care. Comfortable with d/c back to SNF tomorrow as long as nothing changes.
[2021-10-02] MEDS ORDERED: traZODone 50 MG Tab PO SCH (20:00)
[2021-10-02] MEDS ORDERED: QUEtiapine 100 MG Tab PO SCH (20:00)
[2021-10-02] MEDS: OLANZapine 5 MG Tab PO SCH (20:28)
[2021-10-03 07:11] LABS: CHLORIDE,CL 108 mmol/L (98-107); SODIUM,NA 142 mmol/L (136-145)
[2021-10-03 07:15] LABS: ANION GAP 13.5 mmol/L (5-15)
[2021-10-03] MEDS: Gabapentin 400 MG Cap PO SCH (07:16)
[2021-10-03] MEDS: OLANZapine 5 MG Tab PO SCH (07:16)
[2021-10-03] MEDS: ClonazePAM 0.5 MG Tab PO SCH (07:16)
[2021-10-03] MEDS: Enoxaparin 40 MG/0.4 ML Syringe SUBCUT SCH (08:06)
--- NOTE | 2021-10-03 08:41 | PCM.DCSUM1 ---
Discharge Summary - Hospital Course Brief History: Mr. Knowles was admitted for sepsis secondary to UTI and pneumonia after presenting to the ER for evaluation of altered mental status and decreased urine output that occurred despite treatment with IV fluids and IV/IM antibiotics at the [facility] in the preceding 2 days. - Discharge Data Discharge Date: 10/03/21 Discharge Disposition: DC/Tfer to SNF 03 Condition: Good - Referral to Home Health Primary Care Physician: Pooja Paz MD - Discharge Diagnosis/Problem(s) (1) Sepsis, unspecified organism SNOMED Code(s): 86723743 ICD Code: A41.9 - SEPSIS, UNSPECIFIED ORGANISM Status: Acute Current Visit: No Qualifiers: Sepsis type: sepsis due to unspecified organism Qualified Code(s): A41.9 - Sepsis, unspecified organism (2) UTI (urinary tract infection) SNOMED Code(s): 69688187 ICD Code: N39.0 - URINARY TRACT INFECTION, SITE NOT SPECIFIED Status: Acute Current Visit: Yes Qualifiers: Urinary tract infection type: site unspecified Hematuria presence: with hematuria Qualified Code(s): N39.0 - Urinary tract infection, site not specified; R31.9 - Hematuria, unspecified (3) Pneumonia SNOMED Code(s): 988382344 ICD Code: J18.9 - PNEUMONIA, UNSPECIFIED ORGANISM Status: Acute Current Visit: No Qualifiers: Pneumonia type: due to unspecified organism Laterality: bilateral Lung location: unspecified part of lung Qualified Code(s): J18.9 - Pneumonia, unspecified organism (4) Delirium SNOMED Code(s): 1047742 ICD Code: R41.0 - DISORIENTATION, UNSPECIFIED Status: Acute Current Visit: No (5) Acute on chronic renal failure SNOMED Code(s): 828913053 ICD Code: N17.9 - ACUTE KIDNEY FAILURE, UNSPECIFIED; N18.9 - CHRONIC KIDNEY DISEASE, UNSPECIFIED Status: Acute Current Visit: No Qualifiers: Acute renal failure type: unspecified Chronic kidney disease stage: stage 3 (moderate) Chronic kidney disease stage 3 subtype: unspecified whether 3a or 3b Qualified Code(s): N17.9 - Acute kidney failure, unspecified; N18.30 - Chronic kidney disease, stage 3 unspecified (6) Dehydration SNOMED Code(s): 65752462 ICD Code: E86.0 - DEHYDRATION Status: Acute Current Visit: No (7) B12 deficiency SNOMED Code(s): 234078404 ICD Code: E53.8 - DEFICIENCY OF OTHER SPECIFIED B GROUP VITAMINS Status: Chronic Current Visit: Yes (8) Constipation SNOMED Code(s): 67914291 ICD Code: K59.00 - CONSTIPATION, UNSPECIFIED Status: Chronic Current Visit: No Qualifiers: Constipation type: unspecified constipation type Qualified Code(s): K59.00 - Constipation, unspecified (9) Hypothyroidism SNOMED Code(s): 14040105 ICD Code: E03.9 - HYPOTHYROIDISM, UNSPECIFIED Status: Chronic Current Visit: No Qualifiers: Hypothyroidism type: acquired Qualified Code(s): E03.9 - Hypothyroidism, unspecified (10) Osteoporosis SNOMED Code(s): 99786541 ICD Code: M81.0 - AGE-RELATED OSTEOPOROSIS W/O CURRENT PATHOLOGICAL FRACTURE Status: Chronic Current Visit: No Qualifiers: Osteoporosis type: age-related Presence of current pathological fracture: without current pathological fracture Qualified Code(s): M81.0 - Age-related osteoporosis without current pathological fracture (11) Schizophrenia SNOMED Code(s): 96703130 ICD Code: F20.9 - SCHIZOPHRENIA, UNSPECIFIED Status: Chronic Current Visit: No Qualifiers: Schizophrenia type: unspecified Qualified Code(s): F20.9 - Schizophrenia, unspecified (12) Seizure SNOMED Code(s): 11114616 ICD Code: R56.9 - UNSPECIFIED CONVULSIONS Status: Chronic Current Visit: No (13) TBI (traumatic brain injury) SNOMED Code(s): 802847085 ICD Code: S06.9X9A - UNSP INTRACRANIAL INJURY W LOC OF UNSP DURATION, INIT Status: Chronic Current Visit: No Qualifiers: Encounter type: sequela Loss of consciousness presence/duration: with LOC of unspecified duration Qualified Code(s): S06.9X9S - Unspecified intracranial injury with loss of consciousness of unspecified duration, sequela - Patient Summary/Data Operative Procedure(s) Performed: none Complications: none Consults: Consultations 09/30/21 11:56 Consult to Speech Language Pathology [RESIDENCY COORDINATOR Evaluation and Treatment] [CONS] Routine Labs Pending at D/C: none Recommended Follow-up Testing/Procedures: none Planned Operative Procedure(s) after DC: none Hospital Course: The patient was admitted. A catheter was placed with drainage of >1.5 L of urine. He was started on IV fluids and IV antibiotics. His labs progressively improved. Vitals improved and remained stable. Main issue was ongoing lethargy. However, over the past 48 hours, he has been much more alert after some adjustments in his home medications. He will be discharged on half doses of all his medications. He did gain a significant amount of weight during his hospitalization, felt to be secondary to fluid resuscitation. He did have some urinary retention and will need bladder scans with possible I/O catheterizations for the next few days. His hospitalization was otherwise uncomplicated. - Patient Instructions Diet: Pureed Activity: As Tolerated Notify Provider of: Fever, Increased Pain, Swelling and Redness, Drainage, Nausea and/or Vomiting - Discharge Plan *PRESCRIPTION DRUG MONITORING PROGRAM REVIEWED*: No *COPY OF PRESCRIPTION DRUG MONITORING REPORT IN PATIENT WILLIAM: No Home Medications: Home Meds Calcium Carb, Citrate/Vit D3 [Calcium + D3 ER Tablet] 1 tab PO BID 08/11/20 [History] Cyanocobalamin (Vitamin B-12) [B-12] 1,000 mcg PO DAILY 08/11/20 [History] Docusate Sodium/Sennosides [Senna Plus] 1 tab PO BID 08/11/20 [History] Ferrous Sulfate 325 mg PO MOWEFR@0800 08/11/20 [History] Levothyroxine [Synthroid] 100 mcg PO ACBREAKFAST 08/11/20 [History] Omeprazole 20 mg PO DAILY 08/11/20 [History] bisacodyL [Dulcolax] 15 mg PO DAILY PRN 08/11/20 [History] polyethylene glycoL 3350 [MiraLAX] 17 gm PO BID 08/11/20 [History] ClonazePAM [KlonoPIN] 0.5 mg PO BID tablet 10/03/21 [Rx] Gabapentin [Neurontin] 400 mg PO TID cap 10/03/21 [Rx] OLANZapine [ZyPREXA] 5 mg PO BID tablet 10/03/21 [Rx] QUEtiapine [SEROquel] 100 mg PO BEDTIME tablet 10/03/21 [Rx] traZODone 50 mg PO BEDTIME tablet 10/03/21 [Rx] Forms: ED Department Discharge Referrals: Pooja Paz MD [Primary Care Provider] - - Discharge Summary/Plan Comment DC Time >30 min.: No Total # of Minutes for Discharge Time: 15 - General Info Date of Service: 10/03/21 Subjective Update: Patient is nonverbal. Nursing offer no concerns this morning. - Patient Data Vitals - Most Recent: Last Vital Signs Temp 36.1 C 10/03/21 05:49 Pulse 92 10/03/21 05:49 Resp 18 10/03/21 05:49 BP 118/67 10/03/21 05:49 Pulse Ox 94 L 10/03/21 05:49 Weight - Most Recent: 74.4 kg I&O - Last 24 hours: Intake & Output 10/02/21 10/03/21 10/03/21 22:59 06:59 14:59 Intake Total 200 Output Total 950 Balance -750 Lab Results - Last 24 hrs: Laboratory Results - last 24 hr 10/03/21 10/03/21 10/03/21 Range/Units 05:30 06:38 06:38 WBC 6.3 (4.0-10.0) x10^3/uL RBC 3.88 L (4.5-6.0) x10^6/uL Hgb 11.0 L (14.0-18.0) g/dL Hct 33.7 L (40.0-52.0) % MCV 86.9 (78.0-93.0) fL MCH 28.4 (26.0-32.0) pg MCHC 32.6 (32.0-36.0) g/dL RDW Coeff of El 13.5 (10.0-15.0) % Plt Count 278 (130-400) x10^3/uL Immature Gran % (Auto) 1.30 H (0.00-0.43) % Neut % (Auto) 67.7 (50.0-80.0) % Lymph % (Auto) 21.9 L (25.0-50.0) % [place] % (Auto) 9.1 (2.0-11.0) % Eos % (Auto) 0.0 (0.0-4.0) % Baso % (Auto) 0.0 L (0.2-1.2) % Neut # (Auto) 4.3 (1.8-7.7) x10^3/uL Lymph # (Auto) 1.4 (1.0-4.8) x10^3/uL [place] # (Auto) 0.6 (0.0-0.8) x10^3/uL Eos # (Auto) 0.0 (0.0-0.5) x10^3/uL Baso # (Auto) 0.0 (0.0-0.2) x10^3/uL Immature Gran # (Auto) 0.08 H (0.00-0.07) x10^3/uL Sodium 142 (136-145) mmol/L Potassium 3.5 (3.5-5.1) mmol/L Chloride 108 H (98-107) mmol/L Carbon Dioxide 24 (21-32) mmol/L Anion Gap 13.5 (5-15) mmol/L BUN 8 (7-18) mg/dL Creatinine 0.5 L (0.70-1.30) mg/dL Est Cr Clr Drug Dosing 127.75 mL/min Estimated GFR (MDRD) > 60 Glucose 99 (70-99) mg/dL Calcium 7.3 L (8.5-10.1) mg/dL SARS CoV-2 RNA Rapid WILIAM Negative (NEGATIVE) HUSSAIN Results - Last 24 hrs: Microbiology 09/27/21 12:25 Aerobic Blood Culture - Final Blood - Venous - Lab Draw NO GROWTH AFTER 5 DAYS Anaerobic Blood Culture - Final NO GROWTH AFTER 5 DAYS 09/27/21 11:39 Aerobic Blood Culture - Final Blood - Venous NO GROWTH AFTER 5 DAYS Anaerobic Blood Culture - Final NO GROWTH AFTER 5 DAYS Med Orders - Current: Current Medications Clonazepam (Clonazepam 0.5 Mg Tab) 0.5 mg PO BID [facility] Last Admin: 10/03/21 07:16 Dose: 0.5 mg Documented by: Enoxaparin Sodium (Enoxaparin 40 Mg/0.4 Ml Syringe) 40 mg SUBCUT Q24H [facility] Last Admin: 10/03/21 08:06 Dose: 40 mg Documented by: Flumazenil (Flumazenil 0.1 Mg/Ml 5 Ml Mdv) 0.2 mg IVPUSH ASDIRECTED PRN PRN Reason: Respiratory Depression Gabapentin (Gabapentin 400 Mg Cap) 400 mg PO TID [facility] Last Admin: 10/03/21 07:16 Dose: 400 mg Documented by: Lorazepam (Lorazepam 2 Mg/Ml Sdv) 0.5 mg IVPUSH Q4H PRN PRN Reason: Anxiety Last Admin: 09/30/21 00:18 Dose: 0.5 mg Documented by: Olanzapine (Olanzapine 5 Mg Tab) 5 mg PO BID [facility] Last Admin: 10/03/21 07:16 Dose: 5 mg Documented by: Quetiapine Fumarate (Quetiapine 100 Mg Tab) 100 mg PO BEDTIME [facility] Last Admin: 10/02/21 20:28 Dose: 100 mg Documented by: Trazodone HCl (Trazodone 50 Mg Tab) 50 mg PO BEDTIME [facility] Last Admin: 10/02/21 20:28 Dose: 50 mg Documented by: Discontinued Medications Ceftriaxone Sodium (Ceftriaxone 2 Gm Vial) 2 gm IVPUSH STAT ONE Stop: 09/27/21 12:09 Last Admin: 09/27/21 12:26 Dose: 2 gm Documented by: Ceftriaxone Sodium (Ceftriaxone 2 Gm Vial) 2 gm IVPUSH DAILY [facility] Last Admin: 09/28/21 11:08 Dose: 2 gm Documented by: Clonazepam (Clonazepam 0.5 Mg Tab) 1 mg PO BID [facility] Last Admin: 10/01/21 09:15 Dose: Not Given Documented by: Gabapentin (Gabapentin 400 Mg Cap) 800 mg PO TID [facility] Last Admin: 10/01/21 09:15 Dose: Not Given Documented by: Heparin Sodium (Porcine) (Heparin Sodium 5,000 Units/Ml Vial) 5,000 units SUBCUT Q12H [facility] Last Admin: 09/28/21 11:36 Dose: Not Given Documented by: Sodium Chloride (Normal Saline) 1,000 mls @ 100 mls/hr IV ASDIRECTED [facility] Last Admin: 09/28/21 01:58 Dose: 100 mls/hr Documented by: Azithromycin 500 mg/ Sodium (Chloride) 250 mls @ 250 mls/hr IV Q24H [facility] Stop: 10/01/21 16:01 Last Admin: 10/01/21 16:06 Dose: 250 mls/hr Documented by: Sodium Chloride (Sodium Chloride 0.45%) 1,000 mls @ 175 mls/hr IV ASDIRECTED [facility] Last Admin: 09/30/21 08:38 Dose: 175 mls/hr Documented by: Piperacillin Sod/Tazobactam (Sod 3.375 gm/ Sodium Chloride) 100 mls @ 25 mls/hr IV Q8H [facility] Stop: 10/02/21 23:59 Last Admin: 10/02/21 15:26 Dose: 25 mls/hr Documented by: Piperacillin Sod/Tazobactam (Sod 4.5 gm/ Sodium Chloride) 100 mls @ 200 mls/hr IV ONETIME ONE Stop: 09/28/21 16:44 Last Admin: 09/28/21 18:13 Dose: 200 mls/hr Documented by: Potassium Chloride/Sodium Chloride (1/2 Ns With 20 Meq Kcl) 1,000 mls @ 100 mls/hr IV ASDIRECTED [facility] Last Admin: 10/02/21 07:13 Dose: 125 mls/hr Documented by: Levothyroxine Sodium (Levothyroxine 100 Mcg Tab) 100 mcg PO ACBREAKFAST [facility] Last Admin: 10/01/21 06:50 Dose: Not Given Documented by: Lorazepam (Lorazepam 2 Mg/Ml Sdv) 0.25 mg IVPUSH BID [facility] Last Admin: 10/02/21 07:26 Dose: 0.25 mg Documented by: Olanzapine (Olanzapine 10 Mg Tab) 10 mg PO BID [facility] Last Admin: 10/01/21 09:15 Dose: Not Given Documented by: Omeprazole (Omeprazole 20 Mg Cap.Cr) 20 mg PO DAILY [facility] Last Admin: 10/01/21 09:15 Dose: Not Given Documented by: Polyethylene Glycol (Polyethylene Glycol 3350 Powder 17 Gm Packet) 17 gm PO BID [facility] Last Admin: 10/01/21 09:15 Dose: Not Given Documented by: Quetiapine Fumarate (Quetiapine 100 Mg Tab) 200 mg PO BEDTIME [facility] Last Admin: 09/30/21 19:42 Dose: 200 mg Documented by: Trazodone HCl (Trazodone 50 Mg Tab) 100 mg PO BEDTIME [facility] Last Admin: 09/30/21 19:42 Dose: 100 mg Documented by: - Exam General: Reports: No Acute Distress, Other (resting in bed but does alert to voice and touch) HEENT: Reports: Mucous Membr. Moist/[place] Neck: Reports: Supple, Trachea Midline, No Thyromegaly. Denies: Lymphadenopathy Lungs: Reports: Clear to Auscultation, Normal Respiratory Effort Cardiovascular: Reports: Regular Rate, Regular Rhythm, No Murmurs GI/Abdominal Exam: Normal Bowel Sounds, Soft, Non-Tender, No Organomegaly, No Distention, No Mass Extremities: Normal Inspection, Normal Capillary Refill, Pedal Edema (1+ bilateral) Skin: Reports: Warm, Dry, Intact Neurological: Reports: No New Focal Deficit
== END 2021-10-03 09:35 | DRG 871 ==
LOC: VM.ED 11:17 → VM.MS 13:26
PROVIDERS: ADMIT Family Medicine; ATTEND Family Medicine
DX: A41.9 Sepsis, unspecified organism (principal); J18.9 Pneumonia, unspecified organism; E43 Unspecified severe protein-calorie malnutrition; N39.0 Urinary tract infection, site not specified; N17.9 Acute kidney failure, unspecified; R31.9 Hematuria, unspecified; N18.30 Chronic kidney disease, stage 3 unspecified; E86.0 Dehydration; E53.8 Deficiency of other specified B group vitamins; K59.00 Constipation, unspecified; E03.9 Hypothyroidism, unspecified; M81.0 Age-related osteoporosis without current pathological fracture; F20.9 Schizophrenia, unspecified; Z87.820 Personal history of traumatic brain injury; Z79.899 Other long term (current) drug therapy; M51.36 Other intervertebral disc degeneration, lumbar region; E78.00 Pure hypercholesterolemia, unspecified; K59.09 Other constipation; G40.909 Epilepsy, unspecified, not intractable, without status epilepticus; Z20.822 Contact with and (suspected) exposure to COVID-19
CPT/HCPCS: 0241U; 36415; 36600; 51798; 70450; 71045; 80048; 80053; 81001; 82803; 83605; 83735; 84443; 85025; 86140; 87040; 87086; 92610-GN; 93005; 94760; A9270-GY; J0456; J0696; J1644; J1650; J2060; J2543; J3480; J7030; J7050; U0002

== ENCOUNTER 2021-10-05 17:34 | Emergency (ER) | payer MEDICARE, MEDICAID ==
[2021-10-05 18:43] LABS: CORONAVIRUS COVID-19 NAA NEGATIVE (NEGATIVE); RESPIRATORY SYNCYTIAL VIR NAA NEGATIVE (NEGATIVE)
--- NOTE | 2021-10-05 18:43 | EDM.PDOC ---
ED HPI GENERAL MEDICAL PROBLEM - General Chief Complaint: General Stated Complaint: increased lethargy, decreased urine output Time Seen by Provider: 10/05/21 17:35 Source of Information: Reports: EMS, [facility] Records, Old Records History Limitations: Reports: Altered Mental Status (baseline) - History of Present Illness INITIAL COMMENTS - FREE TEXT/NARRATIVE: Patient is from the [facility]. 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 was recently admitted to this facility on09/27/2021 and discharged on 10/03/2021. He was treated for pneumonia , urinary retention and uti. Not sent back on any antibiotics. He is bed bound, limited speech but has had less intake and no urine output. [facility] did place a chandler catheter and some dark urine was noted. No fevers. His guardian Zari Lomeli called and stated that he s a code level two, does not want CPR or intubation, but would like medical evaluation. She states that he did take on a lot of weight while in the hospital and was " puffy" but usually weighs 150 pounds. She states that the urine culture had some sore of problems at the last hospitalization and wants to make sure the urine is checked. Patient responds to voice with single words. Onset: Unknown/Unsure - Related Data Allergies Allergy/AdvReac Type Severity Reaction Status Date / Time No Known Allergies Allergy Verified 10/05/21 17:51 Home Meds: Home Meds Calcium Carb, Citrate/Vit D3 [Calcium + D3 ER Tablet] 1 tab PO BID 08/11/20 [History] Cyanocobalamin (Vitamin B-12) [B-12] 1,000 mcg PO DAILY 08/11/20 [History] Docusate Sodium/Sennosides [Senna Plus] 1 tab PO BID 08/11/20 [History] Ferrous Sulfate 325 mg PO MOWEFR@0800 08/11/20 [History] Levothyroxine [Synthroid] 100 mcg PO ACBREAKFAST 08/11/20 [History] Omeprazole 20 mg PO DAILY 08/11/20 [History] bisacodyL [Dulcolax] 15 mg PO DAILY PRN 08/11/20 [History] polyethylene glycoL 3350 [MiraLAX] 17 gm PO BID 08/11/20 [History] ClonazePAM [KlonoPIN] 0.5 mg PO BID tablet 10/03/21 [Rx] Gabapentin [Neurontin] 400 mg PO TID cap 10/03/21 [Rx] OLANZapine [ZyPREXA] 5 mg PO BID tablet 10/03/21 [Rx] QUEtiapine [SEROquel] 100 mg PO BEDTIME tablet 10/03/21 [Rx] traZODone 50 mg PO BEDTIME tablet 10/03/21 [Rx] Past Medical History HEENT History: Reports: None Cardiovascular History: Reports: High Cholesterol Respiratory History: Reports: None Gastrointestinal History: Reports: Chronic Constipation, Other (See Below) Other Gastrointestinal History: Dysphagia Genitourinary History: Reports: None Musculoskeletal History: Reports: Osteoporosis Neurological History: Reports: Seizure, Other (See Below) Other Neuro History: Epilepsy, Traumatic Brain Injury Psychiatric History: Reports: Dementia, Schizophrenia, Other (See Below) Other Psychiatric History: Insomnia Endocrine/Metabolic History: Reports: Hypothyroidism Hematologic History: Reports: B12 Deficiency Oncologic (Cancer) History: Reports: None Dermatologic History: Reports: None Social & Family History - Family History Family Medical History: Unobtainable - Tobacco Use Tobacco Use Status *Q: Never Tobacco User - Alcohol Use Alcohol Use History: No Alcohol Use in Last Twelve Months: No - Recreational Drug Use Recreational Drug Use: No Drug Use in Last 12 Months: No - Living Situation & Occupation Living situation: Reports: Extended Care Facility Occupation: Disabled ED ROS GENERAL - Review of Systems Review Of Systems: Unable To Obtain Reason Not Obtained: limited verbal ability. denies pain when asked ED EXAM, GENERAL - Physical Exam Exam: See Below Exam Limited By: Other (limited cognitive ability) General Appearance: Other (does not appear in distress, laying on bed. ) Eye Exam: Bilateral Eye: Normal Inspection, PERRL (holds eyes shut against resistance) Ears: Normal External Exam, Normal Canal, Hearing Grossly Normal, Normal TMs Nose: Normal Inspection Throat/Mouth: Normal Inspection, Normal Oropharynx, No Airway Compromise Head: Atraumatic Neck: Normal Inspection Respiratory/Chest: No Respiratory Distress, Lungs Clear, Normal Breath Sounds, Chest Non-Tender Cardiovascular: Normal Peripheral Pulses, Regular Rate, Rhythm GI/Abdominal: Normal Bowel Sounds, Soft, Non-Tender. No: Rigid, Rebound Back Exam: Normal Inspection, Other (no lesions, rashes or skin sores). No: CVA Tenderness (L), CVA Tenderness (R) Extremities: Normal Inspection, No Pedal Edema, Other (passive movement with resistance from patient. no limitations of upper or lower extremities) Skin Exam: Other (chronic 6 cm circular lesion on the left heel with black eschar noted. NO open areas or cellulitis. minimal erythemarous chronic area on the right heel,. no open area. pressure boots in place. ) #1 Interpretation EKG Date: 10/05/21 Time: 18:29 Rhythm: NSR [place]: Normal P-Wave: Present QRS: Normal ST-T: Normal QT: Normal (baseline artifact) Course - Vital Signs Last Recorded V/S: Last Vital Signs Temp 36.6 C 10/05/21 17:35 Pulse 81 10/05/21 17:35 Resp 16 10/05/21 17:35 BP 126/74 10/05/21 17:35 Pulse Ox 96 10/05/21 17:35 - Orders/Labs/Meds Labs: Laboratory Tests 10/05/21 10/05/21 10/05/21 Range/Units 17:58 18:00 18:18 WBC 7.4 (4.0-10.0) x10^3/uL RBC 4.50 (4.5-6.0) x10^6/uL Hgb 12.7 L D (14.0-18.0) g/dL Hct 38.6 L (40.0-52.0) % MCV 85.8 (78.0-93.0) fL MCH 28.2 (26.0-32.0) pg MCHC 32.9 (32.0-36.0) g/dL RDW Coeff of El 13.9 (10.0-15.0) % Plt Count 227 (130-400) x10^3/uL Immature Gran % (Auto) 1.10 H (0.00-0.43) % Neut % (Auto) 61.3 (50.0-80.0) % Lymph % (Auto) 23.2 L (25.0-50.0) % [place] % (Auto) 14.3 H (2.0-11.0) % Eos % (Auto) 0.0 (0.0-4.0) % Baso % (Auto) 0.1 L (0.2-1.2) % Neut # (Auto) 4.6 (1.8-7.7) x10^3/uL Lymph # (Auto) 1.7 (1.0-4.8) x10^3/uL [place] # (Auto) 1.1 H (0.0-0.8) x10^3/uL Eos # (Auto) 0.0 (0.0-0.5) x10^3/uL Baso # (Auto) 0.0 (0.0-0.2) x10^3/uL Immature Gran # (Auto) 0.08 H (0.00-0.07) x10^3/uL Sodium (136-145) mmol/L Potassium (3.5-5.1) mmol/L Chloride (98-107) mmol/L Carbon Dioxide (21-32) mmol/L Anion Gap (5-15) mmol/L BUN (7-18) mg/dL Creatinine (0.70-1.30) mg/dL Est Cr Clr Drug Dosing Estimated GFR (MDRD) Glucose (70-99) mg/dL Calcium (8.5-10.1) mg/dL Corrected Calcium (8.5-10.1) mg/dL Total Bilirubin (0.2-1.0) mg/dL AST (15-37) U/L ALT (16-63) U/L Alkaline Phosphatase (46-116) U/L C-Reactive Protein (<=0.9) mg/dL Total Protein (6.4-8.2) g/dL Albumin (3.4-5.0) g/dL Globulin Albumin/Globulin Ratio Urine Color Yellow (YELLOW) Urine Appearance Clear (CLEAR) Urine pH 6.5 (5.0-8.0) Ur Specific [place] 1.020 Urine Protein Negative (NEGATIVE) mg/dL Urine Glucose (UA) Negative (NEGATIVE) mg/dL Urine Ketones Negative (NEGATIVE) mg/dL Urine Occult Blood Negative (NEGATIVE) Urine Nitrite Negative (NEGATIVE) Urine Bilirubin Negative (NEGATIVE) Urine Urobilinogen >=8.0 H (0.2) EU/dL Ur Leukocyte Esterase Negative (NEGATIVE) Influenza Type A RNA Negative (NEGATIVE) RSV RNA (INAAT) Negative (NEGATIVE) Influenza Type B RNA Negative (NEGATIVE) SARS-CoV-2 RNA (WILIAM) Negative (NEGATIVE) 10/05/21 Range/Units 18:18 WBC (4.0-10.0) x10^3/uL RBC (4.5-6.0) x10^6/uL Hgb (14.0-18.0) g/dL Hct (40.0-52.0) % MCV (78.0-93.0) fL MCH (26.0-32.0) pg MCHC (32.0-36.0) g/dL RDW Coeff of El (10.0-15.0) % Plt Count (130-400) x10^3/uL Immature Gran % (Auto) (0.00-0.43) % Neut % (Auto) (50.0-80.0) % Lymph % (Auto) (25.0-50.0) % [place] % (Auto) (2.0-11.0) % Eos % (Auto) (0.0-4.0) % Baso % (Auto) (0.2-1.2) % Neut # (Auto) (1.8-7.7) x10^3/uL Lymph # (Auto) (1.0-4.8) x10^3/uL [place] # (Auto) (0.0-0.8) x10^3/uL Eos # (Auto) (0.0-0.5) x10^3/uL Baso # (Auto) (0.0-0.2) x10^3/uL Immature Gran # (Auto) (0.00-0.07) x10^3/uL Sodium 141 (136-145) mmol/L Potassium 3.5 (3.5-5.1) mmol/L Chloride 105 (98-107) mmol/L Carbon Dioxide 24 (21-32) mmol/L Anion Gap 15.5 H (5-15) mmol/L BUN 9 (7-18) mg/dL Creatinine 0.6 L (0.70-1.30) mg/dL Est Cr Clr Drug Dosing TNP Estimated GFR (MDRD) > 60 Glucose 88 (70-99) mg/dL Calcium 8.3 L (8.5-10.1) mg/dL Corrected Calcium 10.1 (8.5-10.1) mg/dL Total Bilirubin 0.4 (0.2-1.0) mg/dL AST 104 H (15-37) U/L ALT 42 (16-63) U/L Alkaline Phosphatase 101 (46-116) U/L C-Reactive Protein < 0.2 (<=0.9) mg/dL Total Protein 6.2 L (6.4-8.2) g/dL Albumin 1.7 L (3.4-5.0) g/dL Globulin 4.5 Albumin/Globulin Ratio 0.38 Urine Color (YELLOW) Urine Appearance (CLEAR) Urine pH (5.0-8.0) Ur Specific [place] Urine Protein (NEGATIVE) mg/dL Urine Glucose (UA) (NEGATIVE) mg/dL Urine Ketones (NEGATIVE) mg/dL Urine Occult Blood (NEGATIVE) Urine Nitrite (NEGATIVE) Urine Bilirubin (NEGATIVE) Urine Urobilinogen (0.2) EU/dL Ur Leukocyte Esterase (NEGATIVE) Influenza Type A RNA (NEGATIVE) RSV RNA (INAAT) (NEGATIVE) Influenza Type B RNA (NEGATIVE) SARS-CoV-2 RNA (WILIAM) (NEGATIVE) - Re-Assessments/Exams Free Text/Narrative Re-Assessment/Exam: 10/05/21 18:[address] with 1000 mls of dark urine in bag. VSS, non toxic appearing. will check labs, urine, chest xray 10/05/21 22:29 extensive discussion with ANGEL Hameed, testing is negative. Urine output was about 800cc. Will leave in the chandler, change monthly. discussed that he may continue to not eat well. Zari needs to figure out if she wants to look into alternative feeding like tpn or feeding tubes or if there is a desire to discuss end of life cares. Will return to [facility]. They are aware that Zari will call pcp and discuss. Will continue to attempt to feed. Departure - Departure Time of Disposition: 19:25 Disposition: DC[facility] Condition: Fair Clinical Impression: Urine retention, Indwelling Chandler catheter present, Decreased oral intake - Discharge Information *PRESCRIPTION DRUG MONITORING PROGRAM REVIEWED*: No *COPY OF PRESCRIPTION DRUG MONITORING REPORT IN PATIENT WILLIAM: No Instructions: Acute Urinary Retention, Male Referrals: Pooja Paz MD [Primary Care Provider] - Forms: ED Department Discharge Additional Instructions: Leave the chandler catheter in place, monthly changes should be done. Document intake and output daily Document daily weights Patient is a Code level 2, no cpr no intubation per Discussion with Guardian Zari Hameed will be calling Dr. Luong about patient's decreased oral intake, que stion end of life cares versus feeding tube. Continue to try to feed as before. Testing was negative for UTI, pneumonia, flu, rsv, covid, kidney failure Sepsis Event Note (ED) - Focused Exam Vital Signs: Vital Signs Temp Pulse Resp BP Pulse Ox 10/05/21 17:35 36.6 C 81 16 126/74 96
[2021-10-05 18:48] LABS: CHLORIDE,CL 105 mmol/L (98-107); SODIUM,NA 141 mmol/L (136-145)
--- NOTE | 2021-10-05 18:57 | CR ---
[id number] RAD/RAD Chest PA or AP 1V EXAM: FRONTAL CHEST INDICATION: Shortness of breath. COMPARISON: September 27, 2021. DISCUSSION: Chronic bibasilar scarring with no definite acute infiltrates. Normal heart size. No effusions. Chronic lower bilateral rib fractures. IMPRESSION: 1. No acute findings. Sebastián Carter MD 10/05/21 [id number] Thank you for allowing us to participate in the care of your patient.
[2021-10-05 19:01] LABS: ANION GAP 15.5 mmol/L (5-15)
== END 2021-10-05 20:31 ==
LOC: VM.ED 17:34
DX: T83.091A Other mechanical complication of indwelling urethral catheter, initial encounter (principal); R33.9 Retention of urine, unspecified; R63.0 Anorexia; E78.00 Pure hypercholesterolemia, unspecified; E03.9 Hypothyroidism, unspecified; Z79.899 Other long term (current) drug therapy; Z20.822 Contact with and (suspected) exposure to COVID-19
CPT/HCPCS: 0241U; 36415; 71045; 80053; 81003; 85025; 86140; 93005; 99285